=== PATIENT | male | born 1940 | race Caucasian/White ===

== ENCOUNTER → 2017-03-16 | Outpatient (CLI) | payer MEDICAID, MEDICARE ==
[~2017-03-16] MED LIST: *BLDWK1; *BLDWK2; *BLDWK8; *ECHO -; /CARB20TAB; /CARBXR20T; /ESOM40CA; /ESOM40CA OR; /PANT40TA; ACET65TA; ACET65TA OR; AMLO10TA2 PO; AMLO10TAB OR; ASPI81TAEC PO; ATEN50TA2; ATENOLOL50; ATENOLOL50 PO; ATOR1TAB21 PO; CARB1TAB20 PO; CEFT500T; COLA100C2 PO; COLACE PO; DEPA250C; DEPA250T3; DEPA250T3 OR; DEPA250T3 PO; DEPA500T; DEPA500T OR; DEPA500T PO; DEPA500T2 OR; DEPAKOT500 PO; DIOV160T5; DIOVAN160 PO; DIVA125C5 PO; DIVA250T7 PO; DIVA500T9 PO; DONETAB6 PO; ESOM1CAP5 PO; FERR325T; FERR325T PO; FERR325T3 PO; FERROUS325; FERROUS325 PO; KEPPRA PO; LISI40TA; LOPR50TA OR; MACR50CA; MACR50CA OR; MAG-TAB; METO-207 PO; METO10TA2; METO50TA4 PO; MILKSUS; NAME10TA PO; NEXI20CA OR; NEXI40CA PO; NEXI40GR PO; NEXIUM40 PO; OXYB5TAB5 OR; PERC5TAB8 OR; PROTONIX40 PO; REGLAN10 PO; SELSUN; SENN8.6T5; SLOWTAB; TEGR200T; TEGR200T OR; TEGR200T PO; TOPR25TA PO; TRAM50TA2 OR; VICO5TAB; VITA-121 PO; VITA10002 PO; VITA100027; VITA100T; VITA100T OR; VITA500C24 PO; VITA500T OR; VITAD1000T PO; VITAMIN B12; ZANTAC150 PO; [UNRECOGNIZED DRUG - CODE] PO; [UNRECOGNIZED DRUG - CODE] PO
[2017-03-16 08:34] LABS: BASO # 0.1 K/mm3 (0.0-0.2); BASO % 1.6 % (0.0-1.0); EOS # 0.5 K/mm3 (0.0-0.50); EOS % 12.5 % (0.0-3.0); LYMPH # 1.5 K/mm3 (1.5-4.5); LYMPH % 31.5 % (24.0-44.0); MEAN CORPUSCULAR HEMOGLOBIN 31.9 pg (27.0-33.0); MEAN CORPUSCULAR HGB CONC 32.5 g/dl (32.0-36.5); MEAN CORPUSCULAR VOLUME 98.3 fl (80.0-96.0); MONO # 0.3 K/mm3 (0.0-0.8); MONO % 8.2 % (0.0-5.0); NEUTROPHILS # 1.8 K/mm3 (1.8-7.7); RED CELL DISTRIBUTION WIDTH 12.6 % (11.5-14.5); WHITE BLOOD COUNT 4.2 K/mm3 (4.0-10.0)
[2017-03-16 09:16] LABS: ALBUMIN 3.3 GM/DL (3.2-5.2); ALBUMIN/GLOBULIN RATIO 0.89 (1.00-1.93); ALKALINE PHOSPHATASE 69 U/L (45-117); ALT/SGPT 21 U/L (12-78); ANION GAP 7 MEQ/L (8-16); AST/SGOT 18 U/L (15-37); BILIRUBIN,TOTAL 0.3 MG/DL (0.2-1.0); BLOOD UREA NITROGEN 31 MG/DL (7-18); CALCIUM LEVEL 8.4 MG/DL (8.8-10.2); CARBON DIOXIDE LEVEL 28 MEQ/L (21-32); CHLORIDE LEVEL 101 MEQ/L (98-107); CHOLESTEROL LEVEL 187 MG/DL (<200); CREATININE FOR GFR 1.02 MG/DL (0.70-1.30); FREE T4 0.73 NG/DL (0.76-1.46); GLOMERULAR FILTRATION RATE > 60.0 (>42); GLUCOSE, FASTING 85 MG/DL (83-110); POTASSIUM SERUM 4.5 MEQ/L (3.5-5.1); SODIUM LEVEL 136 MEQ/L (136-145); TRIGLYCERIDES LEVEL 177 MG/DL (<150)
[2017-03-16 10:16] LABS: FOLATE > 24.0 NG/ML; VITAMIN B12 LEVEL 1419 PG/ML
== END ==
LOC: M LAB 07:53
PROVIDERS: ATTEND Family Medicine
DX: I10 Essential (primary) hypertension (principal); K21.9 Gastro-esophageal reflux disease without esophagitis; G30.9 Alzheimer's disease, unspecified; G40.909 Epilepsy, unspecified, not intractable, without status epilepticus

== ENCOUNTER → 2017-03-16 | Outpatient (CLI) | payer MEDICAID, MEDICARE ==
[2017-03-16 08:32] LABS: BASO % 1.1 % (0.0-1.0); EOS # 0.6 K/mm3 (0.0-0.50); EOS % 14.2 % (0.0-3.0); LARGE UNSTAINED CELL # 0.1 K/mm3 (0.0-0.4); LARGE UNSTAINED CELL % 3.4 % (0.0-4.0); LYMPH # 1.4 K/mm3 (1.5-4.5); MEAN CORPUSCULAR HEMOGLOBIN 32.1 pg (27.0-33.0); MEAN CORPUSCULAR HGB CONC 32.8 g/dl (32.0-36.5); MONO # 0.3 K/mm3 (0.0-0.8); MONO % 7.6 % (0.0-5.0); NEUTROPHILS # 1.8 K/mm3 (1.8-7.7); NEUTROPHILS % 42.7 % (36.0-66.0); PLATELET COUNT, AUTOMATED 174 k/mm3 (150-450); RED CELL DISTRIBUTION WIDTH 12.7 % (11.5-14.5); WHITE BLOOD COUNT 4.1 K/mm3 (4.0-10.0)
[2017-03-16 08:55] LABS: ALBUMIN 3.2 GM/DL (3.2-5.2); ALBUMIN/GLOBULIN RATIO 0.82 (1.00-1.93); ALKALINE PHOSPHATASE 71 U/L (45-117); ALT/SGPT 22 U/L (12-78); ANION GAP 7 MEQ/L (8-16); AST/SGOT 19 U/L (15-37); BILIRUBIN,TOTAL 0.3 MG/DL (0.2-1.0); BLOOD UREA NITROGEN 31 MG/DL (7-18); CALCIUM LEVEL 8.8 MG/DL (8.8-10.2); CARBAMAZEPINE (TEGRETOL) LEVEL 4.6 UG/ML (4.0-10.0); CARBON DIOXIDE LEVEL 29 MEQ/L (21-32); CHLORIDE LEVEL 101 MEQ/L (98-107); CREATININE FOR GFR 1.06 MG/DL (0.70-1.30); GLOMERULAR FILTRATION RATE > 60.0 (>42); GLUCOSE, FASTING 87 MG/DL (83-110); POTASSIUM SERUM 5.1 MEQ/L (3.5-5.1); SODIUM LEVEL 137 MEQ/L (136-145); TOTAL PROTEIN 7.1 GM/DL (6.4-8.2)
== END ==
LOC: M LAB 07:56
PROVIDERS: ATTEND Psychiatry & Neurology Neurology
DX: G40.909 Epilepsy, unspecified, not intractable, without status epilepticus (principal)

== ENCOUNTER → 2017-03-17 | Outpatient (REF) | payer MEDICARE | LOC: SKLABADC 09:05 | PROVIDERS: ATTEND Family Medicine | DX: I10 Essential (primary) hypertension (principal); Z79.899 Other long term (current) drug therapy ==

== ENCOUNTER → 2017-05-27 | Outpatient (REF) | payer MEDICARE ==
[~2017-05-27] MED LIST changes: +FERR1TAB8 PO; -METO-207 PO; +METO1TAB7 PO
[2017-05-27 10:38] LABS: MEAN CORPUSCULAR HEMOGLOBIN 32.5 pg (27.0-33.0); MEAN CORPUSCULAR VOLUME 98.5 fl (80.0-96.0); RED CELL DISTRIBUTION WIDTH 12.5 % (11.5-14.5); WHITE BLOOD COUNT 3.9 K/mm3 (4.0-10.0)
[2017-05-27 11:30] LABS: ALBUMIN/GLOBULIN RATIO 0.77 (1.00-1.93); ALKALINE PHOSPHATASE 65 U/L (45-117); ALT/SGPT 21 U/L (12-78); ANION GAP 7 MEQ/L (8-16); AST/SGOT 17 U/L (15-37); BILIRUBIN,TOTAL 0.3 MG/DL (0.2-1.0); BLOOD UREA NITROGEN 21 MG/DL (7-18); CALCIUM LEVEL 8.9 MG/DL (8.8-10.2); CARBON DIOXIDE LEVEL 30 MEQ/L (21-32); CHLORIDE LEVEL 99 MEQ/L (98-107); CREATININE FOR GFR 0.91 MG/DL (0.70-1.30); FREE T4 0.76 NG/DL (0.76-1.46); GLOMERULAR FILTRATION RATE > 60.0 (>42); GLUCOSE, FASTING 77 MG/DL (83-110); SODIUM LEVEL 136 MEQ/L (136-145); TOTAL PROTEIN 6.9 GM/DL (6.4-8.2)
== END ==
LOC: SKLABADC 08:48
PROVIDERS: ATTEND Family Medicine
DX: E03.9 Hypothyroidism, unspecified (principal)

== ENCOUNTER → 2017-07-26 | Outpatient (REF) | payer MEDICARE ==
[2017-07-26 11:44] LABS: BASO # 0.1 K/mm3 (0.0-0.2); BASO % 1.4 % (0.0-1.0); EOS # 0.6 K/mm3 (0.0-0.50); EOS % 12.5 % (0.0-3.0); LYMPH # 1.6 K/mm3 (1.5-4.5); LYMPH % 31.3 % (24.0-44.0); MEAN CORPUSCULAR HEMOGLOBIN 32.8 pg (27.0-33.0); MEAN CORPUSCULAR HGB CONC 33.2 g/dl (32.0-36.5); MEAN CORPUSCULAR VOLUME 98.9 fl (80.0-96.0); MONO # 0.4 K/mm3 (0.0-0.8); MONO % 8.4 % (0.0-5.0); NEUTROPHILS # 2.1 K/mm3 (1.8-7.7); RED CELL DISTRIBUTION WIDTH 12.5 % (11.5-14.5)
== END ==
LOC: SKLABADC 08:54
PROVIDERS: ATTEND Family Medicine
DX: D64.9 Anemia, unspecified (principal)

== ENCOUNTER → 2018-01-19 | Outpatient (REF) | payer MEDICARE ==
[2018-01-19 11:08] LABS: FREE T4 0.81 NG/DL (0.76-1.46)
== END ==
LOC: SKLABADC 09:40
DX: E03.9 Hypothyroidism, unspecified (principal)
CPT/HCPCS: 84443

== ENCOUNTER 2018-01-21 14:55 | Inpatient (IN) | payer MEDICARE, MEDICAID ==
[2018-01-21 15:44] LABS: HEMATOCRIT 43.4 % (42.0-52.0); HEMOGLOBIN 14.5 g/dl (14.0-18.0); MEAN CORPUSCULAR HEMOGLOBIN 31.7 pg (27.0-33.0); MEAN CORPUSCULAR HGB CONC 33.4 g/dl (32.0-36.5); RED BLOOD COUNT 4.57 10^6/uL (4.30-6.10); RED CELL DISTRIBUTION WIDTH 12.7 % (11.5-14.5); WHITE BLOOD COUNT 5.9 10^3/uL (4.0-10.0)
[2018-01-21 15:45] LABS: BASO % 0.5 % (0.0-1.0); EOS # 0.1 10^3/uL (0.0-0.50); EOS % 1.7 % (0.0-3.0); IMMATURE GRANULOCYTE % 0.3 % (0-3.0); LYMPH # 1.2 10^3/uL (1.5-4.5); LYMPH % 19.9 % (24.0-44.0); MONO # 0.8 10^3/uL (0.0-0.8); NEUTROPHILS # 3.8 10^3/uL (1.8-7.7); NEUTROPHILS % 64.6 % (36.0-66.0); PLATELET COUNT, AUTOMATED 170 10^3/uL (150-450)
[2018-01-21 16:03] LABS: AMMONIA 23 uMOL/L (<32)
[2018-01-21 16:07] LABS: ALBUMIN 3.6 GM/DL (3.2-5.2); ALBUMIN/GLOBULIN RATIO 0.88 (1.00-1.93); ALKALINE PHOSPHATASE 110 U/L (45-117); ALT/SGPT 33 U/L (12-78); ANION GAP 7 MEQ/L (8-16); AST/SGOT 23 U/L (7-37); BILIRUBIN,TOTAL 0.3 MG/DL (0.2-1.0); BLOOD UREA NITROGEN 21 MG/DL (7-18); CALCIUM LEVEL 9.3 MG/DL (8.8-10.2); CARBON DIOXIDE LEVEL 29 MEQ/L (21-32); CHLORIDE LEVEL 96 MEQ/L (98-107); GLOMERULAR FILTRATION RATE > 60.0 (>42); GLUCOSE, FASTING 97 MG/DL (70-100); POTASSIUM SERUM 4.3 MEQ/L (3.5-5.1); SODIUM LEVEL 132 MEQ/L (136-145); TOTAL PROTEIN 7.7 GM/DL (6.4-8.2); VALPROIC ACID (DEPAKOTE) 92.1 UG/ML (50.0-100.0)
[2018-01-21 16:10] LABS: LACTIC ACID SEPSIS PROTOCOL 1.4 MMOL/L (0.4-2.0)
[2018-01-21 17:17] LABS: ABG BASE EXCESS 0.7 (-2.0-2.0); ABG HCO3 24.1 MEQ/L (22.0-26.0); ABG O2 SATURATION 95.3 % (95.0-99.0); ABG PARTIAL PRESSURE CO2 34.9 mmHg (35.0-45.0); ABG PARTIAL PRESSURE O2 74.1 mmHg (75.0-100.0); ABG STANDARD HCO3 25.1 MEQ/L (22.0-26.0); ABG TOTAL CO2 25.2 MEQ/L (23.0-31.0); ABG pH (ARTERIAL) 7.457 UNITS (7.350-7.450)
[2018-01-21 17:19] LABS: AMORPHOUS SEDIMENT RFX SMALL (NEGATIVE); KETONE, URINE AUTO RFX TRACE mg/dL (NEGATIVE); LEUKOCYTE ESTERASE UR AUTO RFX 1+ (NEGATIVE); NITRITE, URINE AUTO RFX NEGATIVE (NEGATIVE); RBC, URINE AUTO RFX 6 /HPF (0-3); SPECIFIC GRAVITY UR AUTO RFX 1.014 (1.002-1.035); SQUAM EPITHELIAL CELL UR AURFX 0 /HPF (0-6); WBC, URINE AUTO RFX 17 /HPF (0-3)
[2018-01-21 17:36] LABS: CPK CREATINE PHOSPHOKINASE 63 U/L (39-308); TROPONIN I < 0.02 NG/ML (< 0.10)
[2018-01-21 17:37] LABS: CARBAMAZEPINE (TEGRETOL) LEVEL 6.9 UG/ML (4.0-10.0)
[2018-01-21 17:37] LABS: FREE T4 0.88 NG/DL (0.76-1.46)
[2018-01-21 17:38] LABS: INFLUENZA A AMPLIFICATION NEGATIVE (NEGATIVE); INFLUENZA B AMPLIFICATION NEGATIVE (NEGATIVE)
[2018-01-21 17:42] LABS: CK-MB VALUE MASS 1.2 NG/ML (0.0-3.6)
[2018-01-21] MEDS: CEFTRIAXONE SOD 1 GM in APPROPRIATE DILUENT 1 EA IV (18:30)
[2018-01-21] MEDS: NS 1,000 ML IV (19:18)
[2018-01-21] MEDS ORDERED: ONDANSETRON 4MG/2ML VIAL (J2405) IV (19:30)
[2018-01-21] MEDS: DOCUSATE SODIUM 100 MG CAP PO (21:00)
[2018-01-22] MEDS: ACETAMINOPHEN TAB 650MG DOSE (2X325MG) PO (00:22)
[2018-01-22] MEDS: DIVALPROEX 500MG *ER* TAB PO ×2 (00:23→20:57)
[2018-01-22] MEDS: HEPARIN SOD (PORCINE) 5000 UNITS/ML VIAL SC ×4 (00:23→21:06)
[2018-01-22] MEDS: GENTAMICIN 0.3% OPHTH SOL 5 ML BTL OU ×7 (00:24→23:33)
[2018-01-22] MEDS: carBAMazepine 200 MG TAB PO ×3 (00:26→21:06)
[2018-01-22] MEDS ORDERED: LORazepam 2 MG/ML VIAL (J2060) As Ordered (02:54)
[2018-01-22] MEDS ORDERED: LORazepam 2 MG/ML VIAL (J2060) IV (03:00)
[2018-01-22 03:04] LABS: BEDSIDE GLUCOSE 122 MG/DL (83-110)
[2018-01-22] MEDS: NS 1,000 ML IV (04:10)
[2018-01-22 06:13] LABS: HEMATOCRIT 35.1 % (42.0-52.0); PLATELET COUNT, AUTOMATED 129 10^3/uL (150-450); RED BLOOD COUNT 3.62 10^6/uL (4.30-6.10); RED CELL DISTRIBUTION WIDTH 12.8 % (11.5-14.5); WHITE BLOOD COUNT 11.1 10^3/uL (4.0-10.0)
[2018-01-22] MEDS: LEVOTHYROXINE 25MCG TABLET (0.025MG) PO (06:16)
[2018-01-22 06:19] LABS: HEMOGLOBIN 11.6 g/dl (14.0-18.0)
[2018-01-22 06:46] LABS: ANION GAP 8 MEQ/L (8-16); BLOOD UREA NITROGEN 24 MG/DL (7-18); CALCIUM LEVEL 8.4 MG/DL (8.8-10.2); CARBON DIOXIDE LEVEL 26 MEQ/L (21-32); CHLORIDE LEVEL 103 MEQ/L (98-107); CREATININE FOR GFR 1.05 MG/DL (0.70-1.30); GLOMERULAR FILTRATION RATE > 60.0 (>42); GLUCOSE, FASTING 84 MG/DL (70-100); POTASSIUM SERUM 3.9 MEQ/L (3.5-5.1); SODIUM LEVEL 137 MEQ/L (136-145)
[2018-01-22] MEDS: DOCUSATE SODIUM 100 MG CAP PO ×2 (09:34→20:57)
[2018-01-22] MEDS: VITAMIN D 1,000 INTERNATIONAL UNITS TABLET PO (09:34)
[2018-01-22] MEDS: METOPROLOL SUCC (TopROL XL) 50MG **XL** TAB PO (09:34)
[2018-01-22] MEDS: FERROUS SULFATE 325MG TAB PO (09:34)
[2018-01-22] MEDS: CYANOCOBALAMIN 500 MCG TAB PO (09:35)
[2018-01-22] MEDS: DIVALPROEX 250MG *ER* TAB PO (09:35)
[2018-01-22] MEDS: ASPIRIN 81 MG ENTERIC TAB PO (09:36)
[2018-01-22] MEDS: CEFTRIAXONE SOD 1 GM in APPROPRIATE DILUENT 1 EA IV (18:17)
[2018-01-23] MEDS: GENTAMICIN 0.3% OPHTH SOL 5 ML BTL OU ×5 (04:00→20:33)
[2018-01-23 05:20] LABS: HEMATOCRIT 38.1 % (42.0-52.0); HEMOGLOBIN 12.4 g/dl (14.0-18.0); MEAN CORPUSCULAR HEMOGLOBIN 31.5 pg (27.0-33.0); MEAN CORPUSCULAR HGB CONC 32.5 g/dl (32.0-36.5); MEAN CORPUSCULAR VOLUME 96.7 fl (80.0-96.0); PLATELET COUNT, AUTOMATED 121 10^3/uL (150-450); RED BLOOD COUNT 3.94 10^6/uL (4.30-6.10); RED CELL DISTRIBUTION WIDTH 12.9 % (11.5-14.5); WHITE BLOOD COUNT 4.8 10^3/uL (4.0-10.0)
[2018-01-23 05:34] LABS: ANION GAP 8 MEQ/L (8-16); BLOOD UREA NITROGEN 22 MG/DL (7-18); CALCIUM LEVEL 8.2 MG/DL (8.8-10.2); CARBON DIOXIDE LEVEL 26 MEQ/L (21-32); CHLORIDE LEVEL 104 MEQ/L (98-107); CREATININE FOR GFR 0.89 MG/DL (0.70-1.30); GLOMERULAR FILTRATION RATE > 60.0 (>42); GLUCOSE, FASTING 82 MG/DL (70-100); POTASSIUM SERUM 3.6 MEQ/L (3.5-5.1); SODIUM LEVEL 138 MEQ/L (136-145)
[2018-01-23] MEDS: HEPARIN SOD (PORCINE) 5000 UNITS/ML VIAL SC ×3 (06:17→21:46)
[2018-01-23] MEDS: LEVOTHYROXINE 25MCG TABLET (0.025MG) PO ×2 (06:17→08:51)
[2018-01-23] MEDS: DIVALPROEX 250MG *ER* TAB PO (08:50)
[2018-01-23] MEDS: ASPIRIN 81 MG ENTERIC TAB PO (08:50)
[2018-01-23] MEDS: DOCUSATE SODIUM 100 MG CAP PO ×2 (08:50→20:33)
[2018-01-23] MEDS: METOPROLOL SUCC (TopROL XL) 50MG **XL** TAB PO (08:51)
[2018-01-23] MEDS: VITAMIN D 1,000 INTERNATIONAL UNITS TABLET PO (08:51)
[2018-01-23] MEDS: FERROUS SULFATE 325MG TAB PO (08:51)
[2018-01-23] MEDS: CYANOCOBALAMIN 500 MCG TAB PO (08:51)
[2018-01-23] MEDS: carBAMazepine 200 MG TAB PO ×2 (08:53→20:33)
[2018-01-23] MEDS ORDERED: SLF 3 ML SYR IV (14:30)
[2018-01-23] MEDS: CEFTRIAXONE SOD 1 GM in APPROPRIATE DILUENT 1 EA IV (18:17)
[2018-01-23] MEDS: DIVALPROEX 500MG *ER* TAB PO (20:33)
[2018-01-23] MEDS: SLF 3 ML SYR IV (21:46)
[2018-01-24] MEDS: GENTAMICIN 0.3% OPHTH SOL 5 ML BTL OU ×6 (04:37→20:05)
[2018-01-24 05:22] LABS: HEMATOCRIT 37.7 % (42.0-52.0); HEMOGLOBIN 12.6 g/dl (14.0-18.0); MEAN CORPUSCULAR HEMOGLOBIN 32.1 pg (27.0-33.0); MEAN CORPUSCULAR HGB CONC 33.4 g/dl (32.0-36.5); MEAN CORPUSCULAR VOLUME 96.2 fl (80.0-96.0); PLATELET COUNT, AUTOMATED 134 10^3/uL (150-450); RED BLOOD COUNT 3.92 10^6/uL (4.30-6.10); RED CELL DISTRIBUTION WIDTH 12.9 % (11.5-14.5); WHITE BLOOD COUNT 5.4 10^3/uL (4.0-10.0)
[2018-01-24 05:45] LABS: ANION GAP 7 MEQ/L (8-16); BLOOD UREA NITROGEN 25 MG/DL (7-18); CALCIUM LEVEL 8.4 MG/DL (8.8-10.2); CARBON DIOXIDE LEVEL 28 MEQ/L (21-32); CHLORIDE LEVEL 103 MEQ/L (98-107); GLOMERULAR FILTRATION RATE > 60.0 (>42); GLUCOSE, FASTING 84 MG/DL (70-100); POTASSIUM SERUM 3.7 MEQ/L (3.5-5.1); SODIUM LEVEL 138 MEQ/L (136-145)
[2018-01-24] MEDS: HEPARIN SOD (PORCINE) 5000 UNITS/ML VIAL SC ×3 (06:07→23:01)
[2018-01-24] MEDS: SLF 3 ML SYR IV ×3 (06:08→20:32)
[2018-01-24] MEDS: FERROUS SULFATE 325MG TAB PO (09:06)
[2018-01-24] MEDS: METOPROLOL SUCC (TopROL XL) 50MG **XL** TAB PO (09:06)
[2018-01-24] MEDS: DOCUSATE SODIUM 100 MG CAP PO ×2 (09:07→20:32)
[2018-01-24] MEDS: ASPIRIN 81 MG ENTERIC TAB PO (09:07)
[2018-01-24] MEDS: VITAMIN D 1,000 INTERNATIONAL UNITS TABLET PO (09:07)
[2018-01-24] MEDS: CYANOCOBALAMIN 500 MCG TAB PO (09:07)
[2018-01-24] MEDS: DIVALPROEX 250MG *ER* TAB PO (09:08)
[2018-01-24] MEDS: carBAMazepine 200 MG TAB PO ×2 (09:08→20:32)
[2018-01-24] MEDS: CEFTRIAXONE SOD 1 GM in APPROPRIATE DILUENT 1 EA IV (16:05)
[2018-01-24] MEDS: DIVALPROEX 500MG *ER* TAB PO (20:31)
[2018-01-25] MEDS: GENTAMICIN 0.3% OPHTH SOL 5 ML BTL OU ×7 (00:11→23:56)
[2018-01-25 05:16] LABS: HEMATOCRIT 38.9 % (42.0-52.0); HEMOGLOBIN 12.8 g/dl (14.0-18.0); MEAN CORPUSCULAR HEMOGLOBIN 31.3 pg (27.0-33.0); MEAN CORPUSCULAR HGB CONC 32.9 g/dl (32.0-36.5); MEAN CORPUSCULAR VOLUME 95.1 fl (80.0-96.0); PLATELET COUNT, AUTOMATED 146 10^3/uL (150-450); RED BLOOD COUNT 4.09 10^6/uL (4.30-6.10); RED CELL DISTRIBUTION WIDTH 12.7 % (11.5-14.5); WHITE BLOOD COUNT 5.2 10^3/uL (4.0-10.0)
[2018-01-25] MEDS: LEVOTHYROXINE 25MCG TABLET (0.025MG) PO (05:31)
[2018-01-25] MEDS: HEPARIN SOD (PORCINE) 5000 UNITS/ML VIAL SC ×3 (05:32→21:19)
[2018-01-25] MEDS: SLF 3 ML SYR IV ×3 (05:38→21:20)
[2018-01-25 05:42] LABS: ANION GAP 6 MEQ/L (8-16); BLOOD UREA NITROGEN 23 MG/DL (7-18); CALCIUM LEVEL 8.5 MG/DL (8.8-10.2); CARBON DIOXIDE LEVEL 29 MEQ/L (21-32); CHLORIDE LEVEL 102 MEQ/L (98-107); CREATININE FOR GFR 0.84 MG/DL (0.70-1.30); GLOMERULAR FILTRATION RATE > 60.0 (>42); GLUCOSE, FASTING 85 MG/DL (70-100); POTASSIUM SERUM 3.5 MEQ/L (3.5-5.1); SODIUM LEVEL 137 MEQ/L (136-145)
[2018-01-25] MEDS: carBAMazepine 200 MG TAB PO ×2 (08:20→21:18)
[2018-01-25] MEDS: VITAMIN D 1,000 INTERNATIONAL UNITS TABLET PO (08:20)
[2018-01-25] MEDS: DOCUSATE SODIUM 100 MG CAP PO ×2 (08:20→21:18)
[2018-01-25] MEDS: CYANOCOBALAMIN 500 MCG TAB PO (08:20)
[2018-01-25] MEDS: ASPIRIN 81 MG ENTERIC TAB PO (08:20)
[2018-01-25] MEDS: DIVALPROEX 250MG *ER* TAB PO ×2 (08:20→21:19)
[2018-01-25] MEDS: FERROUS SULFATE 325MG TAB PO (08:21)
[2018-01-25] MEDS: METOPROLOL SUCC (TopROL XL) 50MG **XL** TAB PO (08:22)
[2018-01-25] MEDS: CEFTRIAXONE SOD 1 GM in APPROPRIATE DILUENT 1 EA IV (18:39)
[2018-01-26] MEDS: GENTAMICIN 0.3% OPHTH SOL 5 ML BTL OU ×3 (04:33→11:23)
[2018-01-26] MEDS: SLF 3 ML SYR IV ×2 (05:43→13:01)
[2018-01-26] MEDS: HEPARIN SOD (PORCINE) 5000 UNITS/ML VIAL SC ×2 (05:44→13:01)
[2018-01-26] MEDS: LEVOTHYROXINE 25MCG TABLET (0.025MG) PO (05:44)
[2018-01-26 05:51] LABS: HEMATOCRIT 37.8 % (42.0-52.0); HEMOGLOBIN 12.6 g/dl (14.0-18.0); MEAN CORPUSCULAR HEMOGLOBIN 31.7 pg (27.0-33.0); MEAN CORPUSCULAR HGB CONC 33.3 g/dl (32.0-36.5); PLATELET COUNT, AUTOMATED 141 10^3/uL (150-450); RED BLOOD COUNT 3.98 10^6/uL (4.30-6.10); RED CELL DISTRIBUTION WIDTH 12.6 % (11.5-14.5); WHITE BLOOD COUNT 4.7 10^3/uL (4.0-10.0)
[2018-01-26 06:15] LABS: ANION GAP 6 MEQ/L (8-16); BLOOD UREA NITROGEN 24 MG/DL (7-18); CALCIUM LEVEL 8.5 MG/DL (8.8-10.2); CARBON DIOXIDE LEVEL 29 MEQ/L (21-32); CHLORIDE LEVEL 101 MEQ/L (98-107); CREATININE FOR GFR 0.96 MG/DL (0.70-1.30); GLOMERULAR FILTRATION RATE > 60.0 (>42); GLUCOSE, FASTING 84 MG/DL (70-100); POTASSIUM SERUM 3.9 MEQ/L (3.5-5.1); SODIUM LEVEL 136 MEQ/L (136-145)
[2018-01-26] MEDS: DOCUSATE SODIUM 100 MG CAP PO (08:52)
[2018-01-26] MEDS: DIVALPROEX 250MG *ER* TAB PO (08:53)
[2018-01-26] MEDS: CYANOCOBALAMIN 500 MCG TAB PO (08:53)
[2018-01-26] MEDS: FERROUS SULFATE 325MG TAB PO (08:53)
[2018-01-26] MEDS: carBAMazepine 200 MG TAB PO (08:54)
[2018-01-26] MEDS: METOPROLOL SUCC (TopROL XL) 50MG **XL** TAB PO (08:54)
[2018-01-26] MEDS: ASPIRIN 81 MG ENTERIC TAB PO (08:54)
[2018-01-26] MEDS: VITAMIN D 1,000 INTERNATIONAL UNITS TABLET PO (08:54)
[2018-01-26] MEDS ORDERED: SLF 3 ML SYR IV ×2 (09:15→14:00)
== END 2018-01-26 14:28 | disposition home or self-care (01) | DRG 689 ==
LOC: M PCU 01-22 21:58 → M ED 14:55 → M ED INP 19:18
DX: N39.0 Urinary tract infection, site not specified (principal); G93.41 Metabolic encephalopathy; E87.1 Hypo-osmolality and hyponatremia; Z66 Do not resuscitate; H01.009 Unspecified blepharitis unspecified eye, unspecified eyelid; H10.9 Unspecified conjunctivitis; R56.9 Unspecified convulsions; K21.9 Gastro-esophageal reflux disease without esophagitis; I10 Essential (primary) hypertension; F03.90 Unspecified dementia, unspecified severity, without behavioral disturbance, psychotic disturbance, mood disturbance, and anxiety; Z79.82 Long term (current) use of aspirin; Z79.899 Other long term (current) drug therapy

== ENCOUNTER → 2018-01-21 | Outpatient (REF) | payer MEDICARE, MEDICAID | LOC: M SFHCLERA 13:32 | DX: R41.82 Altered mental status, unspecified (principal); [UNRECOGNIZED DIAGNOSIS CODE] | CPT/HCPCS: 87086 ==

== ENCOUNTER → 2018-08-03 | Outpatient (CLI) | payer MEDICARE, MEDICAID, OTHER ==
[2018-08-03 10:09] LABS: BASO # 0.1 10^3/uL (0.0-0.2); BASO % 1.3 % (0.0-1.0); EOS # 0.4 10^3/uL (0.0-0.50); EOS % 9.6 % (0.0-3.0); HEMOGLOBIN 13.5 g/dl (13.5-17.5); IMMATURE GRANULOCYTE % 0.4 % (0-3.0); LYMPH # 1.2 10^3/uL (1.5-4.5); LYMPH % 26.8 % (24.0-44.0); MEAN CORPUSCULAR HEMOGLOBIN 31.1 pg (27.0-33.0); MEAN CORPUSCULAR HGB CONC 32.9 g/dl (32.0-36.5); MEAN CORPUSCULAR VOLUME 94.5 fl (80.0-96.0); MONO # 0.5 10^3/uL (0.0-0.8); MONO % 12.1 % (0.0-5.0); NEUTROPHILS # 2.2 10^3/uL (1.8-7.7); NEUTROPHILS % 49.8 % (36.0-66.0); PLATELET COUNT, AUTOMATED 173 10^3/uL (150-450); RED BLOOD COUNT 4.34 10^6/uL (4.30-6.10); WHITE BLOOD COUNT 4.5 10^3/uL (4.0-10.0)
[2018-08-03 10:41] LABS: ALBUMIN 3.5 GM/DL (3.2-5.2); ALBUMIN/GLOBULIN RATIO 0.97 (1.00-1.93); ALKALINE PHOSPHATASE 68 U/L (45-117); ALT/SGPT 20 U/L (12-78); ANION GAP 8 MEQ/L (8-16); AST/SGOT 17 U/L (7-37); BILIRUBIN,TOTAL 0.4 MG/DL (0.2-1.0); BLOOD UREA NITROGEN 22 MG/DL (7-18); CALCIUM LEVEL 8.8 MG/DL (8.8-10.2); CARBON DIOXIDE LEVEL 28 MEQ/L (21-32); CHLORIDE LEVEL 101 MEQ/L (98-107); GLOMERULAR FILTRATION RATE > 60.0 (>42); GLUCOSE, FASTING 89 MG/DL (70-100); POTASSIUM SERUM 4.3 MEQ/L (3.5-5.1); SODIUM LEVEL 137 MEQ/L (136-145); TOTAL PROTEIN 7.1 GM/DL (6.4-8.2); VALPROIC ACID (DEPAKOTE) 64.2 UG/ML (50.0-100.0)
== END ==
LOC: M LAB 09:35
DX: R56.9 Unspecified convulsions (principal)
CPT/HCPCS: 80156

== ENCOUNTER 2018-08-20 11:46 | Emergency (ER) | payer MEDICARE, MEDICAID ==
[2018-08-20 12:27] LABS: BASO # 0.1 10^3/uL (0.0-0.2); BASO % 0.7 % (0.0-1.0); EOS # 0.1 10^3/uL (0.0-0.50); EOS % 0.7 % (0.0-3.0); HEMATOCRIT 44.5 % (42.0-52.0); HEMOGLOBIN 14.8 g/dl (13.5-17.5); IMMATURE GRANULOCYTE % 0.1 % (0-3.0); LYMPH # 0.7 10^3/uL (1.5-4.5); LYMPH % 9.3 % (24.0-44.0); MEAN CORPUSCULAR HEMOGLOBIN 31.7 pg (27.0-33.0); MEAN CORPUSCULAR HGB CONC 33.3 g/dl (32.0-36.5); MEAN CORPUSCULAR VOLUME 95.3 fl (80.0-96.0); NEUTROPHILS # 5.5 10^3/uL (1.8-7.7); NEUTROPHILS % 76.2 % (36.0-66.0); PLATELET COUNT, AUTOMATED 176 10^3/uL (150-450); RED BLOOD COUNT 4.67 10^6/uL (4.30-6.10); RED CELL DISTRIBUTION WIDTH 13.4 % (11.5-14.5); WHITE BLOOD COUNT 7.3 10^3/uL (4.0-10.0)
[2018-08-20] MEDS: NS 1,000 ML IV (12:33)
[2018-08-20 12:56] LABS: ALBUMIN 3.4 GM/DL (3.2-5.2); ALBUMIN/GLOBULIN RATIO 0.79 (1.00-1.93); ALKALINE PHOSPHATASE 79 U/L (45-117); ALT/SGPT 22 U/L (12-78); AMYLASE 73 U/L (25-115); ANION GAP 11 MEQ/L (8-16); AST/SGOT 19 U/L (7-37); BILIRUBIN,DIRECT 0.1 MG/DL (0.0-0.2); BILIRUBIN,TOTAL 0.5 MG/DL (0.2-1.0); BLOOD UREA NITROGEN 22 MG/DL (7-18); CALCIUM LEVEL 8.7 MG/DL (8.8-10.2); CARBON DIOXIDE LEVEL 27 MEQ/L (21-32); CHLORIDE LEVEL 99 MEQ/L (98-107); CREATININE FOR GFR 1.12 MG/DL (0.70-1.30); GLOMERULAR FILTRATION RATE > 60.0 (>42); GLUCOSE, FASTING 115 MG/DL (70-100); LIPASE 143 U/L (73-393); POTASSIUM SERUM 4.1 MEQ/L (3.5-5.1); SODIUM LEVEL 137 MEQ/L (136-145); TOTAL PROTEIN 7.7 GM/DL (6.4-8.2)
[2018-08-20 13:02] LABS: LACTIC ACID SEPSIS PROTOCOL 1.4 MMOL/L (0.4-2.0)
[2018-08-20 13:05] LABS: KETONE, URINE AUTO RFX TRACE mg/dL (NEGATIVE); RBC, URINE AUTO RFX 8 /HPF (0-3); SPECIFIC GRAVITY UR AUTO RFX 1.015 (1.002-1.035); SQUAM EPITHELIAL CELL UR AURFX 0 /HPF (0-6)
[2018-08-20 13:10] LABS: LEUKOCYTE ESTERASE UR AUTO RFX 2+ (NEGATIVE); NITRITE, URINE AUTO RFX POSITIVE (NEGATIVE); WBC, URINE AUTO RFX 67 /HPF (0-3)
[2018-08-20 13:31] LABS: INFLUENZA A AMPLIFICATION NEGATIVE (NEGATIVE); INFLUENZA B AMPLIFICATION NEGATIVE (NEGATIVE); RSV AMPLIFICATION NEGATIVE (NEGATIVE)
[2018-08-20] MEDS: cefTRIAXone SOD 1 GM in D5W MINI-BAG PLUS 50 ML IV (14:09)
== END 2018-08-20 15:00 | disposition home or self-care (01) ==
LOC: M ED 11:46
DX: N39.0 Urinary tract infection, site not specified (principal); I10 Essential (primary) hypertension; G40.909 Epilepsy, unspecified, not intractable, without status epilepticus; F03.90 Unspecified dementia, unspecified severity, without behavioral disturbance, psychotic disturbance, mood disturbance, and anxiety; K21.9 Gastro-esophageal reflux disease without esophagitis; E53.8 Deficiency of other specified B group vitamins; K73.9 Chronic hepatitis, unspecified; F20.9 Schizophrenia, unspecified; Z79.899 Other long term (current) drug therapy; Z79.82 Long term (current) use of aspirin; Z79.890 Hormone replacement therapy; Z87.891 Personal history of nicotine dependence
CPT/HCPCS: J0696

== ENCOUNTER 2018-10-14 03:51 | Emergency (ER) | payer MEDICARE, MEDICAID ==
[2018-10-14] MEDS: NS 500 ML IV (04:15)
[2018-10-14 04:34] LABS: BASO # 0.1 10^3/uL (0.0-0.2); BASO % 0.8 % (0.0-1.0); EOS # 0.2 10^3/uL (0.0-0.50); EOS % 1.9 % (0.0-3.0); HEMATOCRIT 39.4 % (42.0-52.0); HEMOGLOBIN 12.8 g/dl (13.5-17.5); IMMATURE GRANULOCYTE % 0.4 % (0-3.0); LYMPH # 1.4 10^3/uL (1.5-4.5); LYMPH % 10.9 % (24.0-44.0); MEAN CORPUSCULAR HEMOGLOBIN 31.5 pg (27.0-33.0); MEAN CORPUSCULAR HGB CONC 32.5 g/dl (32.0-36.5); MONO # 1.2 10^3/uL (0.0-0.8); MONO % 9.6 % (0.0-5.0); NEUTROPHILS # 9.7 10^3/uL (1.8-7.7); NEUTROPHILS % 76.4 % (36.0-66.0); PLATELET COUNT, AUTOMATED 249 10^3/uL (150-450); RED BLOOD COUNT 4.06 10^6/uL (4.30-6.10); RED CELL DISTRIBUTION WIDTH 13.9 % (11.5-14.5); WHITE BLOOD COUNT 12.7 10^3/uL (4.0-10.0)
[2018-10-14 04:56] LABS: ANION GAP 8 MEQ/L (8-16); BLOOD UREA NITROGEN 31 MG/DL (7-18); CALCIUM LEVEL 8.5 MG/DL (8.8-10.2); CARBAMAZEPINE (TEGRETOL) LEVEL 6.8 UG/ML (4.0-10.0); CARBON DIOXIDE LEVEL 27 MEQ/L (21-32); CHLORIDE LEVEL 102 MEQ/L (98-107); GLOMERULAR FILTRATION RATE > 60.0 (>42); GLUCOSE, FASTING 88 MG/DL (70-100); POTASSIUM SERUM 4.3 MEQ/L (3.5-5.1); SODIUM LEVEL 137 MEQ/L (136-145); VALPROIC ACID (DEPAKOTE) 63.2 UG/ML (50.0-100.0)
[2018-10-14] MEDS: DIVALPROEX 250 MG TAB PO (05:15)
== END 2018-10-14 08:01 | disposition home or self-care (01) ==
LOC: M ED 03:51
DX: G40.909 Epilepsy, unspecified, not intractable, without status epilepticus (principal); E86.0 Dehydration
CPT/HCPCS: 70450

== ENCOUNTER → 2019-02-27 | Outpatient (CLI) | payer MEDICARE, MEDICAID ==
[~2019-02-27] MED LIST changes: -/CARB20TAB; -/CARBXR20T; -/ESOM40CA; -/ESOM40CA OR; -/PANT40TA; +AMLO10TA5 PO; +ASPI1TAB15 PO; +CARB1TAB20; +DEPA250T2 PO; +KEFL500C17 PO; +LEVO25TA5 PO; +METO-1 PO; +NEXI1CAP3; +NEXI1CAP3 OR; +PROT1TAB2; +TEGR1TAB; -TOPR25TA PO
[2019-02-27 08:55] LABS: BASO # 0.1 10^3/uL (0.0-0.2); BASO % 1.6 % (0.0-1.0); EOS # 0.6 10^3/uL (0.0-0.50); EOS % 9.9 % (0.0-3.0); HEMATOCRIT 42.2 % (42.0-52.0); HEMOGLOBIN 13.6 g/dl (13.5-17.5); LYMPH # 1.5 10^3/uL (1.5-4.5); LYMPH % 26.8 % (24.0-44.0); MEAN CORPUSCULAR HEMOGLOBIN 31.3 pg (27.0-33.0); MEAN CORPUSCULAR HGB CONC 32.2 g/dl (32.0-36.5); MEAN CORPUSCULAR VOLUME 97.2 fl (80.0-96.0); MONO # 0.6 10^3/uL (0.0-0.8); MONO % 10.7 % (0.0-5.0); NEUTROPHILS # 2.8 10^3/uL (1.8-7.7); NEUTROPHILS % 50.6 % (36.0-66.0); PLATELET COUNT, AUTOMATED 186 10^3/uL (150-450); RED BLOOD COUNT 4.34 10^6/uL (4.30-6.10); WHITE BLOOD COUNT 5.5 10^3/uL (4.0-10.0)
[2019-02-27 09:28] LABS: ALBUMIN 3.4 GM/DL (3.2-5.2); ALT/SGPT 23 U/L (12-78); BILIRUBIN,TOTAL 0.3 MG/DL (0.2-1.0); BLOOD UREA NITROGEN 32 MG/DL (7-18); CALCIUM LEVEL 8.8 MG/DL (8.8-10.2); CARBON DIOXIDE LEVEL 30 MEQ/L (21-32); CHLORIDE LEVEL 103 MEQ/L (98-107); CHOLESTEROL LEVEL 202 MG/DL (<200); CHOLESTEROL RISK RATIO 3.366 (<5); CREATININE FOR GFR 1.05 MG/DL (0.70-1.30); FREE T4 0.76 NG/DL (0.76-1.46); GLOMERULAR FILTRATION RATE > 60.0 (>42); GLUCOSE, FASTING 86 MG/DL (70-100); HDL CHOLESTEROL 60 MG/DL (>40); LDL CHOLESTEROL 107 MG/DL (<100); NON-HDL-C 142 MG/DL; POTASSIUM SERUM 4.4 MEQ/L (3.5-5.1); SODIUM LEVEL 138 MEQ/L (136-145); TOTAL PROTEIN 7.2 GM/DL (6.4-8.2); TRIGLYCERIDES LEVEL 176 MG/DL (<150)
== END ==
LOC: M LAB 08:11
PROVIDERS: ATTEND Family Medicine
DX: E03.9 Hypothyroidism, unspecified (principal); E78.5 Hyperlipidemia, unspecified; R56.9 Unspecified convulsions; Z51.81 Encounter for therapeutic drug level monitoring

== ENCOUNTER → 2019-02-27 | Outpatient (CLI) | payer MEDICARE, MEDICAID ==
[2019-02-27 08:54] LABS: BASO # 0.1 10^3/uL (0.0-0.2); BASO % 1.2 % (0.0-1.0); EOS # 0.5 10^3/uL (0.0-0.50); EOS % 9.3 % (0.0-3.0); HEMATOCRIT 42.4 % (42.0-52.0); HEMOGLOBIN 13.7 g/dl (13.5-17.5); LYMPH # 1.5 10^3/uL (1.5-4.5); LYMPH % 27.5 % (24.0-44.0); MEAN CORPUSCULAR HEMOGLOBIN 31.3 pg (27.0-33.0); MEAN CORPUSCULAR HGB CONC 32.3 g/dl (32.0-36.5); MEAN CORPUSCULAR VOLUME 96.8 fl (80.0-96.0); MONO # 0.6 10^3/uL (0.0-0.8); MONO % 11.4 % (0.0-5.0); NEUTROPHILS # 2.8 10^3/uL (1.8-7.7); NEUTROPHILS % 50.1 % (36.0-66.0); PLATELET COUNT, AUTOMATED 193 10^3/uL (150-450); RED BLOOD COUNT 4.38 10^6/uL (4.30-6.10); WHITE BLOOD COUNT 5.6 10^3/uL (4.0-10.0)
[2019-02-27 09:22] LABS: ALBUMIN 3.5 GM/DL (3.2-5.2); ALT/SGPT 23 U/L (12-78); BILIRUBIN,TOTAL 0.3 MG/DL (0.2-1.0); BLOOD UREA NITROGEN 31 MG/DL (7-18); CALCIUM LEVEL 8.8 MG/DL (8.8-10.2); CARBAMAZEPINE (TEGRETOL) LEVEL 6.4 UG/ML (4.0-10.0); CARBON DIOXIDE LEVEL 31 MEQ/L (21-32); CHLORIDE LEVEL 102 MEQ/L (98-107); CREATININE FOR GFR 1.08 MG/DL (0.70-1.30); GLOMERULAR FILTRATION RATE > 60.0 (>42); GLUCOSE, FASTING 86 MG/DL (70-100); POTASSIUM SERUM 4.4 MEQ/L (3.5-5.1); SODIUM LEVEL 137 MEQ/L (136-145); TOTAL PROTEIN 7.1 GM/DL (6.4-8.2); VALPROIC ACID (DEPAKOTE) 80.4 UG/ML (50.0-100.0)
== END ==
LOC: M LAB 08:20
PROVIDERS: ATTEND Psychiatry & Neurology Neurology
DX: R56.9 Unspecified convulsions (principal); Z51.81 Encounter for therapeutic drug level monitoring

== ENCOUNTER 2019-03-12 09:12 | Inpatient (IN) | payer MEDICARE, MEDICAID ==
[~2019-03-12] VITALS: Ht 177.8 cm; Wt 66.0 kg
[2019-03-12] MEDS: METOPROLOL SUCC (TopROL XL) 50MG **XL** TAB PO SCH (09:00)
[2019-03-12] MEDS ORDERED: DIVA250T7 PO (09:54)
[2019-03-12] MEDS ORDERED: VITA100014 PO (09:54)
[2019-03-12] MEDS ORDERED: METO1TAB7 PO (09:54)
[2019-03-12] MEDS ORDERED: ASPI81TA85 PO (09:54)
[2019-03-12] MEDS ORDERED: FERR1TAB8 PO (09:54)
[2019-03-12] MEDS ORDERED: VITA-122 PO (09:54)
[2019-03-12] MEDS ORDERED: CARB1TAB20 PO ×2 (09:54)
[2019-03-12] MEDS ORDERED: SYNT50TA PO (09:54)
[2019-03-12 09:57] LABS: VENOUS BASE EXCESS -0.7 (-2.0-2.0); VENOUS HCO3 23.8 MEQ/L (23.0-27.0); VENOUS O2 SATURATION 88.7 % (60.0-80.0); VENOUS PARTIAL PRESSURE CO2 39.2 mmHg (38.0-50.0); VENOUS PARTIAL PRESSURE O2 56.3 mmHg (30.0-50.0); VENOUS PH 7.402 UNITS (7.330-7.430); VENOUS STANDARD HCO3 23.7 MEQ/L
[2019-03-12 10:02] LABS: BASO % 0.2 % (0.0-1.0); HEMATOCRIT 42.4 % (42.0-52.0); HEMOGLOBIN 13.9 g/dl (13.5-17.5); LYMPH # 0.7 10^3/uL (1.5-4.5); MEAN CORPUSCULAR HEMOGLOBIN 31.7 pg (27.0-33.0); MEAN CORPUSCULAR HGB CONC 32.8 g/dl (32.0-36.5); MEAN CORPUSCULAR VOLUME 96.6 fl (80.0-96.0); MONO # 1.8 10^3/uL (0.0-0.8); MONO % 15.8 % (0.0-5.0); NEUTROPHILS # 8.9 10^3/uL (1.8-7.7); NEUTROPHILS % 77.7 % (36.0-66.0); PLATELET COUNT, AUTOMATED 177 10^3/uL (150-450); RED BLOOD COUNT 4.39 10^6/uL (4.30-6.10); WHITE BLOOD COUNT 11.5 10^3/uL (4.0-10.0)
--- NOTE | 2019-03-12 10:15 | REP ---
CT Head without contrast HISTORY: Altered mental status COMPARISON: 10/14/2018 Areas of decreased attenuation are present in the periventricular and subcortical white matter. This represents small-vessel ischemic disease. There is no intraparenchymal hemorrhage, acute infarct, mass or midline shift. The ventricular system and cortical sulci as well as subarachnoid space in the posterior fossa are dilated consistent with moderate volume loss. There is no extra cerebral collection. There is no fracture. T mucosal thickening is present in the ethmoid sinuses. IMPRESSION: 1. Small vessel ischemic disease. 2. Moderate volume loss. Electronically Signed by Kwabena Roberts MD 03/12/2019 10:06 A
--- NOTE | 2019-03-12 10:16 | REP ---
Chest one-view HISTORY: Altered mental status Comparison: 08/20/2018 There is elevation of the right hemidiaphragm. The lungs are clear. The heart is normal in size. The pulmonary vasculature is normal in appearance. Impression: No acute disease. Electronically Signed by Kwabena Roberts MD 03/12/2019 10:07 A
--- NOTE | 2019-03-12 10:21 | ECGEPIP ---
Stationary ECG Study [facility] - ED Test Date: 2019-03-12 Pat Name: LINO FAY Department: Room: - Gender: M Medical Oncology Physician: : [id number] Requested By: Diann Garrido Order Number: [id number] Reading MD: Diann Garrido Measurements Intervals Mather Rate: 88 P: 58 AK: 149 QRS: 15 QRSD: 97 T: 36 QT: 358 QTc: 435 Interpretive Statements SINUS RHYTHM SIMILAR 08/20/18 Electronically Signed On 03-12-2019 10:20:53 EDT by Diann Garrido
[2019-03-12] MEDS: NS 1,000 ML IV SCH ×2 (10:23→19:43)
[2019-03-12 10:36] LABS: ALBUMIN 3.3 GM/DL (3.2-5.2); ALT/SGPT 23 U/L (12-78); BILIRUBIN,DIRECT 0.1 MG/DL (0.0-0.2); BILIRUBIN,TOTAL 0.4 MG/DL (0.2-1.0); BLOOD UREA NITROGEN 41 MG/DL (7-18); CALCIUM LEVEL 8.4 MG/DL (8.8-10.2); CARBAMAZEPINE (TEGRETOL) LEVEL 11.2 UG/ML (4.0-10.0); CARBON DIOXIDE LEVEL 26 MEQ/L (21-32); CHLORIDE LEVEL 101 MEQ/L (98-107); CPK CREATINE PHOSPHOKINASE 135 U/L (39-308); CREATININE FOR GFR 2.63 MG/DL (0.70-1.30); GLOMERULAR FILTRATION RATE 25.3 (>42); GLUCOSE, FASTING 115 MG/DL (70-100); MB/CK RELATIVE INDEX 1.26 (< OR =4); POTASSIUM SERUM 4.1 MEQ/L (3.5-5.1); SODIUM LEVEL 136 MEQ/L (136-145); TROPONIN I < 0.02 NG/ML (< 0.10); VALPROIC ACID (DEPAKOTE) 97.2 UG/ML (50.0-100.0)
[2019-03-12 10:38] LABS: AMPHETAMINES LEVEL URINE NEGATIVE (NEGATIVE); BARBITURATES URINE NEGATIVE (NEGATIVE); BENZODIAZEPINES URINE NEGATIVE (NEGATIVE); CANNABINOIDS URINE NEGATIVE (NEGATIVE); COCAINE METABOLITE URINE NEGATIVE (NEGATIVE); METHADONE URINE NEGATIVE (NEGATIVE); OPIATES URINE NEGATIVE (NEGATIVE); PHENCYCLIDINE URINE NEGATIVE (NEGATIVE)
[2019-03-12 10:40] LABS: OSMOLALITY SERUM 302 MOSM/KG (280-301)
[2019-03-12] MEDS ORDERED: cefTRIAXone SOD 2 GM in D5W MINI-BAG PLUS 50 ML IV ONE (12:15)
--- NOTE | 2019-03-12 12:15 | REP ---
CT ABDOMEN AND PELVIS WITHOUT CONTRAST: HISTORY: Renal failure. COMPARISON: 01/23/2009 The liver, pancreas, spleen and adrenal glands are normal in appearance. Stranding is present in the perinephric fat bilaterally. This may represent inflammation or scarring. There is mild dilatation of the renal collecting systems and proximal and mid ureters. The distal ureters are not seen. There is no mass, adenopathy or free fluid. Parenchymal density is present in the right lower lobe consistent with atelectasis or scar. The patient is status post left total hip replacement. This partially obscures the inferior pelvis. The patient is status post repair of left inguinal hernia. A small amount of fat and scar tissue are present at the surgical site. The urinary bladder is normal in appearance. A large quantity of stool is present in the distal sigmoid colon and rectum. Degenerative change is present in the spine. There is an old compression fracture of the L1 vertebral body with minimal height loss. IMPRESSION: 1. There is bilateral stranding in the perinephric fat. This may represent inflammatory change or scar. There is mild dilatation of the renal collecting systems and proximal and mid ureters. 2. Right lower lobe atelectasis or infiltrate. 3. The patient is status post repair of a left inguinal hernia. A small amount of fat and scar tissue are present at the hernia site. Electronically Signed by Kwabena Roberts MD 03/12/2019 12:19 P
[2019-03-12] MEDS ORDERED: cefTRIAXone SOD 1 GM in D5W MINI-BAG PLUS 50 ML IV SCH (14:00)
[2019-03-12] MEDS: AZITHROMYCIN INJ 500 MG, VIAL MATE ADAPTER 1 EACH in D5W 250 ML IV SCH (14:51)
--- NOTE | 2019-03-12 14:59 | HPEPDOC ---
General Date of Admission Mar 12, 2019 at 13:08 Chief Complaint The patient is a 78-year-old male who was brought into the emergency room after he was found nonresponsive and febrile at home. History of Present Illness Patient is a 78-year-old male with a PMHx of HTN, Seizure disorder, Dementia, Hx of UTI (Klebsiella), GERD who presented to the emergency room after his found nonresponsive at home. Family had noted that he had been experiencing a fever. EMS was called and patient was transferred to [facility] for further evaluation Discussed with Nephew, Neel Barajas. Reported that at baseline is confused and requires several attempts before he can give a simple answer. Nephew indicated that patients mentation has been deteriorating over the last 3 or 4 days. He attributes this to the fact that he may have a urinary tract infection as this was common in the past. As per the nephew. Patient did not have any other complaints other than a mild cough , although was unable to expectorate anything. Home Medications Scheduled Aspirin (Aspir 81) 81 Mg Tablet.dr, 81 MG PO DAILY, (Reported) Carbamazepine (Carbamazepine) 200 Mg Tablet, 300 MG PO QAM, (Reported) Carbamazepine (Carbamazepine) 200 Mg Tablet, 200 MG PO QHS, (Reported) Cholecalciferol (Vitamin D3) (Vitamin D3) 1,000 Unit Tablet, 1,000 UNIT PO DAILY, (Reported) Cyanocobalamin (Vitamin B-12) (Vitamin B-12) 1,000 Mcg Tablet, 1,000 MCG PO DAILY, (Reported) Divalproex Sodium (Divalproex Sodium ER) 250 Mg Tab.er.24h, 750 MG PO BID, (Reported) Ferrous Sulfate (Ferrous Sulfate) 325 Mg Tablet, 325 MG PO DAILY, (Reported) Levothyroxine Sodium (Synthroid) 50 Mcg Tablet, 50 MCG PO DAILY, (Reported) Metoprolol Succinate (Metoprolol Succinate) 50 Mg Tab.er.24h, 50 MG PO DAILY, (Reported) Allergies Coded Allergies: No Known Allergies (Verified , 10/29/08) Past Medical History Medical History HTN, Seizure disorder, Dementia, Hx of UTI (Klebsiella), GERD Surgical History - Based on review of medical records there does not appear to be any past surgical history Family History - Unable to be obtained; however, is noncontributory Social History - Unable to be obtained as patient is very confused / demented - Lives with Nephew, Neel Barajas - No documented history of smoking, alcohol use or illicit substances Review of Systems Other systems Unable to obtain review of systems this patient is confused / demented Vital Signs - Vitals: BP 158/92, HR 82, RR 18, Sat 95%NC2L, Temp 99.1F - General: Lying in bed, No acute distress, Awake / Alert - HEENT: NC, AT, PERRLA - CVS: RRR, +S1S2, - Murmurs / rubs / gallops - Lungs: Fair air entry bilaterally, + Rhonchi appreciated at R lung base, no wheezing / crackles - Abdomen: Soft, Non-distended, Non-tender - Extremities: No lower extremity edema, No calf tenderness - Neuro: No focal motor or sensory deficit - Skin: No visible rashes Laboratory Data Labs 24H Laboratory Tests 2 03/12/19 09:35: Immature Granulocyte % (Auto) 0.3, White Blood Count 11.5H, Red Blood Count 4.39, Hemoglobin 13.9, Hematocrit 42.4, Mean Corpuscular Volume 96.6H, Mean Corpuscular Hemoglobin 31.7, Mean Corpuscular Hemoglobin Concent 32.8, Red Cell Distribution Width 13.4, Platelet Count 177, Neutrophils (%) (Auto) 77.7H, Ly mphocytes (%) (Auto) 6.0L, Monocytes (%) (Auto) 15.8H, Eosinophils (%) (Auto) 0.0, Basophils (%) (Auto) 0.2, Neutrophils # (Auto) 8.9H, Lymphocytes # (Auto) 0.7L, Monocytes # (Auto) 1.8H, Eosinophils # (Auto) 0.0, Basophils # (Auto) 0.0, Nucleated Red Blood Cells % (auto) 0.0, Urine Color YELLOW, Urine Appearance HAZY, Urine pH 5.0, Urine Specific [place] 1.014, Urine Protein NEGATIVE, Urine Glucose (UA) NEGATIVE, Urine Ketones NEGATIVE, Urine Blood 2+H, Urine Nitrite NEGATIVE, Urine Bilirubin NEGATIVE, Urine Urobilinogen 0.2, Urine Leukocyte Esterase 3+H, Urine WBC (Auto) TNTCH, Urine RBC (Auto) 5H, Urine Hyaline Casts (Auto) 0, Urine Bacteria (Auto) 1+H, Urine Squamous Epithelial Cells 0, Urine Mucus (Auto) SMALL, Urine Sperm (Auto) , Blood Gas Bicarbonate Standard 23.7, Venous Blood pH 7.402, Venous Blood Partial Pressure CO2 39.2, Venous Blood Partial Pressure O2 56.3H, Venous Blood Total Carbon Dioxide 25.0, Venous Blood HCO3 23.8, Venous Blood Oxygen Saturation 88.7H, Venous Blood Base Excess -0.7, Anion Gap 9, Glomerular Filtration Rate 25.3L, Osmolality 302H, Lactic Acid Leve l 2.4*H, Calcium Level 8.4L, Aspartate Amino Transf (AST/SGOT) 27, Alanine Aminotransferase (ALT/SGPT) 23, Alkaline Phosphatase 73, Total Bilirubin 0.4, Direct Bilirubin 0.1, Ammonia 30, Total Creatine Kinase 135, Creatine Kinase MB 2.0, Creatine Kinase MB Relative Index 1.26, Troponin I < 0.02, Total Protein 8.0, Albumin 3.3, Albumin/Globulin Ratio 0.70L, Thyroid Stimulating Hormone (TSH) 1.720, Urine Amphetamines Screen NEGATIVE, Urine Benzodiazepines Screen NEGATIVE, Urine Opiates Screen NEGATIVE, Urine Methadone Screen NEGATIVE, Urine Barbiturates Screen NEGATIVE, Valproic Acid (Depakene) Level 97.2, Carbamazepine (Tegretol) Level 11.2H, Urine Phencyclidine Screen NEGATIVE, Urine Cocaine Metabolite Screen NEGATIVE, Urine Cannabinoids Screen NEGATIVE 03/12/19 09:38: Bedside Glucose (Misc Panel) 132H 03/12/19 14:23: CBC/BMP Laboratory Tests 03/12/19 09:35 Red Blood Count 4.39, Mean Corpuscular Volume 96.6 H, Mean Corpuscular Hemoglobin 31.7, Mean Corpuscular Hemoglobin Concent 32.8, Red Cell Distribution Width 13.4, Neutrophils (%) (Auto) 77.7 H, Lymphocytes (%) (Auto) 6.0 L, Monocytes (%) (Auto) 15.8 H, Eosinophils (%) (Auto) 0.0, Basophils (%) (Auto) 0.2, Neutrophils # (Auto) 8.9 H, Lymphocytes # (Auto) 0.7 L, Monocytes # (Auto) 1.8 H, Eosinophils # (Auto) 0.0, Basophils # (Auto) 0.0 Microbiology Microbiology 03/12/19 Blood Culture, Received Pending 03/12/19 Blood Culture, Received Pending 03/12/19 Urine Culture, Received Pending Plan / VTE VTE Prophylaxis Ordered?: Yes Plan Plan Acute metabolic encephalopathy - likely 2/2 infection - Patient is arousable; can answer simple questions by shaking head - Does not appear to have any focal neurologic deficits - Leukocytosis; no significant electrolyte abnormalities - CT Head 03/12: 1. Small vessel ischemic disease. 2. Moderate volume loss. - c/w Antibiotics and IV fluids (See below) Infection - likely 2/2 Urinary tract infection and Possibly 2/2 Community acquired pneumonia - Discussed with nephNeel he; reported that patient has been experiencing deterioration in mental status over the last couple of days, reports that this usually occurs when he has a urinary tract infection - Was reported to have a fever at home - UA consistent with infection - Leukocytosis and Lactic acidosis - Blood cultures / Urine cultures / Sputum cultures pending - CXR 03/12: No acute disease. - CT abd/pelv 03/12: 1. There is bilateral stranding in the perinephric fat. This may represent inflammatory change or scar. There is mild dilatation of the renal collecting systems and proximal and mid ureters. 2. Right lower lobe atelectasis or infiltrate. 3. The patient is status post repair of a left inguinal hernia. A small amount of fat and scar tissue are present at the hernia site. - Will start IV fluid hydration; Ceftriaxone and Azithromcyin Acute kidney injury - possibly 2/2 pre-renal etiology, - Cr baseline of ~1.0 - Cr on admission of 2.63 - Will check renal US - c/w IV fluid hydration HTN - BP moderately controlled - c/w Metoprolol Hypothyroidism - TSH within normal limits - c/w Levothyroxine Seizure disorder - Last seizure was reported at >2 years ago - Valproic acid and Carbamazepine level noted - Had follow up with Neurology on Wednesday (03/10/2019) and performed an EEG; no changes in medications - c/w Valproic acid and Carbamazepine DVT prophylaxis - Will start Heparin Discussed with Neel Barajas about Code Status; currently is Full Code SHAHZAD BLAKE MD Mar 12, 2019 14:59
[2019-03-12 16:00] VITALS: BP 136/94
[2019-03-12] MEDS: carBAMazepine 200 MG TAB PO SCH (21:00)
[2019-03-12] MEDS: DIVALPROEX 250MG *ER* TAB PO SCH (21:00)
[2019-03-12] MEDS: HEPARIN SOD (PORCINE) 5000 UNITS/ML VIAL SQ SCH (21:51)
[2019-03-12 22:00] VITALS: BP 147/73
[2019-03-13] MEDS: NS 1,000 ML IV SCH (03:55)
[2019-03-13] MEDS: LEVOTHYROXINE 50MCG TABLET (0.05MG) PO SCH (05:19)
[2019-03-13] MEDS: HEPARIN SOD (PORCINE) 5000 UNITS/ML VIAL SQ SCH ×3 (05:26→23:23)
[2019-03-13 06:00] VITALS: BP 146/80
[2019-03-13 07:29] LABS: BASO % 0.3 % (0.0-1.0); EOS % 0.2 % (0.0-3.0); HEMATOCRIT 38.3 % (42.0-52.0); HEMOGLOBIN 12.6 g/dl (13.5-17.5); LYMPH # 0.9 10^3/uL (1.5-4.5); LYMPH % 8.9 % (24.0-44.0); MEAN CORPUSCULAR HEMOGLOBIN 32.1 pg (27.0-33.0); MEAN CORPUSCULAR HGB CONC 32.9 g/dl (32.0-36.5); MEAN CORPUSCULAR VOLUME 97.5 fl (80.0-96.0); MONO # 0.8 10^3/uL (0.0-0.8); MONO % 8.6 % (0.0-5.0); NEUTROPHILS % 81.6 % (36.0-66.0); PLATELET COUNT, AUTOMATED 149 10^3/uL (150-450); RED BLOOD COUNT 3.93 10^6/uL (4.30-6.10); WHITE BLOOD COUNT 9.8 10^3/uL (4.0-10.0)
[2019-03-13 07:57] LABS: CALCIUM LEVEL 7.9 MG/DL (8.8-10.2); CREATININE FOR GFR 1.33 MG/DL (0.70-1.30); GLOMERULAR FILTRATION RATE 55.7 (>42); MAGNESIUM LEVEL 2.3 MG/DL (1.8-2.4)
[2019-03-13] MEDS: METOPROLOL SUCC (TopROL XL) 50MG **XL** TAB PO SCH (08:36)
[2019-03-13] MEDS: FERROUS SULFATE 325MG TAB PO SCH (08:36)
[2019-03-13] MEDS: VITAMIN D 1,000 INTERNATIONAL UNITS TABLET PO SCH (08:37)
[2019-03-13] MEDS: ASPIRIN 81 MG ENTERIC TAB PO SCH (08:37)
[2019-03-13] MEDS: CYANOCOBALAMIN 500 MCG TAB PO SCH (08:37)
[2019-03-13] MEDS: carBAMazepine 200 MG TAB PO SCH ×2 (08:37→23:22)
[2019-03-13] MEDS: DIVALPROEX 250MG *ER* TAB PO SCH ×2 (08:37→23:22)
[2019-03-13] MEDS: cefTRIAXone SOD 1 GM in D5W MINI-BAG PLUS 50 ML IV SCH (11:38)
--- NOTE | 2019-03-13 12:01 | IPNPDOC ---
Text Note Date of Service The patient was seen on 03/13/19. NOTE Subjective: Patient is a 78-year-old male with a PMHx of HTN, Seizure disorder, Dementia, Hx of UTI (Klebsiella), GERD who presented to the emergency room after his found nonresponsive at home. Family had noted that he had been experiencing a fever. EMS was called and patient was transferred to [facility] for further evaluation. Patient was seen and examined at the bedside. Patient appears to be more awake and alert. Denies any significant pain. Is unable to answer many questions. Objective: Vitals (See below) General: Lying in bed, no acute distress, comfortable, Awake / Alert HEENT: NC, AT CVS: RRR, +S1S2 Lungs: Fair air entry b/l, auscultation is without any wheezing, rales or rhonchi Abdomen: Soft, ND, NT Extremities: No evidence of LE edema, - Calf tenderness Assessment and plan: Acute metabolic encephalopathy - likely 2/2 infection - Mentation appears to be improving - Not appear to have any focal neurologic deficits - s/p Leukocytosis; no significant electrolyte abnormalities - CT Head 03/12: 1. Small vessel ischemic disease. 2. Moderate volume loss. - c/w Antibiotics and IV fluids (See below) Infection - likely 2/2 Urinary tract infection and Possibly 2/2 Community acquired pneumonia - Discussed with nephNeel he; reported that patient has been experiencing deterioration in mental status over the last couple of days, reports that this usually occurs when he has a urinary tract infection - Was reported to have a fever at home - UA consistent with infection - s/p Leukocytosis; s/p Lactic acidosis - Blood cultures / Urine cultures / Sputum cultures pending - CXR 03/12: No acute disease. - CT abd/pelv 03/12: 1. There is bilateral stranding in the perinephric fat. This may represent inflammatory change or scar. There is mild dilatation of the renal collecting systems and proximal and mid ureters. 2. Right lower lobe atelectasis or infiltrate. 3. The patient is status post repair of a left inguinal hernia. A small amount of fat and scar tissue are present at the hernia site. - c/w IV fluid hydration; Ceftriaxone and Azithromycin (Day #2) Acute kidney injury - possibly 2/2 pre-renal etiology, - Cr baseline of ~1.0 - Cr on admission of 2.63 - c/w IV fluid hydration HTN - BP better controlled - c/w Metoprolol Hypothyroidism - TSH within normal limits - c/w Levothyroxine Seizure disorder - Last seizure was reported at >2 years ago - Valproic acid and Carbamazepine level noted - Had follow up with Neurology on Wednesday (03/10/2019) and performed an EEG; no changes in medications - c/w Seizure precautions - c/w Valproic acid and Carbamazepine DVT prophylaxis - c/w Heparin Code status: - Discussed with Neel Barajas; currently is Full Code Disposition: - Awaiting clinical improvement - Will start PT thereafter VS,Fishbone, I+O VS, Fishbone, I+O Laboratory Tests 03/13/19 07:18 Red Blood Count 3.93 L, Mean Corpuscular Volume 97.5 H, Mean Corpuscular Hemoglobin 32.1, Mean Corpuscular Hemoglobin Concent 32.9, Red Cell Distribution Width 13.6, Neutrophils (%) (Auto) 81.6 H, Lymphocytes (%) (Auto) 8.9 L, [place] cytes (%) (Auto) 8.6 H, Eosinophils (%) (Auto) 0.2, Basophils (%) (Auto) 0.3, Neutrophils # (Auto) 8.0 H, Lymphocytes # (Auto) 0.9 L, Monocytes # (Auto) 0.8, Eosinophils # (Auto) 0.0, Basophils # (Auto) 0.0, Calcium Level 7.9 L Vital Signs Date Time Temp Pulse Resp B/P (MAP) Pulse Ox O2 Delivery O2 Flow Rate FiO2 03/13/19 08:36 89 146/80 03/13/19 06:00 98.2 20 93 03/12/19 15:15 Nasal Cannula 2.0 I&O- Last 24 Hours up to 6 AM 03/13/19 06:00 Intake Total 250 ml Output Total 2600 ml Balance -2350 ml SHAHZAD BLAKE MD Mar 13, 2019 12:01
[2019-03-13 14:00] VITALS: BP 106/78
[2019-03-13] MEDS: AZITHROMYCIN INJ 500 MG, VIAL MATE ADAPTER 1 EACH in D5W 250 ML IV SCH (14:58)
[2019-03-13 22:00] VITALS: BP 128/68
[2019-03-14] MEDS: LEVOTHYROXINE 50MCG TABLET (0.05MG) PO SCH (05:46)
[2019-03-14] MEDS: HEPARIN SOD (PORCINE) 5000 UNITS/ML VIAL SQ SCH ×3 (05:46→21:29)
[2019-03-14 06:00] VITALS: BP 157/78
[2019-03-14 06:53] LABS: BASO # 0.1 10^3/uL (0.0-0.2); BASO % 0.6 % (0.0-1.0); EOS # 0.1 10^3/uL (0.0-0.50); EOS % 1.4 % (0.0-3.0); HEMATOCRIT 36.8 % (42.0-52.0); LYMPH # 1.5 10^3/uL (1.5-4.5); LYMPH % 17.6 % (24.0-44.0); MEAN CORPUSCULAR HEMOGLOBIN 31.3 pg (27.0-33.0); MEAN CORPUSCULAR HGB CONC 32.6 g/dl (32.0-36.5); MEAN CORPUSCULAR VOLUME 96.1 fl (80.0-96.0); MONO # 0.8 10^3/uL (0.0-0.8); MONO % 9.6 % (0.0-5.0); NEUTROPHILS % 70.4 % (36.0-66.0); PLATELET COUNT, AUTOMATED 154 10^3/uL (150-450); RED BLOOD COUNT 3.83 10^6/uL (4.30-6.10); WHITE BLOOD COUNT 8.6 10^3/uL (4.0-10.0)
[2019-03-14 07:17] LABS: BLOOD UREA NITROGEN 28 MG/DL (7-18); CALCIUM LEVEL 8.1 MG/DL (8.8-10.2); CARBON DIOXIDE LEVEL 28 MEQ/L (21-32); CHLORIDE LEVEL 110 MEQ/L (98-107); CREATININE FOR GFR 1.08 MG/DL (0.70-1.30); GLOMERULAR FILTRATION RATE > 60.0 (>42); GLUCOSE, FASTING 100 MG/DL (70-100); MAGNESIUM LEVEL 2.2 MG/DL (1.8-2.4); POTASSIUM SERUM 3.4 MEQ/L (3.5-5.1); SODIUM LEVEL 143 MEQ/L (136-145)
[2019-03-14] MEDS ORDERED: POTASSIUM CHLORIDE 10 MEQ SR TABLET PO ONE (07:30)
[2019-03-14] MEDS: carBAMazepine 200 MG TAB PO SCH ×2 (10:32→21:29)
[2019-03-14] MEDS: FERROUS SULFATE 325MG TAB PO SCH (10:34)
[2019-03-14] MEDS: METOPROLOL SUCC (TopROL XL) 50MG **XL** TAB PO SCH (10:34)
[2019-03-14] MEDS: DIVALPROEX 250MG *ER* TAB PO SCH ×2 (10:34→21:29)
[2019-03-14] MEDS: ASPIRIN 81 MG ENTERIC TAB PO SCH (10:36)
[2019-03-14] MEDS: VITAMIN D 1,000 INTERNATIONAL UNITS TABLET PO SCH (10:36)
[2019-03-14] MEDS: CYANOCOBALAMIN 500 MCG TAB PO SCH (10:37)
--- NOTE | 2019-03-14 11:48 | IPNPDOC ---
Text Note Date of Service The patient was seen on 03/14/19. NOTE Subjective: Patient is a 78-year-old male with a PMHx of HTN, Seizure disorder, Dementia, Hx of UTI (Klebsiella), GERD who presented to the emergency room after his found nonresponsive at home. Family had noted that he had been experiencing a fever. EMS was called and patient was transferred to [facility] for further evaluation. Patient was seen and examined at the bedside. Denies any pain. She has more awake and alert today. He is oriented 3. He is unsure of who the president is. He'll be working with physical therapy today. Unable to answer very many questions. Objective: Vitals (See below) General: Lying in bed, no acute distress, comfortable, Awake / Alert HEENT: NC, AT CVS: RRR, +S1S2 Lungs: r entry b/l is fair, without rhonchi / rales / wheezing Abdomen: No evidence of distension or tenderness and remains soft Extremities: No LE pitting edema, - Calf tenderness Assessment and plan: s/p Acute metabolic encephalopathy - likely 2/2 infection - Currently, patient appears to be at his baseline level of function - Not appear to have any focal neurologic deficits - s/p Leukocytosis; no significant electrolyte abnormalities - CT Head 03/12: 1. Small vessel ischemic disease. 2. Moderate volume loss. - c/w Antibiotics and IV fluids (See below) Infection - likely 2/2 Urinary tract infection and Possibly 2/2 Community acquired pneumonia - Discussed with nephNeel he; reported that patient has been experiencing deterioration in mental status over the last couple of days, reports that this usually occurs when he has a urinary tract infection - Was reported to have a fever at home - UA consistent with infection - s/p Leukocytosis; s/p Lactic acidosis - Blood cultures 03/12: Negative at 48 hours; Urine culture 03/12: Staphylococcus Warneri - CXR 03/12: No acute disease. - CT abd/pelv 03/12: 1. There is bilateral stranding in the perinephric fat. This may represent inflammatory change or scar. There is mild dilatation of the renal collecting systems and proximal and mid ureters. 2. Right lower lobe atelectasis or infiltrate. 3. The patient is status post repair of a left inguinal hernia. A small amount of fat and scar tissue are present at the hernia site. - c/w IV fluid hydration; Ceftriaxone and Azithromycin (Day #3) s/p Acute kidney injury - possibly 2/2 pre-renal etiology, - Cr baseline of ~1.0; Cr on admission of 2.63 - Creatinine has returned to baseline - s/p IV fluid hydration HTN - BP better controlled - c/w Metoprolol Hypothyroidism - TSH within normal limits - c/w Levothyroxine Seizure disorder - Last seizure was reported at >2 years ago - Valproic acid and Carbamazepine level noted - Had follow up with Neurology on Wednesday (03/10/2019) and performed an EEG; no changes in medications - c/w Seizure precautions - c/w Valproic acid and Carbamazepine DVT prophylaxis - c/w Heparin Code status: - Discussed with Neel Barajas; currently is Full Code Disposition: - Will be working with physical therapy today VS,Sarina, I+O VS, Sarina I+O Laboratory Tests 03/14/19 06:21 Red Blood Count 3.83 L, Mean Corpuscular Volume 96.1 H, Mean Corpuscular Hemoglobin 31.3, Mean Corpuscular Hemoglobin Concent 32.6, Red Cell Distribution Width 13.5, Neutrophils (%) (Auto) 70.4 H, Lymphocytes (%) (Auto) 17.6 L, Monocytes (%) (Auto) 9.6 H, Eosinophils (%) (Auto) 1.4, Basophils (%) (Auto) 0.6, Neutrophils # (Auto) 6.0, Lymphocytes # (Auto) 1.5, Monocytes # (Auto) 0.8, Eosinophils # (Auto) 0.1, Basophils # (Auto) 0.1, Calcium Level 8.1 L Vital Signs Date Time Temp Pulse Resp B/P (MAP) Pulse Ox O2 Delivery O2 Flow Rate FiO2 03/14/19 10:34 78 157/78 03/14/19 06:00 98.1 18 93 03/12/19 15:15 Nasal Cannula 2.0 I&O- Last 24 Hours up to 6 AM 03/14/19 06:00 Intake Total 640 ml Output Total 1550 ml Balance -910 ml SHAHZAD BLAKE MD Mar 14, 2019 11:48
[2019-03-14] MEDS: cefTRIAXone SOD 1 GM in D5W MINI-BAG PLUS 50 ML IV SCH (12:43)
[2019-03-14 14:00] VITALS: BP 170/84
[2019-03-14] MEDS: AZITHROMYCIN INJ 500 MG, VIAL MATE ADAPTER 1 EACH in D5W 250 ML IV SCH (15:23)
[2019-03-14 22:00] VITALS: BP 147/89
[2019-03-15] MEDS: LEVOTHYROXINE 50MCG TABLET (0.05MG) PO SCH (05:44)
[2019-03-15] MEDS: HEPARIN SOD (PORCINE) 5000 UNITS/ML VIAL SQ SCH ×3 (05:44→21:12)
[2019-03-15 06:00] VITALS: BP 139/80
[2019-03-15 08:30] LABS: BASO # 0.1 10^3/uL (0.0-0.2); BASO % 0.7 % (0.0-1.0); EOS # 0.4 10^3/uL (0.0-0.50); EOS % 5.1 % (0.0-3.0); HEMATOCRIT 37.5 % (42.0-52.0); HEMOGLOBIN 12.3 g/dl (13.5-17.5); LYMPH # 1.4 10^3/uL (1.5-4.5); LYMPH % 19.5 % (24.0-44.0); MEAN CORPUSCULAR HEMOGLOBIN 31.5 pg (27.0-33.0); MEAN CORPUSCULAR HGB CONC 32.8 g/dl (32.0-36.5); MEAN CORPUSCULAR VOLUME 96.2 fl (80.0-96.0); MONO # 0.7 10^3/uL (0.0-0.8); NEUTROPHILS # 4.5 10^3/uL (1.8-7.7); NEUTROPHILS % 63.3 % (36.0-66.0); PLATELET COUNT, AUTOMATED 166 10^3/uL (150-450)
[2019-03-15 08:46] LABS: BLOOD UREA NITROGEN 23 MG/DL (7-18); CALCIUM LEVEL 8.3 MG/DL (8.8-10.2); CARBON DIOXIDE LEVEL 26 MEQ/L (21-32); CHLORIDE LEVEL 106 MEQ/L (98-107); CREATININE FOR GFR 0.84 MG/DL (0.70-1.30); GLOMERULAR FILTRATION RATE > 60.0 (>42); GLUCOSE, FASTING 90 MG/DL (70-100); MAGNESIUM LEVEL 1.8 MG/DL (1.8-2.4); SODIUM LEVEL 139 MEQ/L (136-145)
[2019-03-15] MEDS: carBAMazepine 200 MG TAB PO SCH ×2 (09:33→21:11)
[2019-03-15] MEDS: ASPIRIN 81 MG ENTERIC TAB PO SCH (09:34)
[2019-03-15] MEDS: CYANOCOBALAMIN 500 MCG TAB PO SCH (09:34)
[2019-03-15] MEDS: FERROUS SULFATE 325MG TAB PO SCH (09:34)
[2019-03-15] MEDS: VITAMIN D 1,000 INTERNATIONAL UNITS TABLET PO SCH (09:34)
[2019-03-15] MEDS: DIVALPROEX 250MG *ER* TAB PO SCH ×2 (09:34→21:11)
[2019-03-15] MEDS: METOPROLOL SUCC (TopROL XL) 50MG **XL** TAB PO SCH (09:34)
--- NOTE | 2019-03-15 12:14 | IPNPDOC ---
Text Note Date of Service The patient was seen on 03/15/19. NOTE Subjective: Patient is a 78-year-old male with a PMHx of HTN, Seizure disorder, Dementia, Hx of UTI (Klebsiella), GERD who presented to the emergency room after his found nonresponsive at home. Family had noted that he had been experiencing a fever. EMS was called and patient was transferred to [facility] for further evaluation. Patient was seen and examined at the bedside. Currently, patient denies a problems overnight. He be working with physical therapy as any urinary discomfort. Denies constipation or diarrhea. Has a stretching nausea, vomiting or abdominal pain. Denies chest pain or difficulty breathing. Objective: Vitals (See below) General: Lying in bed, no acute distress, comfortable, Awake / Alert HEENT: NC, AT CVS: RRR, +S1S2 Lungs: Appears to have fair air entry bilaterally without evidence of rhonchi, wheezing or rales Abdomen: Abdomen remains soft without evidence of distention or tenderness Extremities: There is no evidence of lower extremity edema, - Calf tenderness Assessment and plan: s/p Acute metabolic encephalopathy - likely 2/2 infection - Currently, patient appears to be at his baseline level of function - Not appear to have any focal neurologic deficits - s/p Leukocytosis; no significant electrolyte abnormalities - CT Head 03/12: 1. Small vessel ischemic disease. 2. Moderate volume loss. - c/w Antibiotics and IV fluids (See below) Infection - likely 2/2 Urinary tract infection and Possibly 2/2 Community acquired pneumonia - Discussed with nephNeel he; reported that patient has been experiencing deterioration in mental status over the last couple of days, reports that this usually occurs when he has a urinary tract infection - Was reported to have a fever at home - UA consistent with infection - s/p Leukocytosis; s/p Lactic acidosis - Blood cultures 03/12: Negative at 72 hours; Urine culture 03/12: Staphylococcus Warneri - CXR 03/12: No acute disease. - CT abd/pelv 03/12: 1. There is bilateral stranding in the perinephric fat. This may represent inflammatory change or scar. There is mild dilatation of the renal collecting systems and proximal and mid ureters. 2. Right lower lobe atelectasis or infiltrate. 3. The patient is status post repair of a left inguinal hernia. A small amount of fat and scar tissue are present at the hernia site. - c/w IV fluid hydration; Ceftriaxone and Azithromycin (Day #4) - Patient continues to have clinical improvement; will complete 5 days of antibiotic therapy s/p Acute kidney injury - possibly 2/2 pre-renal etiology, - Cr baseline of ~1.0; Cr on admission of 2.63 - Creatinine has returned to baseline - s/p IV fluid hydration HTN - BP better controlled - c/w Metoprolol Hypothyroidism - TSH within normal limits - c/w Levothyroxine Seizure disorder - Last seizure was reported at >2 years ago - Valproic acid and Carbamazepine level noted - Had follow up with Neurology on Wednesday (03/10/2019) and performed an EEG; no changes in medications - c/w Seizure precautions - c/w Valproic acid and Carbamazepine DVT prophylaxis - c/w Heparin Code status: - Discussed with Neel Barajas; currently is Full Code Disposition: - Advised patient that he will need to work with physical therapy in order to be safely transition out of the hospital Sarina HICKMAN, I+O VSSarina I+O Laboratory Tests 03/15/19 07:41 Red Blood Count 3.90 L, Mean Corpuscular Volume 96.2 H, Mean Corpuscular Hemoglobin 31.5, Mean Corpuscular Hemoglobin Concent 32.8, Red Cell Distribution Width 13.3, Neutrophils (%) (Auto) 63.3, Lymphocytes (%) (Auto) 19.5 L, Monocytes (%) (Auto) 10.0 H, Eosinophils (%) (Auto) 5.1 H, Basophils (%) (Auto) 0.7, Neutrophils # (Auto) 4.5, Lymphocytes # (Auto) 1.4 L, Monocytes # (Auto) 0.7, Eosinophils # (Auto) 0.4, Basophils # (Auto) 0.1, Calcium Level 8.3 L Vital Signs Date Time Temp Pulse Resp B/P (MAP) Pulse Ox O2 Delivery O2 Flow Rate FiO2 03/15/19 09:34 72 139/80 03/15/19 06:00 99.0 19 95 03/12/19 15:15 Nasal Cannula 2.0 I&O- Last 24 Hours up to 6 AM 03/15/19 06:00 Intake Total 2400 ml Output Total 350 ml Balance 2050 ml SHAHZAD BLAKE MD March 15, 2019 12:14
[2019-03-15] MEDS: cefTRIAXone SOD 1 GM in D5W MINI-BAG PLUS 50 ML IV SCH (13:54)
[2019-03-15] MEDS: AZITHROMYCIN INJ 500 MG, VIAL MATE ADAPTER 1 EACH in D5W 250 ML IV SCH (13:58)
[2019-03-15 14:00] VITALS: BP 142/87
[2019-03-15 22:00] VITALS: BP 137/80
[2019-03-16] MEDS: LEVOTHYROXINE 50MCG TABLET (0.05MG) PO SCH (05:36)
[2019-03-16] MEDS: HEPARIN SOD (PORCINE) 5000 UNITS/ML VIAL SQ SCH ×3 (05:36→21:31)
[2019-03-16 06:00] VITALS: BP 134/78
[2019-03-16 06:39] LABS: HEMATOCRIT 37.9 % (42.0-52.0); HEMOGLOBIN 12.5 g/dl (13.5-17.5); MEAN CORPUSCULAR HEMOGLOBIN 31.6 pg (27.0-33.0); MEAN CORPUSCULAR VOLUME 95.7 fl (80.0-96.0); PLATELET COUNT, AUTOMATED 203 10^3/uL (150-450); RED BLOOD COUNT 3.96 10^6/uL (4.30-6.10); WHITE BLOOD COUNT 6.7 10^3/uL (4.0-10.0)
[2019-03-16 07:06] LABS: ATYPICAL LYMPH 1 % (0-5); BASOPHILS 3 % (0-4); EOSINOPHILS 5 % (0-5); LYMPHOCYTES 25 % (16-52); METAMYELOCYTES 2 % (0-0); MONOCYTES 10 % (0-8); NEUTROPHILS 53 % (35-75)
[2019-03-16 07:07] LABS: BLOOD UREA NITROGEN 25 MG/DL (7-18); CALCIUM LEVEL 8.4 MG/DL (8.8-10.2); CARBON DIOXIDE LEVEL 28 MEQ/L (21-32); CHLORIDE LEVEL 103 MEQ/L (98-107); CREATININE FOR GFR 0.95 MG/DL (0.70-1.30); GLOMERULAR FILTRATION RATE > 60.0 (>42); GLUCOSE, FASTING 84 MG/DL (70-100); MAGNESIUM LEVEL 1.8 MG/DL (1.8-2.4); PLATELET ESTIMATE NORMAL (NORMAL); POTASSIUM SERUM 3.7 MEQ/L (3.5-5.1); SODIUM LEVEL 138 MEQ/L (136-145)
[2019-03-16] MEDS ORDERED: AZITHROMYCIN 250 MG TAB PO SCH (09:00)
[2019-03-16] MEDS: DIVALPROEX 250MG *ER* TAB PO SCH ×2 (10:20→21:32)
[2019-03-16] MEDS: FERROUS SULFATE 325MG TAB PO SCH (10:20)
[2019-03-16] MEDS: CYANOCOBALAMIN 500 MCG TAB PO SCH (10:21)
[2019-03-16] MEDS: VITAMIN D 1,000 INTERNATIONAL UNITS TABLET PO SCH (10:21)
[2019-03-16] MEDS: carBAMazepine 200 MG TAB PO SCH ×2 (10:22→21:32)
[2019-03-16] MEDS: ASPIRIN 81 MG ENTERIC TAB PO SCH (10:22)
[2019-03-16] MEDS: METOPROLOL SUCC (TopROL XL) 50MG **XL** TAB PO SCH (10:24)
--- NOTE | 2019-03-16 11:36 | IPNPDOC ---
Text Note Date of Service The patient was seen on 03/16/19. NOTE Subjective: Patient is a 78-year-old male with a PMHx of HTN, Seizure disorder, Dementia, Hx of UTI (Klebsiella), GERD who presented to the emergency room after his found nonresponsive at home. Family had noted that he had been experiencing a fever. EMS was called and patient was transferred to [facility] for further evaluation. Patient was seen and examined at the bedside. Patient is oriented to person, place. He is unsure of the time. Denies any pain. Has been sitting in a chair yesterday, however, moves himself back to the bed. Does not answer very many questions. Objective: Vitals (See below) General: Lying in bed, no acute distress, comfortable, Awake / Alert, Oriented x 2 (not to time) HEENT: NC, AT CVS: RRR, +S1S2 Lungs: Fair b/l, without evidence of rhonchi / rales / wheezing Abdomen: No distention / tenderness and remains soft Extremities: There is no evidence of lower extremity edema, - Calf tenderness Assessment and plan: s/p Acute metabolic encephalopathy - likely 2/2 infection - Currently, patient appears to be at his baseline level of function - Not appear to have any focal neurologic deficits - s/p Leukocytosis; no significant electrolyte abnormalities - CT Head 03/12: 1. Small vessel ischemic disease. 2. Moderate volume loss. - c/w Antibiotics and IV fluids (See below) Infection - likely 2/2 Urinary tract infection and Possibly 2/2 Community acquired pneumonia - Discussed with nephewNeel; reported that patient has been experienci ng deterioration in mental status over the last couple of days, reports that this usually occurs when he has a urinary tract infection - Was reported to have a fever at home - UA consistent with infection - s/p Leukocytosis; s/p Lactic acidosis - Blood cultures 03/12: Negative at 72 hours; Urine culture 03/12: Staphylococcus Warneri - CXR 03/12: No acute disease. - CT abd/pelv 03/12: 1. There is bilateral stranding in the perinephric fat. This may represent inflammatory change or scar. There is mild dilatation of the renal collecting systems and proximal and mid ureters. 2. Right lower lobe at electasis or infiltrate. 3. The patient is status post repair of a left inguinal hernia. A small amount of fat and scar tissue are present at the hernia site. - c/w IV fluid hydration; Ceftriaxone and Azithromycin (Day #5) - completed course of Abx for UTI; will continue for 2 more days for CAP - Added incentive spirometry and acapella - Add chest PT s/p Acute kidney injury - possibly 2/2 pre-renal etiology, - Cr baseline of ~1.0; Cr on admission of 2.63 - Creatinine has returned to baseline - s/p IV fluid hydration HTN - BP better controlled - c/w Metoprolol Hypothyroidism - TSH within normal limits - c/w Levothyroxine Seizure disorder - Last seizure was reported at >2 years ago - Valproic acid and Carbamazepine level noted - Had follow up with Neurology on Wednesday (03/10/2019) and performed an EEG; no changes in medications - c/w Seizure precautions - c/w Valproic acid and Carbamazepine DVT prophylaxis - c/w Heparin Code status: - Discussed with Neel Barajas; currently is Full Code Disposition: - c/w PT - Added Mucinex / Chest PT / Acapella & Incentive Spirometry VS,Fishbone, I+O VS, Fishbone, I+O Laboratory Tests 03/16/19 06:16 Red Blood Count 3.96 L, Mean Corpuscular Volume 95.7, Mean Corpuscular Hemoglobin 31.6, Mean Corpuscular Hemoglobin Concent 33.0, Red Cell Distribution Width 12.9, Calcium Level 8.4 L Vital Signs Date Time Temp Pulse Resp B/P (MAP) Pulse Ox O2 Delivery O2 Flow Rate FiO2 03/16/19 10:24 78 134/78 03/16/19 06:00 97.6 20 98 03/12/19 15:15 Nasal Cannula 2.0 I&O- Last 24 Hours up to 6 AM 03/16/19 05:59 Intake Total 660 ml Balance 660 ml SHAHZAD BLAKE MD March 16, 2019 11:36
[2019-03-16] MEDS: cefTRIAXone SOD 1 GM in D5W MINI-BAG PLUS 50 ML IV SCH ×2 (12:00→13:39)
[2019-03-16] MEDS: guaiFENesin ER 600 MG TAB PO SCH ×2 (13:40→21:32)
[2019-03-16 14:00] VITALS: BP 178/80
[2019-03-16] MEDS: AZITHROMYCIN INJ 500 MG, VIAL MATE ADAPTER 1 EACH in D5W 250 ML IV SCH (14:28)
[2019-03-16] MEDS: CEFDINIR 300 MG CAP (OMNICEF) PO SCH (21:32)
[2019-03-16 22:00] VITALS: BP 173/74
[2019-03-17 02:15] VITALS: BP 145/79
[2019-03-17] MEDS: HEPARIN SOD (PORCINE) 5000 UNITS/ML VIAL SQ SCH ×3 (05:00→20:14)
[2019-03-17] MEDS: LEVOTHYROXINE 50MCG TABLET (0.05MG) PO SCH (05:00)
[2019-03-17 05:48] LABS: HEMATOCRIT 40.2 % (42.0-52.0); HEMOGLOBIN 13.4 g/dl (13.5-17.5); MEAN CORPUSCULAR HGB CONC 33.3 g/dl (32.0-36.5); MEAN CORPUSCULAR VOLUME 93.1 fl (80.0-96.0); PLATELET COUNT, AUTOMATED 220 10^3/uL (150-450); RED BLOOD COUNT 4.32 10^6/uL (4.30-6.10); WHITE BLOOD COUNT 6.2 10^3/uL (4.0-10.0)
[2019-03-17 06:00] VITALS: BP 154/79
[2019-03-17 06:11] LABS: BLOOD UREA NITROGEN 23 MG/DL (7-18); CALCIUM LEVEL 8.2 MG/DL (8.8-10.2); CARBON DIOXIDE LEVEL 26 MEQ/L (21-32); CHLORIDE LEVEL 102 MEQ/L (98-107); CREATININE FOR GFR 0.86 MG/DL (0.70-1.30); GLOMERULAR FILTRATION RATE > 60.0 (>42); GLUCOSE, FASTING 83 MG/DL (70-100); MAGNESIUM LEVEL 1.8 MG/DL (1.8-2.4); POTASSIUM SERUM 3.7 MEQ/L (3.5-5.1); SODIUM LEVEL 134 MEQ/L (136-145)
[2019-03-17 06:17] LABS: ATYPICAL LYMPH 2 % (0-5); EOSINOPHILS 7 % (0-5); LYMPHOCYTES 25 % (16-52); METAMYELOCYTES 5 % (0-0); MONOCYTES 5 % (0-8); NEUTROPHILS 56 % (35-75)
[2019-03-17 06:18] LABS: PLATELET ESTIMATE NORMAL (NORMAL)
[2019-03-17 08:00] VITALS: BP 144/76
[2019-03-17] MEDS: DOXYCYCLINE HYCLATE 100 MG TAB PO SCH ×2 (08:41→20:14)
[2019-03-17] MEDS: DIVALPROEX 250MG *ER* TAB PO SCH ×2 (08:41→20:14)
[2019-03-17] MEDS: VITAMIN D 1,000 INTERNATIONAL UNITS TABLET PO SCH (08:41)
[2019-03-17] MEDS: METOPROLOL SUCC (TopROL XL) 50MG **XL** TAB PO SCH (08:42)
[2019-03-17] MEDS: guaiFENesin ER 600 MG TAB PO SCH ×2 (08:43→20:14)
[2019-03-17] MEDS: CYANOCOBALAMIN 500 MCG TAB PO SCH (08:43)
[2019-03-17] MEDS: ASPIRIN 81 MG ENTERIC TAB PO SCH (08:43)
[2019-03-17] MEDS: CEFDINIR 300 MG CAP (OMNICEF) PO SCH ×2 (08:43→20:14)
[2019-03-17] MEDS: FERROUS SULFATE 325MG TAB PO SCH (08:43)
[2019-03-17] MEDS: carBAMazepine 200 MG TAB PO SCH ×2 (08:44→20:14)
--- NOTE | 2019-03-17 12:09 | IPNPDOC ---
Text Note Date of Service The patient was seen on 03/17/19. NOTE Subjective: Patient was seen and examined at the bedside. Patient is oriented to person, place. He is unsure of the time. Denies any pain. Says has not slept at night. However he is not a reliable historian due to his dementia. Does not answer very many questions. no fever or chills, no chest pain or SOB, no cough noted. No nausea or vomting, no diarrhea. Does not have any appetite. Objective: Vitals (See below) General: Lying in bed, no acute distress, comfortable, Awake / Alert, Oriented x 2 (not to time) HEENT: NC, AT CVS: RRR, +S1S2 Lungs: Fair b/l, without evidence of rhonchi / rales / wheezing Abdomen: No distention / tenderness and remains soft Extremities: There is no evidence of lower extremity edema, - Calf tenderness Labs and Radiology : reviewed Assessment and plan: Patient is a 78-year-old male with a PMHx of HTN, Seizure disorder, Dementia, Hx of UTI (Klebsiella), GERD who presented to the emergency room after his found non responsive at home. Family had noted that he had been experiencing a fever. EMS was called and patient was transferred to [facility] for further evaluation. He was found to have UTi and Metabolic encephalopathy from the infection on the back ground of dementia and admitted. s/p Acute metabolic encephalopathy - 2/2 infection Now improved Currently, patient appears to be at his baseline level of function UTI UC staph warneri will give doxycycline. Community acquired pneumonia s/p Leukocytosis; s/p Lactic acidosis Blood cultures 03/12: Negative at 72 hours; Urine culture 03/12: Staphylococcus Warneri CT abd/pelv 03/12: 1. There is bilateral stranding in the perinephric fat. This may represent inflammatory change or scar. There is mild dilatation of the renal collecting systems and proximal and mid ureters. 2. Right lower lobe atelectasis or infiltrate. 3. The patient is status post repair of a left inguinal hernia. A small amount of fat and scar tissue are present at the her itzel site. recieved 5 days of ceftriaxone and azithromycin. Continue cefdinir and doxycycline. incentive spirometry and acapella Chest PT s/p Acute kidney injury 2/2 pre-renal etiology, Cr baseline of ~1.0; Cr on admission of 2.63 Creatinine has returned to baseline s/p IV fluid hydration HTN c/w Metoprolol Hypothyroidism c/w Levothyroxine Seizure disorder - Last seizure was reported at >2 years ago - Valproic acid and Carbamazepine level noted - Had follow up with Neurology on Wednesday (03/10/2019) and performed an EEG; no changes in medications - c/w Seizure precautions - c/w Valproic acid and Carbamazepine DVT prophylaxis - c/w Heparin Code status: - Discussed with Neel Barajas; currently is Full Code Disposition: - c/w PT - Added Mucinex / Chest PT / Acapella & Incentive Spirometry A-FIB/CHADSVASC A-FIB History Current/History of A-Fib/PAF?: No VS,Fishbone, I+O VS, Fishbone, I+O Laboratory Tests 03/17/19 05:21 Red Blood Count 4.32, Mean Corpuscular Volume 93.1, Mean Corpuscular Hemoglobin 31.0, Mean Corpuscular Hemoglobin Concent 33.3, Red Cell Distribution Width 12.6, Calcium Level 8.2 L Vital Signs Date Time Temp Pulse Resp B/P (MAP) Pulse Ox O2 Delivery O2 Flow Rate FiO2 03/17/19 08:42 75 144/76 03/17/19 08:00 97.5 18 94 03/12/19 15:15 Nasal Cannula 2.0 I&O- Last 24 Hours up to 6 AM 03/17/19 06:00 Intake Total 540 ml Output Total 150 ml Balance 390 ml RENA SUAZO MD March 17, 2019 12:09
[2019-03-17 14:15] VITALS: BP 145/79
[2019-03-17 22:00] VITALS: BP 136/76
[2019-03-18] MEDS: LEVOTHYROXINE 50MCG TABLET (0.05MG) PO SCH (05:56)
[2019-03-18] MEDS: HEPARIN SOD (PORCINE) 5000 UNITS/ML VIAL SQ SCH ×3 (05:57→21:12)
[2019-03-18 06:00] VITALS: BP 147/76
[2019-03-18 06:46] LABS: HEMATOCRIT 42.7 % (42.0-52.0); HEMOGLOBIN 14.1 g/dl (13.5-17.5); MEAN CORPUSCULAR HEMOGLOBIN 31.4 pg (27.0-33.0); MEAN CORPUSCULAR VOLUME 95.1 fl (80.0-96.0); PLATELET COUNT, AUTOMATED 253 10^3/uL (150-450); RED BLOOD COUNT 4.49 10^6/uL (4.30-6.10); WHITE BLOOD COUNT 7.9 10^3/uL (4.0-10.0)
[2019-03-18 07:08] LABS: BLOOD UREA NITROGEN 24 MG/DL (7-18); CALCIUM LEVEL 8.5 MG/DL (8.8-10.2); CARBON DIOXIDE LEVEL 26 MEQ/L (21-32); CHLORIDE LEVEL 102 MEQ/L (98-107); CREATININE FOR GFR 0.91 MG/DL (0.70-1.30); GLOMERULAR FILTRATION RATE > 60.0 (>42); GLUCOSE, FASTING 77 MG/DL (70-100); MAGNESIUM LEVEL 1.7 MG/DL (1.8-2.4); POTASSIUM SERUM 3.5 MEQ/L (3.5-5.1); SODIUM LEVEL 136 MEQ/L (136-145)
[2019-03-18 08:07] LABS: ANISOCYTOSIS 1+; ATYPICAL LYMPH 1 % (0-5); BASOPHILS 1 % (0-4); EOSINOPHILS 2 % (0-5); LYMPHOCYTES 39 % (16-52); MONOCYTES 9 % (0-8); MYELOCYTES 3 % (0-0); NEUTROPHILS 43 % (35-75); PLATELET ESTIMATE NORMAL (NORMAL)
[2019-03-18] MEDS: DIVALPROEX 250MG *ER* TAB PO SCH ×2 (08:47→21:12)
[2019-03-18] MEDS: DOXYCYCLINE HYCLATE 100 MG TAB PO SCH ×2 (08:48→21:13)
[2019-03-18] MEDS: CYANOCOBALAMIN 500 MCG TAB PO SCH (08:48)
[2019-03-18] MEDS: guaiFENesin ER 600 MG TAB PO SCH ×2 (08:48→21:12)
[2019-03-18] MEDS: ASPIRIN 81 MG ENTERIC TAB PO SCH (08:48)
[2019-03-18] MEDS: FERROUS SULFATE 325MG TAB PO SCH (08:48)
[2019-03-18] MEDS: CEFDINIR 300 MG CAP (OMNICEF) PO SCH ×2 (08:49→21:12)
[2019-03-18] MEDS: carBAMazepine 200 MG TAB PO SCH ×2 (08:49→21:13)
[2019-03-18] MEDS: METOPROLOL SUCC (TopROL XL) 50MG **XL** TAB PO SCH (08:50)
[2019-03-18] MEDS: VITAMIN D 1,000 INTERNATIONAL UNITS TABLET PO SCH (08:50)
[2019-03-18 09:00] VITALS: BP 160/82
[2019-03-18 14:00] VITALS: BP 134/92
--- NOTE | 2019-03-18 14:59 | IPNPDOC ---
Text Note Date of Service The patient was seen on 03/18/19. NOTE Subjective: Patient was seen and examined at the bedside. Patient is oriented to person, place. He is unsure of the time. Denies any pain. However he is not a reliable historian due to his dementia. Does not answer very many questions. no fever or chills, no chest pain or SOB, no cough noted. No nausea or vomiting, no diarrhea. Does not have any appetite. Has been refusing to work with PT. wants to sleep all day does not want to get out of bed. Spoke with nephew Neel yesterday says he walks with a walker and cane at home and is able to walk out by himself to get into the transport to go to [facility]. He often has to be told what to do as if he is asked he would often say he does not want to do it. He is going to come today again. If Patient refuses to work with PT today will try when nephew is here. Objective: Vitals (See below) General: Lying in bed, no acute distress, comfortable, Awake / Alert, Oriented x 2 (not to time) HEENT: NC, AT, moist mucous membranes anicteric eyes. CVS: RRR, +S1S2, no rub , murmur or gallop. Lungs: Fair b/l, without evidence of rhonchi / rales / wheezing Abdomen: No distention / tenderness and remains soft Extremities: There is no evidence of lower extremity edema, - Calf tenderness Labs and Radiology : reviewed Assessment and plan: Patient is a 78-year-old male with a PMHx of HTN, Seizure disorder, Dementia, Hx of UTI (Klebsiella), GERD who presented to the emergency room after his found non responsive at home. Family had noted that he had been experiencing a fever. EMS was called and patient was transferred to [facility] for further evaluation. He was found to have UTi and Metabolic encephalopathy from the infection on the back ground of dementia and admitted. s/p Acute metabolic encephalopathy - 2/2 infection Now improved Currently, patient appears to be at his baseline level of function UTI UC staph warneri will give doxycycline. Community acquired pneumonia s/p Leukocytosis; s/p Lactic acidosis Blood cultures 03/12: Negative at 72 hours; Urine culture 03/12: Staphylococcus Warneri CT abd/pelv 03/12: 1. There is bilateral stranding in the perinephric fat. This may represent inflammatory change or scar. There is mild dilatation of the renal collecting systems and proximal and mid ureters. 2. Right lower lobe atelectasis or infiltrate. 3. The patient is status post repair of a left inguinal hernia. A small amount of fat and scar tissue are present at the hernia site. received 5 days of ceftriaxone and azithromycin. Continue cefdinir and doxycycline. incentive spirometry and acapella Chest PT s/p Acute kidney injury 2/2 pre-renal etiology, Cr baseline of ~1.0; Cr on admission of 2.63 Creatinine has returned to baseline s/p IV fluid hydration HTN c/w Metoprolol Hypothyroidism c/w Levothyroxine Seizure disorder Last seizure was reported at >2 years ago Valproic acid and Carbamazepine level noted Had follow up with Neurology on Wednesday (03/10/2019) and performed an EEG; no changes in medications c/w Seizure precautions c/w Valproic acid and Carbamazepine DVT prophylaxis c/w Heparin Code status: - Discussed with Neel Barajas; currently is Full Code Disposition: c/w PT VS,Fishbone, I+O VS, Fishbone, I+O Vital Signs Date Time Temp Pulse Resp B/P (MAP) Pulse Ox O2 Delivery O2 Flow Rate FiO2 03/18/19 06:00 97.7 82 18 147/76 (99) 95 03/12/19 15:15 Nasal Cannula 2.0 I&O- Last 24 Hours up to 6 AM 03/18/19 06:00 Intake Total 270 ml Output Total 425 ml Balance -155 ml RENA SUAZO MD March 18, 2019 06:50
[2019-03-18 22:00] VITALS: BP 141/86
[2019-03-19] MEDS: HEPARIN SOD (PORCINE) 5000 UNITS/ML VIAL SQ SCH ×3 (05:43→21:52)
[2019-03-19] MEDS: LEVOTHYROXINE 50MCG TABLET (0.05MG) PO SCH (05:43)
[2019-03-19 06:00] VITALS: BP 160/86
[2019-03-19 06:35] LABS: HEMATOCRIT 41.6 % (42.0-52.0); HEMOGLOBIN 13.6 g/dl (13.5-17.5); MEAN CORPUSCULAR HEMOGLOBIN 30.8 pg (27.0-33.0); MEAN CORPUSCULAR HGB CONC 32.7 g/dl (32.0-36.5); MEAN CORPUSCULAR VOLUME 94.3 fl (80.0-96.0); PLATELET COUNT, AUTOMATED 272 10^3/uL (150-450); RED BLOOD COUNT 4.41 10^6/uL (4.30-6.10); WHITE BLOOD COUNT 10.5 10^3/uL (4.0-10.0)
[2019-03-19 06:43] LABS: BLOOD UREA NITROGEN 29 MG/DL (7-18); CALCIUM LEVEL 8.8 MG/DL (8.8-10.2); CARBON DIOXIDE LEVEL 29 MEQ/L (21-32); CHLORIDE LEVEL 104 MEQ/L (98-107); GLOMERULAR FILTRATION RATE > 60.0 (>42); GLUCOSE, FASTING 89 MG/DL (70-100); MAGNESIUM LEVEL 1.9 MG/DL (1.8-2.4); POTASSIUM SERUM 3.8 MEQ/L (3.5-5.1); SODIUM LEVEL 138 MEQ/L (136-145)
[2019-03-19 07:26] LABS: ATYPICAL LYMPH 1 % (0-5); LYMPHOCYTES 18 % (16-52); METAMYELOCYTES 3 % (0-0); MONOCYTES 12 % (0-8); MYELOCYTES 1 % (0-0); NEUTROPHILS 64 % (35-75)
[2019-03-19 07:27] LABS: ANISOCYTOSIS 1+; PLATELET ESTIMATE NORMAL (NORMAL)
[2019-03-19] MEDS: CYANOCOBALAMIN 500 MCG TAB PO SCH (09:10)
[2019-03-19] MEDS: METOPROLOL SUCC (TopROL XL) 50MG **XL** TAB PO SCH (09:10)
[2019-03-19] MEDS: DOXYCYCLINE HYCLATE 100 MG TAB PO SCH ×2 (09:10→20:16)
[2019-03-19] MEDS: CEFDINIR 300 MG CAP (OMNICEF) PO SCH (09:11)
[2019-03-19] MEDS: guaiFENesin ER 600 MG TAB PO SCH ×2 (09:11→20:15)
[2019-03-19] MEDS: VITAMIN D 1,000 INTERNATIONAL UNITS TABLET PO SCH (09:11)
[2019-03-19] MEDS: carBAMazepine 200 MG TAB PO SCH ×2 (09:11→20:15)
[2019-03-19] MEDS: ASPIRIN 81 MG ENTERIC TAB PO SCH (09:11)
[2019-03-19] MEDS: FERROUS SULFATE 325MG TAB PO SCH (09:11)
[2019-03-19] MEDS: DIVALPROEX 250MG *ER* TAB PO SCH ×2 (09:11→20:15)
--- NOTE | 2019-03-19 09:34 | IPNPDOC ---
Text Note Date of Service The patient was seen on 03/19/19. NOTE Subjective: Patient was seen and examined at the bedside. He is noted to be sl eeping most of the day. I woke him up this morning. Does not want to get up, did not answer any questions just nodded or shook his head to questions. Has not been getting out of bed at all. Has been refusing to do anything with PT. Patient getting more deconditioned every day and i am concerned that he may not be able to go back home at this point with the amount of muscle strength he seems to have lost. Discussed with nurse that he needs to be mobilized at least out of bed to chair today. Pateint does not offer any specific complaints today Objective: Vitals (See below) General: Lying in bed, no acute distress, comfortable, Awake / Alert, Oriented x 2 (not to time) HEENT: NC, AT, moist mucous membranes anicteric eyes. Pupils are unequal. Left 4 m oval irregular, pupil is white possibly advanced cataract, No reaction to light. right 2 mm , with normal reaction to light. CVS: RRR, +S1S2, no rub , murmur or gallop. Lungs: Fair b/l, without evidence of rhonchi / rales / wheezing Abdomen: No distention / tenderness and remains soft Extremities: There is no evidence of lower extremity edema, - Calf tenderness Labs and Radiology : reviewed Assessment and plan: Patient is a 78-year-old male with a PMHx of HTN, Seizure disorder, Dementia, Hx of UTI (Klebsiella), GERD who presented to the emergency room after his found non responsive at home. Family had noted that he had been experiencing a fever. EMS was called and patient was transferred to [facility] for further evaluation. He was found to have UTi and Metabolic encephalopathy from the infection on the back ground of dementia and admitted. s/p Acute metabolic encephalopathy - 2/2 infection Now improved Currently, patient appears to be at his baseline level of function UTI UC staph warneri doxycycline. Community acquired pneumonia s/p Leukocytosis; s/p Lactic acidosis received 5 days of ceftriaxone and azithromycin. Continue doxycycline. incentive spirometry and acapella Chest PT s/p Acute kidney injury 2/2 pre-renal etiology, Cr baseline of ~1.0; Cr on admission of 2.63 Creatinine has returned to baseline s/p IV fluid hydration HTN c/w Metoprolol Hypothyroidism c/w Levothyroxine Seizure disorder Last seizure was reported at >2 years ago Valproic acid and Carbamazepine level noted Had follow up with Neurology on Wednesday (03/10/2019) and performed an EEG; no changes in medications c/w Seizure precautions c/w Valproic acid and Carbamazepine DVT prophylaxis c/w Heparin Code status: - Discussed with Neel Barajas; currently is Full Code Disposition: Home vs STR. c/w PT VS,Sarina, I+O VS, Sarina, I+O Laboratory Tests 03/19/19 06:02 Red Blood Count 4.41, Mean Corpuscular Volume 94.3, Mean Corpuscular Hemoglobin 30.8, Mean Corpuscular Hemoglobin Concent 32.7, Red Cell Distribution Width 13.1, Calcium Level 8.8 Vital Signs Date Time Temp Pulse Resp B/P (MAP) Pulse Ox O2 Delivery O2 Flow Rate FiO2 03/19/19 09:10 86 138/96 03/19/19 06:00 98.4 20 92 I&O- Last 24 Hours up to 6 AM 03/19/19 06:00 Intake Total 1620 ml Output Total 0 ml Balance 1620 ml RENA SUAZO MD March 19, 2019 09:34
[2019-03-19 14:00] VITALS: BP 127/75
[2019-03-19 22:00] VITALS: BP 138/89
[2019-03-20] MEDS: LEVOTHYROXINE 50MCG TABLET (0.05MG) PO SCH (05:32)
[2019-03-20] MEDS: HEPARIN SOD (PORCINE) 5000 UNITS/ML VIAL SQ SCH ×3 (05:33→21:16)
[2019-03-20 06:00] VITALS: BP 140/76
--- NOTE | 2019-03-20 09:08 | IPNPDOC ---
Text Note Date of Service The patient was seen on 03/20/19. NOTE Subjective: Patient was seen and examined at the bedside. He is noted to be sleeping most of the day. I woke him up this morning. Does not want to get up, did not answer any questions just nodded or shook his head to questions. Was out of bed to chair yesterday with 2 person assist in the presence of nephew Neel. Has been refusing to do anything with PT. Patient getting more deconditioned every day and i am concerned that he may not be able to go back home at this point with the amount of muscle strength he seems to have lost. Patient does not offer any specific complaints today Objective: Vitals (See below) General: Lying in bed, no acute distress, comfortable, Awake / Alert, Oriented x 2 (not to time) HEENT: NC, AT, moist mucous membranes anicteric eyes. Pupils are unequal. Left 4 m oval irregular, pupil is white possibly advanced cataract, No reaction to light. right 2 mm , with normal reaction to light. CVS: RRR, +S1S2, no rub , murmur or gallop. Lungs: Fair b/l, without evidence of rhonchi / rales / wheezing Abdomen: No distention / tenderness and remains soft Extremities: There is no evidence of lower extremity edema, - Calf tenderness Labs and Radiology : reviewed Assessment and plan: Patient is a 78-year-old male with a PMHx of HTN, Seizure disorder, Dementia, Hx of UTI (Klebsiella), GERD who presented to the emergency room after his found non responsive at home. Family had noted that he had been experiencing a fever. EMS was called and patient was transferred to [facility] for further evaluation. He was found to have UTi and Metabolic encephalopathy from the infection on the back ground of dementia and admitted. Muscle deconditioning and gait instability Patient has dementia. patient refusing to working with PT At baseline he is ambulatory with walker and cane goes to the bathroom by himself, goes out of the house by himself to get on the transport to go to day hab However at present he is needing 2 assist to get out of bed to chair he may need STR. s/p Acute metabolic encephalopathy - 2/2 infection Now improved Currently, patient appears to be at his baseline level of function UTI UC staph warneri doxycycline. Community acquired pneumonia s/p Leukocytosis; s/p Lactic acidosis received 5 days of ceftriaxone and azithromycin. Continue doxycycline. incentive spirometry and acapella Chest PT s/p Acute kidney injury 2/2 pre-renal etiology, Cr baseline of ~1.0; Cr on admission of 2.63 Creatinine has returned to baseline s/p IV fluid hydration HTN c/w Metoprolol Hypothyroidism c/w Levothyroxine Seizure disorder Last seizure was reported at >2 years ago Valproic acid and Carbamazepine level noted Had follow up with Neurology on Wednesday (03/10/2019) and performed an EEG; no changes in medications c/w Seizure precautions c/w Valproic acid and Carbamazepine DVT prophylaxis c/w Heparin Code status: - Discussed with Neel Barajas; currently is Full Code Disposition: Home vs STR. c/w PT A-FIB/CHADSVASC A-FIB History Current/History of A-Fib/PAF?: No VS,Fishbone, I+O VS, Fishbone, I+O Vital Signs Date Time Temp Pulse Resp B/P (MAP) Pulse Ox O2 Delivery O2 Flow Rate FiO2 03/20/19 06:00 97.8 82 20 140/76 (97) 96 I&O- Last 24 Hours up to 6 AM 03/20/19 05:59 Intake Total 660 ml Output Total 0 ml Balance 660 ml RENA SUAZO MD March 20, 2019 09:08
[2019-03-20] MEDS: DOXYCYCLINE HYCLATE 100 MG TAB PO SCH ×2 (09:25→21:17)
[2019-03-20] MEDS: VITAMIN D 1,000 INTERNATIONAL UNITS TABLET PO SCH (09:25)
[2019-03-20] MEDS: guaiFENesin ER 600 MG TAB PO SCH ×2 (09:25→21:17)
[2019-03-20] MEDS: FERROUS SULFATE 325MG TAB PO SCH (09:25)
[2019-03-20] MEDS: ASPIRIN 81 MG ENTERIC TAB PO SCH (09:25)
[2019-03-20] MEDS: CYANOCOBALAMIN 500 MCG TAB PO SCH (09:26)
[2019-03-20] MEDS: carBAMazepine 200 MG TAB PO SCH ×2 (09:26→21:17)
[2019-03-20] MEDS: METOPROLOL SUCC (TopROL XL) 50MG **XL** TAB PO SCH (09:26)
[2019-03-20] MEDS: DIVALPROEX 250MG *ER* TAB PO SCH ×2 (09:26→21:17)
[2019-03-20 14:00] VITALS: BP 129/76
[2019-03-20 22:00] VITALS: BP 135/80
[2019-03-21] MEDS: HEPARIN SOD (PORCINE) 5000 UNITS/ML VIAL SQ SCH (05:36)
[2019-03-21] MEDS: LEVOTHYROXINE 50MCG TABLET (0.05MG) PO SCH (05:36)
[2019-03-21 06:00] VITALS: BP 136/80
[2019-03-21 08:25] VITALS: BP 136/80
[2019-03-21] MEDS: DIVALPROEX 250MG *ER* TAB PO SCH (08:25)
[2019-03-21] MEDS: FERROUS SULFATE 325MG TAB PO SCH (08:25)
[2019-03-21] MEDS: METOPROLOL SUCC (TopROL XL) 50MG **XL** TAB PO SCH (08:25)
[2019-03-21] MEDS: CYANOCOBALAMIN 500 MCG TAB PO SCH (08:25)
[2019-03-21] MEDS: VITAMIN D 1,000 INTERNATIONAL UNITS TABLET PO SCH (08:25)
[2019-03-21] MEDS: ASPIRIN 81 MG ENTERIC TAB PO SCH (08:26)
[2019-03-21] MEDS: guaiFENesin ER 600 MG TAB PO SCH (08:26)
[2019-03-21] MEDS: DOXYCYCLINE HYCLATE 100 MG TAB PO SCH (08:26)
[2019-03-21] MEDS: carBAMazepine 200 MG TAB PO SCH (09:00)
[2019-03-21] MEDS ORDERED: DOXY100T PO (11:28)
[2019-03-21] MEDS ORDERED: MUCI600T31 PO (11:28)
--- NOTE | 2019-03-21 11:35 | DS.PDOC ---
Discharge Summary General Date of Admission Mar 12, 2019 at 13:08 Date of Discharge 03/21/19 Discharge Summary PROCEDURES PERFORMED DURING STAY: [None]. DISCHARGE DIAGNOSES: Metabolic encephalopathy UTI Pneumonia Dementia JESI Hypothyroid Hypertension Seizure disorder COMPLICATIONS/CHIEF COMPLAINT: Altered Mental Status,Uti. HISTORY OF PRESENT ILLNESS: see history and physical HOSPITAL COURSE: Patient is a 78-year-old male with a PMHx of HTN, Seizure disorder, Dementia, Hx of UTI (Klebsiella), GERD who presented to the emergency room after his found non responsive at home. Family had noted that he had been experiencing a fever. EMS was called and patient was transferred to [facility] for further evaluation. He was found to have UTi and Metabolic encephalopathy from the infection on the back ground of dementia and admitted. Muscle deconditioning and gait instability Patient has dementia. patient refusing to working with PT At baseline he is ambulatory with walker and cane goes to the bathroom by himself, goes out of the house by himself to get on the transport to go to day hab However at present he is needing 2 assist to get out of bed to chair. Though this varies from session to session. AAs per Nursing aids he can walk to the bathroom by himself though often refuses to get out of bed to chair. s/p Acute metabolic encephalopathy - 2/2 infection Now improved Currently, patient appears to be at his baseline level of function UTI UC staph warneri doxycycline. Community acquired pneumonia s/p Leukocytosis; s/p Lactic acidosis received 5 days of ceftriaxone and azithromycin. Continue doxycycline for 2 more days incentive spirometry and acapella s/p Acute kidney injury 2/2 pre-renal etiology, Cr baseline of ~1.0; Cr on admission of 2.63 Creatinine has returned to baseline s/p IV fluid hydration HTN c/w Metoprolol Hypothyroidism c/w Levothyroxine Seizure disorder Last seizure was reported at >2 years ago Valproic acid and Carbamazepine level noted Had follow up with Neurology on Wednesday (03/10/2019) and performed an EEG; no changes in medications c/w Valproic acid and Carbamazepine Code status: Discussed with Neel Barajas; currently is Full Code DISCHARGE MEDICATIONS: Please see below. ALLERGIES: Please see below. PHYSICAL EXAMINATION ON DISCHARGE: VITAL SIGNS: Please see below. General: Lying in bed, no acute distress, comfortable, Awake / Alert, oriented to place and person HEENT: NC, AT, moist mucous membranes anicteric eyes. Pupils are unequal. Left 4 m oval irregular, pupil is white possibly advanced cataract, No reaction to light. right 2 mm , with normal reaction to light. CVS: RRR, +S1S2, no rub , No rub, murmur or gallop. Lungs: Fair b/l, without evidence of rhonchi / rales / wheezing Abdomen: No distention / tenderness and remains soft Extremities: There is no evidence of lower extremity edema LABORATORY DATA: Please see below. ACTIVITY: [As tolerated]. DIET: Pureed DISCHARGE PLAN: [facility] DISPOSITION: STR DISCHARGE INSTRUCTIONS: Follow up with MD in [place] DISCHARGE CONDITION: [Stable]. TIME SPENT ON DISCHARGE: Greater than 30 minutes. Vital Signs/I&Os Vital Signs Date Time Temp Pulse Resp B/P (MAP) Pulse Ox O2 Delivery O2 Flow Rate FiO2 03/21/19 08:25 87 136/80 03/21/19 06:00 97.2 18 97 I&O- Last 24 Hours up to 6 AM 03/21/19 06:00 Intake Total 860 ml Output Total 0 ml Balance 860 ml Microbiology Microbiology 03/12/19 Blood Culture - Final, Complete NO GROWTH AFTER 5 DAYS 03/12/19 Blood Culture - Final, Complete NO GROWTH AFTER 5 DAYS 03/12/19 Urine Culture - Final, Complete Staphylococcus Warneri Discharge Medications Scheduled Aspirin (Aspir 81) 81 Mg Tablet.dr, 81 MG PO DAILY, (Reported) Carbamazepine (Carbamazepine) 200 Mg Tablet, 300 MG PO QAM, (Reported) Carbamazepine (Carbamazepine) 200 Mg Tablet, 200 MG PO QHS, (Reported) Cholecalciferol (Vitamin D3) (Vitamin D3) 1,000 Unit Tablet, 1,000 UNIT PO DAILY, (Reported) Cyanocobalamin (Vitamin B-12) (Vitamin B-12) 1,000 Mcg Tablet, 1,000 MCG PO DAILY, (Reported) Divalproex Sodium (Divalproex Sodium ER) 250 Mg Tab.er.24h, 750 MG PO BID, (Repo rted) Doxycycline Hyclate (Doxycycline Hyclate) 100 Mg Tablet, 100 MG PO BID for 2 more days Ferrous Sulfate (Ferrous Sulfate) 325 Mg Tablet, 325 MG PO DAILY, (Reported) Guaifenesin (Mucinex) 600 Mg Tab.er.12h, 600 MG PO BID Levothyroxine Sodium (Synthroid) 50 Mcg Tablet, 50 MCG PO DAILY, (Reported) Metoprolol Succinate (Metoprolol Succinate) 50 Mg Tab.er.24h, 50 MG PO DAILY, (Reported) Allergies Coded Allergies: No Known Allergies (Verified , 10/29/08) RENA SUAZO MD March 21, 2019 11:35
== END 2019-03-21 13:40 | DRG 193 ==
LOC: EDBD 09:12 → M ED 09:12 → M ED INP 13:08 → M MS5PR 15:25
PROVIDERS: ADMIT Internal Medicine; ATTEND Internal Medicine Nephrology
DX: J18.9 Pneumonia, unspecified organism (principal); G93.41 Metabolic encephalopathy; N39.0 Urinary tract infection, site not specified; N17.9 Acute kidney failure, unspecified; E87.2 Acidosis; E03.9 Hypothyroidism, unspecified; G40.909 Epilepsy, unspecified, not intractable, without status epilepticus; I10 Essential (primary) hypertension; B95.5 Unspecified streptococcus as the cause of diseases classified elsewhere; F03.90 Unspecified dementia, unspecified severity, without behavioral disturbance, psychotic disturbance, mood disturbance, and anxiety; K21.9 Gastro-esophageal reflux disease without esophagitis; Z79.82 Long term (current) use of aspirin; Z79.899 Other long term (current) drug therapy

== ENCOUNTER → 2019-04-18 | Outpatient (CLI) | payer MEDICARE, MEDICAID ==
[~2019-04-18] MED LIST changes: +ASPI81TA85 PO; +DOXY100T PO; +MUCI600T31 PO; +SYNT50TA PO; +VITA-122 PO; +VITA100014 PO
--- NOTE | 2019-04-18 09:37 | REP ---
Chest two views HISTORY: Pneumonia Comparison: 03/12/2019 There is elevation of the right hemidiaphragm. The lungs are clear. The heart is normal in size. The pulmonary vasculature is normal in appearance. There is an old compression fracture of a mid thoracic vertebral body. There are old right rib fractures. IMPRESSION: No acute disease. Electronically Signed by Kwabena Roberts MD 04/18/2019 09:29 A
== END ==
LOC: M RAD 09:09
PROVIDERS: ATTEND Family Medicine
DX: J18.9 Pneumonia, unspecified organism (principal)

== ENCOUNTER → 2019-04-19 | Outpatient (REF) | payer MEDICARE, MEDICAID ==
[2019-04-19 12:25] LABS: BASO # 0.1 10^3/uL (0.0-0.2); BASO % 1.2 % (0.0-1.0); EOS # 0.5 10^3/uL (0.0-0.50); HEMOGLOBIN 12.7 g/dl (13.5-17.5); LYMPH # 1.5 10^3/uL (1.5-4.5); LYMPH % 23.2 % (24.0-44.0); MEAN CORPUSCULAR HEMOGLOBIN 31.4 pg (27.0-33.0); MEAN CORPUSCULAR HGB CONC 31.8 g/dl (32.0-36.5); MEAN CORPUSCULAR VOLUME 98.8 fl (80.0-96.0); MONO # 0.7 10^3/uL (0.0-0.8); MONO % 10.9 % (0.0-5.0); NEUTROPHILS # 3.7 10^3/uL (1.8-7.7); NEUTROPHILS % 57.1 % (36.0-66.0); PLATELET COUNT, AUTOMATED 190 10^3/uL (150-450); RED BLOOD COUNT 4.05 10^6/uL (4.30-6.10); WHITE BLOOD COUNT 6.4 10^3/uL (4.0-10.0)
[2019-04-19 13:14] LABS: ALBUMIN 3.1 GM/DL (3.2-5.2); ALT/SGPT 21 U/L (12-78); BILIRUBIN,TOTAL 0.2 MG/DL (0.2-1.0); BLOOD UREA NITROGEN 27 MG/DL (7-18); CALCIUM LEVEL 8.4 MG/DL (8.8-10.2); CARBON DIOXIDE LEVEL 28 MEQ/L (21-32); CHLORIDE LEVEL 102 MEQ/L (98-107); CHOLESTEROL LEVEL 200 MG/DL (<200); CHOLESTEROL RISK RATIO 3.703 (<5); CREATININE FOR GFR 1.04 MG/DL (0.70-1.30); FREE T4 0.73 NG/DL (0.76-1.46); GLOMERULAR FILTRATION RATE > 60.0 (>42); GLUCOSE, FASTING 82 MG/DL (70-100); HDL CHOLESTEROL 54 MG/DL (>40); LDL CHOLESTEROL 93 MG/DL (<100); NON-HDL-C 146 MG/DL; POTASSIUM SERUM 4.5 MEQ/L (3.5-5.1); SODIUM LEVEL 138 MEQ/L (136-145); TOTAL PROTEIN 7.2 GM/DL (6.4-8.2); TRIGLYCERIDES LEVEL 265 MG/DL (<150)
== END ==
LOC: SKLABADC 11:19
PROVIDERS: ATTEND Family Medicine
DX: E03.9 Hypothyroidism, unspecified (principal); E78.5 Hyperlipidemia, unspecified

== ENCOUNTER → 2019-12-19 | Outpatient (REF) | payer MEDICARE, MEDICAID ==
[~2019-12-19] MED LIST changes: +CYAN100049 PO; +CYAN100050 PO; -VITA100014 PO
[2019-12-19 10:29] LABS: BASO # 0.1 10^3/uL (0.0-0.2); BASO % 1.6 % (0.0-1.0); EOS # 0.6 10^3/uL (0.0-0.5); HEMATOCRIT 44.4 % (42.0-52.0); HEMOGLOBIN 14.2 g/dl (13.5-17.5); LYMPH # 1.5 10^3/uL (1.5-5.0); LYMPH % 29.3 % (24.0-44.0); MEAN CORPUSCULAR HEMOGLOBIN 31.8 pg (27.0-33.0); MEAN CORPUSCULAR VOLUME 99.6 fl (80.0-96.0); MONO # 0.6 10^3/uL (0.0-0.8); MONO % 11.6 % (0.0-5.0); NEUTROPHILS # 2.3 10^3/uL (1.5-8.5); NEUTROPHILS % 46.3 % (36.0-66.0); PLATELET COUNT, AUTOMATED 203 10^3/uL (150-450); RED BLOOD COUNT 4.46 10^6/uL (4.30-6.10)
[2019-12-19 11:01] LABS: ALBUMIN 3.5 GM/DL (3.2-5.2); ALT/SGPT 25 U/L (12-78); BILIRUBIN,TOTAL < 0.1 MG/DL (0.2-1.0); BLOOD UREA NITROGEN 31 MG/DL (7-18); CALCIUM LEVEL 9.2 MG/DL (8.8-10.2); CARBON DIOXIDE LEVEL 32 MEQ/L (21-32); CHLORIDE LEVEL 104 MEQ/L (98-107); CHOLESTEROL LEVEL 212 MG/DL (<200); CHOLESTEROL RISK RATIO 3.785 (<5); CREATININE FOR GFR 1.03 MG/DL (0.70-1.30); FREE T4 0.94 NG/DL (0.76-1.46); GLOMERULAR FILTRATION RATE > 60.0 (>42); GLUCOSE, FASTING 61 MG/DL (70-100); HDL CHOLESTEROL 56 MG/DL (>40); LDL CHOLESTEROL 118 MG/DL (<100); NON-HDL-C 156 MG/DL; POTASSIUM SERUM 4.2 MEQ/L (3.5-5.1); SODIUM LEVEL 140 MEQ/L (136-145); TOTAL PROTEIN 7.3 GM/DL (6.4-8.2); TRIGLYCERIDES LEVEL 190 MG/DL (<150)
== END ==
LOC: SKLABADC 09:25
PROVIDERS: ATTEND Family Medicine
DX: E03.9 Hypothyroidism, unspecified (principal); E78.5 Hyperlipidemia, unspecified; D64.9 Anemia, unspecified

== ENCOUNTER → 2019-12-21 | Outpatient (REF) | payer MEDICARE, MEDICAID | LOC: SKLABADC 09:46 | PROVIDERS: ATTEND Family Medicine | DX: D64.9 Anemia, unspecified (principal); E03.9 Hypothyroidism, unspecified; E78.5 Hyperlipidemia, unspecified; Z79.82 Long term (current) use of aspirin; Z79.899 Other long term (current) drug therapy ==

== ENCOUNTER → 2019-12-25 | Outpatient (POV) | payer MEDICARE, MEDICAID | LOC: SKLABADC 13:04 | PROVIDERS: ATTEND Family Medicine | DX: D64.9 Anemia, unspecified (principal) ==

== ENCOUNTER → 2019-12-27 | Outpatient (POV) | payer MEDICARE, MEDICAID | LOC: SKLABADC 10:10 | PROVIDERS: ATTEND Family Medicine | DX: Z12.12 Encounter for screening for malignant neoplasm of rectum (principal); Z53.8 Procedure and treatment not carried out for other reasons ==

== ENCOUNTER → 2019-12-28 | Outpatient (POV) | payer MEDICARE, MEDICAID | LOC: SKLABADC 13:22 | PROVIDERS: ATTEND Family Medicine | DX: Z12.12 Encounter for screening for malignant neoplasm of rectum (principal) ==

== ENCOUNTER 2021-09-04 14:15 | Inpatient (IN) | payer MEDICARE, MEDICAID ==
[~2021-09-04] VITALS: Ht 170.2 cm; Wt 63.5 kg
[~2021-09-04 14:15] MED LIST changes: -AMLO10TA5 PO; +AMLO1TAB25 PO; +ASPI-546 PO; +ASPI-569 PO; -ASPI1TAB15 PO; -ASPI81TA85 PO; +ASPI81TA86 PO; -ASPI81TAEC PO
--- OUTSIDE RECORDS SUMMARY | 2021-09-04 15:37 | CCD | Continuity of Care Document ---
Author Author Serjio SORENSON M.D. Organization Unknown Address [address] [place] [id number] Phone [phone] Care Team Providers Care Marketing Traffic Coordinator Name Role Phone Israel Smith M.D. AUTM [phone] Problems Active Problems Provider Date Dementia Ariel Sorenson M.D. Onset: 06/07/2014 Social History Type Date Description Comments Sex Unknown Tobacco Use Start: Unknown End: Unknown Patient is a former smoker Allergies, Adverse Reactions, Alerts Description No Known Drug Allergies Medications Active Medications SIG Qnty Indications Ordering Provide r Date Tegretol 200mg Tablets take 1.5 tabs in the morning, and 1 tab pm. 225audrey Sorenson M.D. 03/05/2016 Depakote ER 250mg Tablets ER 24HR take three tablets by mouth in the morning and night. 540audrey Sorenson M.D. 03/07/2015 Immunizations Description No Information Available Vital Signs Date Vital Result Comment 08/18/2021 12:52pm Respiratory Rate 12 /min Height 69 inches 5'9" Weight 140.00 lb BMI (Body Mass Index) 20.7 kg/m2 [place] Body Weight 160 lb 05/06/2021 2:46pm Respiratory Rate 12 /min Height 69 inches 5'9" Weight 140.00 lb BMI (Body Mass Index) 20.7 kg/m2 [place] Body Weight 160 lb Results Description No Information Available Procedures Date Code Description Status 05/06/2021 57576 Phone Evaluation/Management Phys ician 11-20 Mins Completed Medical Devices Description No Information Available Encounters Type Date Location Provider Dx Diagnosis Office Visit 05/06/2021 2:00p [place] 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 08/18/2021 F02.80 Dementia in other diseases class ified elsewhere without beha Ariel Sorenson M.D. 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 05/06/2021 F02.80 Dementia in other diseases class ified elsewhere without beha Ariel Sorenson M.D. 05/06/2021 R55 Syncope and collapse Ariel mendenhall M.D. 05/06/2021 R26.81 Unsteadiness on feet Ariel mendenhall M.D. Plan of Treatment No Information Available Functional Status Description No Information Available Mental Status Description No Information Available Referrals Description No Information Available
--- OUTSIDE RECORDS SUMMARY | 2021-09-04 15:37 | CCD | Continuity of Care Document ---
Author Author Serjio SORENSON M.D. Organization Unknown Address [address] [place] [id number] Phone [phone] Care Team Providers Care Internet Sourcer Name Role Phone Israel Smith M.D. AUTM [phone] Problems Active Problems Provider Date Dementia Ariel Sorenson M.D. Onset: 06/07/2014 Social History Type Date Description Comments Sex Unknown Tobacco Use Start: Unknown End: Unknown Patient is a former smoker Allergies and adverse reactions Description No Known Drug Allergies Medications Active Medications SIG Qnty Indications Ordering Provide r Date Tegretol 200mg Tablets take 1.5 tabs in the morning, and 1 tab pm. 225tamimi Sorenson M.D. 03/05/2016 Depakote ER 250mg Tablets ER 24HR take three tablets by mouth in the morning and night. 540tabs Ariel Sorenson M.D. 03/07/2015 Immunizations Description No Information Available Vital Signs Date Vital Result Comment 08/18/2021 12:52pm Respiratory Rate 12 /min Height 69 inches 5'9" Weight 140.00 lb BMI (Body Mass Index) 20.7 kg/m2 [place] Body Weight 160 lb 05/06/2021 2:46pm Respiratory Rate 12 /min Height 69 inches 5'9" Weight 140.00 lb BMI (Body Mass Index) 20.7 kg/m2 [place] Body Weight 160 lb Results Description No Information Available Procedures Date Code Description Status 08/18/2021 [id number] Phone Evaluation/Management Phys ician 11-20 Mins Completed 05/06/2021 [id number] Phone Evaluation/Management Phys ician 11-20 Mins Completed Medical Devices Description No Information Available Encounters Type Date Location Provider Dx Diagnosis Office Visit 08/18/2021 12:30p Main office - [place] Ariel hernandez M.D. 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 G40.309 Gen idiopathic epilepsy, not [...] feet Ariel mendenhall M.D. Plan of Treatment Future Appointment(s):* 12/18/2021 11:15 am - Ariel Sorenson M.D. at [facility] Functional Status Description No Information Available Mental Status Description No Information Available Referrals Description No Information Available
--- OUTSIDE RECORDS SUMMARY | 2021-09-04 15:38 | CCD ---
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 Name Role Phone NELLY BLAKE MD Unavailable Unavailable NELLY BLAKE MD Unavailable Unavailable NELLY BLAKE MD Unavailable Unavailable NELLY BLAKE MD Unavailable Unavailable NELLY BLAKE MD Unavailable Unavailable NELLY BLAKE MD Unavailable Unavailable NELLY BLAKE MD Unavailable Unavailable NELLY BLAKE MD Unavailable Unavailable NELLY BLAKE MD Unavailable Unavailable NELLY BLAKE MD Unavailable Unavailable NELLY BLAKE MD Unavailable Unavailable NELLY BLAKE MD Unavailable Unavailable NELLY BLAKE MD Unavailable Unavailable NELLY BLAKE MD Unavailable Unavailable NELLY BLAKE MD Unavailable Unavailable NELLY BLAKE MD Unavailable Unavailable NELLY BLAKE MD Unavailable Unavailable NELLY BLAKE MD Unavailable Unavailable NELLY BLAKE MD Unavailable Unavailable NELLY BLAKE MD Unavailable Unavailable NELLY BLAKE MD Unavailable Unavailable NELLY BLAKE MD Unavailable Unavailable NELLY BLAKE MD Unavailable Unavailable NELLY BLAKE MD Unavailable Unavailable NELLY BLAKE MD Unavailable Unavailable NELLY BLAKE MD Unavailable Unavailable NLELY BLAKE MD Unavailable Unavailable NELLY BLAKE MD Unavailable Unavailable NELLY BLAKE MD Unavailable Unavailable NELLY BLAKE MD Unavailable Unavailable NELLY BLAKE MD Unavailable Unavailable NELLY BLAKE MD Unavailable Unavailable BLAKE, NELLY MD Unavailable Unavailable BLAKE, NELLY MD Unavailable Unavailable BLAKE, NELLY MD Unavailable Unavailable BLAKE, NELLY MD Unavailable Unavailable BLAKE, NELLY MD Unavailable Unavailable BLAKE, NELLY MD Unavailable Unavailable BLAKE, NELLY MD Unavailable Unavailable BLAKE, NELLY MD Unavailable Unavailable BLAKE, NELLY MD Unavailable Unavailable BLAKE, NELLY MD Unavailable Unavailable BLAKE, NELLY MD Unavailable Unavailable BLAKE, NELLY MD Unavailable Unavailable BLAKE, NELLY MD Unavailable Unavailable BLAKE, NELLY MD Unavailable Unavailable BLAKE, NELLY MD Unavailable Unavailable BLAKE, NELLY MD Unavailable Unavailable BLAKE, NELLY MD Unavailable Unavailable BLAKE, NELLY MD Unavailable Unavailable BLAKE, NELLY MD Unavailable Unavailable BLAKE, NELLY MD Unavailable Unavailable BLAKE, NELLY MD Unavailable Unavailable BLAKE, NELLY MD Unavailable Unavailable BLAKE, NELLY MD Unavailable Unavailable BLAKE, NELLY MD Unavailable Unavailable BLAKE, NELLY MD Unavailable Unavailable BLAKE, NELLY MD Unavailable Unavailable BLAKE, NELLY MD Unavailable Unavailable BLAKE, NELLY MD Unavailable Unavailable BLAKE, NELLY MD Unavailable Unavailable BLAKE, NELLY MD Unavailable Unavailable BLAKE, NELLY MD Unavailable Unavailable BLAKE, NELLY MD Unavailable Unavailable BLAKE, NELLY MD Unavailable Unavailable BLAKE, NELLY MD Unavailable Unavailable BLAKE, NELLY MD Unavailable Unavailable BLAKE, NELLY MD Unavailable Unavailable BLAKE, NELLY MD Unavailable Unavailable BLAKE, NELLY MD Unavailable Unavailable BLAKE, NELLY MD Unavailable Unavailable BLAKE, NELLY MD Unavailable Unavailable BLAKE, NELLY MD Unavailable Unavailable BLAKE, NELLY MD Unavailable Unavailable BLAKE, NELLY MD Unavailable Unavailable BLAKE, NELLY MD Unavailable Unavailable BLAKE, NELLY MD Unavailable Unavailable BLAKE, NELLY MD Unavailable Unavailable BLAKE, NELLY MD Unavailable Unavailable BLAKE, NELLY MD Unavailable Unavailable BLAKE, NELLY MD Unavailable Unavailable BLAKE, NELLY MD Unavailable Unavailable BLAKE, NELLY MD Unavailable Unavailable BLAKE, NELLY MD Unavailable Unavailable BLAKE, NELLY MD Unavailable Unavailable BLAKE, NELLY MD Unavailable Unavailable BLAKE, NELLY MD Unavailable Unavailable BLAKE, NELLY MD Unavailable Unavailable BLAKE, NELLY MD Unavailable Unavailable BLAKE, NELLY MD Unavailable Unavailable BLAKE, NELLY MD Unavailable Unavailable BLAKE, NELLY MD Unavailable Unavailable BLAKE, NELLY MD Unavailable Unavailable BLAKE, NELLY MD Unavailable Unavailable BLAKE, NELLY MD Unavailable Unavailable BLAKE, NELLY MD Unavailable Unavailable BLAKE, NELLY MD Unavailable Unavailable BLAKE, NELLY MD Unavailable Unavailable BLAKE, NELLY MD Unavailable Unavailable BLAKE, NELLY MD Unavailable Unavailable BLAKE, NELLY MD Unavailable Unavailable BLAKE, NELLY MD Unavailable Unavailable BLAKE, NELLY MD Unavailable Unavailable BLAKE, NELLY MD Unavailable Unavailable BLAKE, NELLY MD Unavailable Unavailable BLAKE, NELLY MD Unavailable Unavailable BLAKE, NELLY MD Unavailable Unavailable BLAKE, NELLY MD Unavailable Unavailable BLAKE, NELLY MD Unavailable Unavailable BLAKE, NELLY MD Unavailable Unavailable BLAKE, NELLY MD Unavailable Unavailable BLAKE, NELLY MD Unavailable Unavailable BLAKE, NELLY MD Unavailable Unavailable BLAKE, NELLY MD Unavailable Unavailable BLAKE, NELLY MD Unavailable Unavailable BLAKE, NELLY MD Unavailable Unavailable BLAKE, NELLY MD Unavailable Unavailable BLAKE, NELLY MD Unavailable Unavailable BLAKE, NELLY MD Unavailable Unavailable BLAKE, NELLY MD Unavailable Unavailable BLAKE, NELLY MD Unavailable Unavailable BLAKE, NELLY MD Unavailable Unavailable BLAKE, NELLY MD Unavailable Unavailable BLAKE, NELLY MD Unavailable Unavailable BLAKE, NELLY MD Unavailable Unavailable BLAKE, NELLY MD Unavailable Unavailable BLAKE, NELLY MD Unavailable Unavailable BLAKE, NELLY MD Unavailable Unavailable BLAKE, NELLY MD Unavailable Unavailable BLAKE, NELLY MD Unavailable Unavailable BLAKE, NELLY MD Unavailable Unavailable BLAKE, NELLY MD Unavailable Unavailable BLAKE, NELLY MD Unavailable Unavailable BLAKE, NELLY MD Unavailable Unavailable BLAKE, NELLY MD Unavailable Unavailable BLAKE, NELLY MD Unavailable Unavailable BLAKE, NELLY MD Unavailable Unavailable BLAKE NELLY MD Unavailable Unavailable BLAKE NELLY MD Unavailable Unavailable BLAKE, NELLY MD Unavailable Unavailable Jarvis Galeas MD Unavailable Unavailable Jarvis Galeas MD Unavailable Unavailable Jarvis Galeas MD Unavailable Unavailable Jarvis Galeas MD Unavailable Unavailable Jarvis Galeas MD Unavailable Unavailable Jarvis Galeas MD Unavailable Unavailable Jarvis Galeas MD Unavailable Unavailable Jarvis Galeas MD Unavailable Unavailable Jarvis Galeas MD Unavailable Unavailable Jarvis Galeas MD Unavailable Unavailable Jarvis Galeas MD Unavailable Unavailable Jarvis Galeas MD Unavailable Unavailable Jarvis Galeas MD Unavailable Unavailable Jarvis Galeas MD Unavailable Unavailable Jarvis Galeas MD Unavailable Unavailable Jarvis Galeas MD Unavailable Unavailable Jarvis Galeas MD Unavailable Unavailable Jarvis Galeas MD Unavailable Unavailable Jarvis Galeas MD Unavailable Unavailable Jarvis Galeas MD Unavailable Unavailable Jarvis Galeas MD Unavailable Unavailable Jarvis Galeas MD Unavailable Unavailable Jarvis Galeas MD Unavailable Unavailable Jarvis Galeas MD Unavailable Unavailable Jarvis Galeas MD Unavailable Unavailable Jarvis Galeas MD Unavailable Unavailable Jarvis Galeas MD Unavailable Unavailable Jarvis Galeas MD Unavailable Unavailable Jarvis Galeas MD Unavailable Unavailable Jarvis Galeas MD Unavailable Unavailable Jarvis Galeas MD Unavailable Unavailable Jarvis Galeas MD Unavailable Unavailable Jarvis Galeas MD Unavailable Unavailable Jarvis Galeas MD Unavailable Unavailable Jarvis Galeas MD Unavailable Unavailable Jarvis Galeas MD Unavailable Unavailable Jarvis Galeas MD Unavailable Unavailable Jarvis Galeas MD Unavailable Unavailable Jarvis Galeas MD Unavailable Unavailable Jarvis Galeas MD Unavailable Unavailable Jarvis Galeas MD Unavailable Unavailable Jarvis Galeas MD Unavailable Unavailable Jarvis Galeas MD Unavailable Unavailable Jarvis Galeas MD Unavailable Unavailable Jarvis Galeas MD Unavailable Unavailable Jarvis Galeas MD Unavailable Unavailable Jarvis Galeas MD Unavailable Unavailable Jarvis Galeas MD Unavailable Unavailable Jarvis Galeas MD Unavailable Unavailable Jarvis Galeas MD Unavailable Unavailable Jarvis Galeas MD Unavailable Unavailable Jarvis Galeas MD Unavailable Unavailable Jarvis Galeas MD Unavailable Unavailable Jarvis Galeas MD Unavailable Unavailable Jarvis Galeas MD Unavailable Unavailable Jarvis Galeas MD Unavailable Unavailable Jarvis Galeas MD Unavailable Unavailable Jarvis Galeas MD Unavailable Unavailable Adal, O Samah MD Unavailable Unavailable Adal, O Samah MD Unavailable Unavailable Adal, O Samah MD Unavailable Unavailable Adal, O Samah MD Unavailable Unavailable Adal, O Samah MD Unavailable Unavailable Adal, O Samah MD Unavailable Unavailable Adal, O Samah MD Unavailable Unavailable Adal, O Samah MD Unavailable Unavailable Adal, O Samah MD Unavailable Unavailable Adal, O Samah MD Unavailable Unavailable Adal, O Samah MD Unavailable Unavailable Adal, O Samah MD Unavailable Unavailable Adal, O Samah MD Unavailable Unavailable Adal, O Samah MD Unavailable Unavailable Adal, O Samah MD Unavailable Unavailable Adal, O Samah MD Unavailable Unavailable Adal, O Samah MD Unavailable Unavailable Adal, O Samah MD Unavailable Unavailable Adal, O Samah MD Unavailable Unavailable Adal, O Samah MD Unavailable Unavailable Adal, O Samah MD Unavailable Unavailable Re-disclosure Warning The records that you are about to access may contain information from federally-assisted alcohol or drug abuse programs. If such information is present, then the following federally mandated warning applies: This information has been disclosed to you from records protected by federal confidentiality rules (42 CFR part 2). The federal rules prohibit you from making any further disclosure of this information unless further disclosure is expressly permitted by the written consent of the person to whom it pertains or as otherwise permitted by 42 CFR part 2. A general authorization for the release of medical or other information is NOT sufficient for this purpose. The Federal rules restrict any use of the information to criminally investigate or prosecute any alcohol or drug abuse patient.The records that you are about to access may contain highly sensitive health information, the redisclosure of which is protected by Article 27-F of the [facility] Public Health law. If you continue you may have access to information: Regarding HIV / AIDS; Provided by facilities licensed or operated by the [facility] Office of Mental Health; or Provided by the [facility] Office for People With Developmental Disabilities. If such information is present, then the following [facility] mandated warning applies: This information has been disclosed to you from confidential records which are protected by state law. State law prohibits you from making any further disclosure of this information without the specific written consent of the person to whom it pertains, or as otherwise permitted by law. Any unauthorized further disclosure in violation of state law may result in a fine or skilled nursing sentence or both. A general authorization for the release of medical or other information is NOT sufficient authorization for further disc losure. Allergies and Adverse Reactions Type Description Substance Reaction Status Data Source(s ) No Known Allergies No Known Allergies Family History Family Member Name Family Member Gender Family Member Status Date o f Status Description Data Source(s) Unknown Female Problem [facility] ([facility]) Encounters Encounter Providers Location Date Indications Data Source(s ) Office Visit Attender: Ariel Galeas MD [facility] 08/18/2021 12:30:00 PM EDT [facility] ([facility]) Office Visit Attender: Ariel Galeas MD [facility] 05/06/2021 02:00:00 PM EDT [facility] ([facility]) Outpatient Attender: NELLY BLAKE MDConsultant: NELLY Marcial MD 04/15/2021 08:04:00 AM EDT - 04/15/2021 08:04:00 AM EDT Outpatient Attender: NELLY BLAKE MD [facility] 04/15/2021 0 8:00:00 AM EDT [facility] ( Clinics) Office Visit Attender: Ariel Galeas MD [facility] 01/20/2021 09:30:00 AM EST [facility] ([facility]) Office Visit Attender: Ariel Galeas MD [facility] 10/18/2020 10:45:00 AM EST [facility] ([facility]) Office Visit Attender: Ariel Galeas MD [facility] 07/09/2020 12:45:00 PM EDT [facility] ([facility]) Outpatient Attender: NELLY BLAKE MDConsultant: NELLY Marcial MD 07/04/2020 02:07:00 PM EDT - 07/04/2020 02:07:00 PM EDT Medications Medication Brand Name Start Date Product Form Dose Route Admi nistrative Instructions Pharmacy Instructions Status Indications Reaction Description Data Source(s) 25 mcg (1,000 unit) 08/11/2021 12:00:00 AM EDT tablet 90 TAKE ONE TABLET BY MOUTH EVERY DAY TAKE ONE TABLET BY MOUTH EVERY DAY SOLD: 08/11/2021 [facility] 1,000 mcg 08/11/2021 12:00:00 AM EDT tablet 90 TAKE ONE TABLET BY MOUTH EVERY DAY TAKE ONE TABLET BY MOUTH EVERY DAY SOLD: 08/11/2021 [facility] 250 mg 05/07/2021 12:00:00 AM EDT tablet extended release 24 hr 540 TAKE 3 TABLETS BY MOUTH 2 TIMES A DAY (MORNING & NIGHT) TAKE 3 TABLETS BY MOUTH 2 TIMES A DAY (MORNING & NIGHT) SOLD: 05/07/2021 [facility] 200 mg 05/07/2021 12:00:00 AM EDT tablet 225 TAKE ONE AND ONE-HALF TABLETS BY MOUTH EVERY MORNING & 1 TABLET EVERY EVENING TAKE ONE AND ONE-HALF TABLETS BY MOUTH EVERY MORNING & 1 TABLET EVERY EVENING SOLD: 05/07/2021 [facility] 200 mg 05/07/2021 12:00:00 AM EDT tablet 225 TAKE ONE AND ONE-HALF TABLETS BY MOUTH EVERY MORNING & 1 TABLET EVERY EVENING TAKE ONE AND ONE-HALF TABLETS BY MOUTH EVERY MORNING & 1 TABLET EVERY EVENING SOLD: 08/05/2021 [facility] 250 mg 05/07/2021 12:00:00 AM EDT tablet extended release 24 hr 540 TAKE 3 TABLETS BY MOUTH 2 TIMES A DAY (MORNING & NIGHT) TAKE 3 TABLETS BY MOUTH 2 TIMES A DAY (MORNING & NIGHT) SOLD: 08/05/2021 [facility] 75 mcg 04/17/2021 12:00:00 AM EDT tablet 90 TAKE ONE TABLET BY MOUTH EVERY DAY TAKE ONE TABLET BY MOUTH EVERY DAY SOLD: 08/11/2021 [facility] 75 mcg 04/17/2021 12:00:00 AM EDT tablet 90 TAKE ONE TABLET BY MOUTH EVERY DAY TAKE ONE TABLET BY MOUTH EVERY DAY SOLD: 05/04/2021 [facility] Levothyroxine Sodium 0.075 MG Oral Tablet Levothyroxine Sodi um 04/17/2021 12:00:00 AM EDT ORAL active M [facility]ENT ([facility]) 25 mcg (1,000 unit) 04/16/2021 12:00:00 AM EDT tablet 90 TAKE ONE TABLET BY MOUTH EVERY DAY TAKE ONE TABLET BY MOUTH EVERY DAY SOLD: 04/17/2021 [facility] 8.6-50 mg 04/15/2021 12:00:00 AM EDT tablet 90 TAKE ONE TABLET BY MOUTH EVERY DAY TAKE ONE TABLET BY MOUTH EVERY DAY SOLD: 04/17/2021 [facility] 25 mg 02/28/2021 12:00:00 AM EDT tablet 180 TAKE ONE TABLET BY MOUTH TWICE A DAY TAKE ONE TABLET BY MOUTH TWICE A DAY SOLD: 08/30/2021 [facility] 25 mg 02/28/2021 12:00:00 AM EDT tablet 180 TAKE ONE TABLET BY MOUTH TWICE A DAY TAKE ONE TABLET BY MOUTH TWICE A DAY SOLD: 05/31/2021 [facility] 25 mg 02/28/2021 12:00:00 AM EDT tablet 180 TAKE ONE TABLET BY MOUTH TWICE A DAY TAKE ONE TABLET BY MOUTH TWICE A DAY SOLD: 03/02/2021 [facility] 50 mcg 01/30/2021 12:00:00 AM EDT tablet 90 TAKE ONE TABLET BY MOUTH EVERY DAY TAKE ONE TABLET BY MOUTH EVERY DAY SOLD: 02/03/2021 [facility] 4 Wheel Walker With Seat 09/30/2020 12:00:00 AM EST active [facility] ([facility]) 4 Wheeled Walker 09/27/2020 12:00:00 AM EST c ompleted [facility] ([facility]) 50 mcg 07/29/2020 12:00:00 AM EDT tablet 90 TAKE ONE TABLET BY MOUTH EVERY DAY TAKE ONE TABLET BY MOUTH EVERY DAY SOLD: 11/03/2020 [facility] 50 mcg 07/29/2020 12:00:00 AM EDT tablet 90 TAKE ONE TABLET BY MOUTH EVERY DAY TAKE ONE TABLET BY MOUTH EVERY DAY SOLD: 08/01/2020 [facility] 25 mg 05/27/2020 12:00:00 AM EDT tablet 180 TAKE ONE TABLET BY MOUTH TWICE A DAY TAKE ONE TABLET BY MOUTH TWICE A DAY SOLD: 12/02/2020 [facility] 25 mg 05/27/2020 12:00:00 AM EDT tablet 180 TAKE ONE TABLET BY MOUTH TWICE A DAY TAKE ONE TABLET BY MOUTH TWICE A DAY SOLD: 09/01/2020 [facility] 200 mg 05/04/2020 12:00:00 AM EDT tablet 225 TAKE 1 AND 1/2 TABLETS BY MOUTH IN THE MORNING AND 1 TABLET IN THE EVENING TAKE 1 AND 1/2 TABLETS BY MOUTH IN THE MORNING AND 1 TABLET IN THE EVENING SOLD: 02/03/2021 [facility] 250 mg 05/04/2020 12:00:00 AM EDT tablet extended release 24 hr 540 TAKE 3 TABLETS BY MOUTH IN THE MORNING AND 3 TABLETS AT NIGHT TAKE 3 TABLETS BY MOUTH IN THE MORNING AND 3 TABLETS AT NIGHT SOLD: 11/03/2020 [facility] 200 mg 05/04/2020 12:00:00 AM EDT tablet 225 TAKE 1 AND 1/2 TABLETS BY MOUTH IN THE MORNING AND 1 TABLET IN THE EVENING TAKE 1 AND 1/2 TABLETS BY MOUTH IN THE MORNING AND 1 TABLET IN THE EVENING SOLD: 11/03/2020 [facility] 200 mg 05/04/2020 12:00:00 AM EDT tablet 225 TAKE 1 AND 1/2 TABLETS BY MOUTH IN THE MORNING AND 1 TABLET IN THE EVENING TAKE 1 AND 1/2 TABLETS BY MOUTH IN THE MORNING AND 1 TABLET IN THE EVENING SOLD: 08/01/2020 [facility] 250 mg 05/04/2020 12:00:00 AM EDT tablet extended release 24 hr 540 TAKE 3 TABLETS BY MOUTH IN THE MORNING AND 3 TABLETS AT NIGHT TAKE 3 TABLETS BY MOUTH IN THE MORNING AND 3 TABLETS AT NIGHT SOLD: 02/03/2021 [facility] 250 mg 05/04/2020 12:00:00 AM EDT tablet extended release 24 hr 540 TAKE 3 TABLETS BY MOUTH IN THE MORNING AND 3 TABLETS AT NIGHT TAKE 3 TABLETS BY MOUTH IN THE MORNING AND 3 TABLETS AT NIGHT SOLD: 08/01/2020 [facility] 1,000 mcg 03/13/2020 12:00:00 AM EDT tablet 90 TAKE ONE TABLET BY MOUTH EVERY DAY TAKE ONE TABLET BY MOUTH EVERY DAY SOLD: 04/17/2021 [facility] 25 mcg (1,000 unit) 03/13/2020 12:00:00 AM EDT tablet 90 TAKE ONE TABLET BY MOUTH EVERY DAY TAKE ONE TABLET BY MOUTH EVERY DAY SOLD: 10/02/2020 [facility] 1,000 mcg 03/13/2020 12:00:00 AM EDT tablet 90 TAKE ONE TABLET BY MOUTH EVERY DAY TAKE ONE TABLET BY MOUTH EVERY DAY SOLD: 10/02/2020 [facility] 25 mcg (1,000 unit) 03/13/2020 12:00:00 AM EDT tablet 90 TAKE ONE TABLET BY MOUTH EVERY DAY TAKE ONE TABLET BY MOUTH EVERY DAY SOLD: 04/17/2021 [facility] 25 mcg (1,000 unit) 03/13/2020 12:00:00 AM EDT tablet 90 TAKE ONE TABLET BY MOUTH EVERY DAY TAKE ONE TABLET BY MOUTH EVERY DAY SOLD: 01/08/2021 [facility] 1,000 mcg 03/13/2020 12:00:00 AM EDT tablet 90 TAKE ONE TABLET BY MOUTH EVERY DAY TAKE ONE TABLET BY MOUTH EVERY DAY SOLD: 01/08/2021 [facility] Insurance Providers Payer name Policy type / Coverage type Policy ID Covered democrat ID Covered democrat's relationship to monsivais Policy Monsivais Plan Information [facility] MEDICAID [id number] SP [id number] MEDICARE [id number] SP [id number] MEDICARE PART A [facility] [id number] 18 [id number] MEDICAID [id number] SP [id number] [facility] [id number] SP [id number] VNA HOMECARE OPTIONS [id number] SP [id number] MEDICARE C [id number] S [id number] MEDICAID [id number] S [id number] VNA HOMECARE OPTIONS [id number] SP [id number] Medicare Part A [place] Primary [id number] Self [id number] VNA HOMECARE OPTIONS [id number] SP [id number] [facility] PART B C [id number] S [id number] Medicare Part A [place] Primary [id number] Self [id number] MEDICARE [id number] SP [id number] A Medicare Part A [place] Medicare Primary [id number] Self [id number] Medicare Part [place] Medicare Primary [id number] Self [id number] MEDICARE PART A [facility] [id number] Medicare Part A [place] Medicare Primary [id number] Self [id number] Medicare Part [place] Medicare Primary [id number] Self [id number] Medicare Part [place] Medicare Primary [id number] Self [id number] Medicare Part [place] Medicare Primary [id number] Self [id number] Medicaid [facility] Medicaid [id number] Self [id number] Medicare Part A [place] Medicare Primary [id number] Self [id number] MEDICAID [facility] [id number] MEDICAID [id number] SP [id number] Medicaid [facility] Medicaid [id number] Self Medicare Part A [place] Medicare Primary [id number] Self MEDICARE C [id number] S [id number] MEDICAID -CLINIC [id number] MEDICARE PART A-CLINIC [id number] 18 [id number] MEDICAID-PHYSICIAN [id number] MEDICAID-O/P RAD [id number] MEDICARE PART B-PHYSICIAN [id number] 18 [id number] MEDICAID-O/P [id number] MEDICARE -O/P [id number] 18 [id number] MEDICARE PART A-CLINIC [id number] 18 [id number] A Problems, Conditions, and Diagnoses Code Display Name Description Problem Type Effective Dates Data Source(s) Z125 Encounter for screening for malignant ne oplasm of prostate Encounter for screening for malignant neoplasm of prostate Diagnosis 08:04:00 AM EDT A50338 Personal history of nicotine dependence Personal history of nicotine dependence Diagnosis 04/15/2021 08:04:00 AM EDT G309 Alzheimer's disease, unspecified Alzheimer's dis ease, unspecified Diagnosis 04/15/2021 08:04:00 AM EDT D649 Anemia, unspecified Anemia, unspecified Diagnosis 0 04/15/2021 08:04:00 AM EDT E559 Vitamin D deficiency, unspecified Vitamin D defi ciency, unspecified Diagnosis 04/15/2021 08:04:00 AM EDT K219 Gastro-esophageal reflux disease without esophagitis Gastro-esophageal reflux disease without esophagitis Diagnosis 04/15/2021 08:04:00 AM ED T I10 Essential (primary) hypertension Essential (primary) h ypertension Diagnosis 04/15/2021 08:04:00 AM EDT E785 Hyperlipidemia, unspecified Hyperlipidemia, unspecifie d Diagnosis 04/15/2021 08:04:00 AM EDT E039 Hypothyroidism, unspecified Hypothyroidism, unspecifie d Diagnosis 04/15/2021 08:04:00 AM T Z0000 Encounter for general adult medical exam ination without abnormal findings Encounter for general adult medical examination without abnormal findings Diagnosis 04/15/2021 08:04:00 AM [facility] Surgeries/Procedures Procedure Description Date Indications Data Source(s) PHYSICIAN TELEPHONE EVALUATION 11-20 MIN 08/18/2021 12 :00:00 AM EDT [facility] ([facility]) PHYSICIAN TELEPHONE EVALUATION 11-20 MIN 05/06/2021 12 :00:00 AM EDT [facility] ([facility]) Brief Emotional/Behav Assessment W/ Scoring Doc Per Standard Inst 04/15/2021 12:00:00 AM EDT [facility] ([facility]) Admin Patient Focused Health Risk Assessment Instrument 04/15/2021 12:00:00 AM [facility] PHYSICIAN TELEPHONE EVALUATION 11-20 MIN 01/20/2021 12 :00:00 AM EST [facility] ([facility] ELECTROENCEPHALOGRAM W/REC AWAKE&ASLEEP 08/22/2020 12: 00:00 AM EDT [facility] ([facility] ELECTROENCEPHALOGRAM W/REC AWAKE&ASLEEP 08/22/2020 12: 00:00 AM EDT [facility] ([facility] MRI BRAIN BRAIN STEM W/O CONTRAST MATERIAL 07/20/2020 12:00:00 AM EDT [facility] ([facility] MRI BRAIN BRAIN STEM W/O CONTRAST MATERIAL 07/20/2020 12:00:00 AM EDT [facility] ([facility] Results ID Date Data Source [id number] 04/15/2021 08:39:00 AM EDT [facility] ([facility]) Name Value Range Interpretation Code Description Data Rufina rce(s) Supporting Document(s) Prostate specific Ag [Mass/volume] in Serum or Plasma 0.52 ng/mL 0.00 -4.00 [facility] ([facility]) Is patient fasting? N ID Date Data Source [id number] 04/15/2021 08:39:00 AM EDT [facility] ([facility]) Name Value Range Interpretation Code Description Data Rufina rce(s) Supporting Document(s) [facility] test result [facility] ([facility]) Is patient fasting? N Potassium 4.4 meq/L 3.6-5.0 [facility] ([facility]) Is patient fasting? N Sodium 136 meq/L 134-153 [facility] ([facility]) Is patient fasting? N Chloride 97 meq/L 98-107 Below low normal [facility] ( [facility]) Is patient fasting? N Glucose 73 mg/dL 70-99 [facility] ([facility]) Is patient fasting? N Co2 27 meq/L 22-30 [facility] ([facility]) Is patient fasting? N Creatinine 0.9 mg/dL 0.7-1.5 [facility] ([facility]) Is patient fasting? N BUN/Creat 36 8-27 Above high normal [facility] ([facility]) Is patient fasting? N BUN 32 mg/dL 7-21 Above high normal [facility] ([facility]) Is patient fasting? N Total Protein 7.3 g/dL 6.3-8.2 [facility] ([facility]) Is patient fasting? N Albumin 4.2 g/dL 3.9-5.0 [facility] ([facility]) Is patient fasting? N A/G Ratio 1.4 0.8-2.0 [facility] ([facility]) Is patient fasting? N Calcium 9.8 mg/dL 8.4-10.2 [facility] ([facility]) Is patient fasting? N Globulin 3.1 GM/DL 2.4-3.2 [facility] ([facility]) Is patient fasting? N Alkaline Phos 73 U/L 38-126 [facility] ([facility]) Is patient fasting? N Total Bili Laboratory test result 0.2-1.3 ME D[facility] ([facility]) Is patient fasting? N SGPT/Alt 14 U/L 7-56 [facility] ([facility]) Is patient fasting? N Sgot/Ast 19 U/L 5-40 [facility] ([facility]) Is patient fasting? N Age 80 yrs [facility] ([facility]) Is patient fasting? N Anion Gap 12.0 mmol/L 8.0-16.0 [facility] ([facility]) Is patient fasting? N Non-Aa GFR Laboratory test result [facility] ([facility]) Is patient fasting? N Afr Amer GFR Laboratory test result [facility] ([facility]) Is patient fasting? N ID Date Data Source [id number] 04/15/2021 08:39:00 AM EDT [facility] ([facility]) Name Value Range Interpretation Code Description Data Rufina rce(s) Supporting Document(s) Thyroxine (T4) free [Mass/volume] in Serum or Plasma 0.85 ng/dL 0.93-1.70 Below low normal [facility] ([facility]) Is patient fasting? N Thyrotropin [Units/volume] in Serum or Plasma 5.46 uIU/mL 0. 47-5.01 Above high normal [facility] ([facility]) Is patient fasting? N ID Date Data Source [id number] 04/15/2021 08:39:00 AM EDT [facility] ([facility]) Name Value Range Interpretation Code Description Data Rufina rce(s) Supporting Document(s) CBC W/Automated Diff Laboratory test result [facility] ([facility]) Is patient fasting? N WBC 7.7 10^3/uL 4.2-11.0 [facility] ([facility]) Is patient fasting? N RBC 4.43 10^6/uL 4.50-6.30 Below low normal [facility] ([facility]) Is patient fasting? N Hemoglobin 14.1 g/dL 14.0-16.0 [facility] ([facility]) Is patient fasting? N MCH 31.8 pg 27.0-34.0 [facility] ([facility]) Is patient fasting? N Hematocrit 44.0 % 41.0-51.0 [facility] ([facility]) Is patient fasting? N MCV 99.3 fL 80.0-94.0 Above high normal [facility] ([facility]) Is patient fasting? N RDW 13.2 % 11.5-14.8 [facility] ([facility]) Is patient fasting? N MCHC 32.0 g/dL 31.0-36.0 [facility] ([facility]) Is patient fasting? N Platelets 229 10^3/uL 150-450 [facility] ([facility]) Is patient fasting? N Neut 61.6 % 37.0-80.0 [facility] ([facility]) Is patient fasting? N MPV 11.7 fL 7.4-10.4 Above high normal [facility] ([facility]) Is patient fasting? N [place] 10.2 % 3.0-8.0 Above high normal [facility] ([facility]) Is patient fasting? N Lymph 19.1 % 25.0-40.0 Below low normal [facility] ( [facility]) Is patient fasting? N Eos 7.7 % 0.0-7.0 Above high normal [facility] ([facility]) Is patient fasting? N Baso 0.9 % 0.0-2.0 [facility] ([facility]) Is patient fasting? N %Ig 0.5 % 0.0-0.0 Above high normal [facility] ([facility]) Is patient fasting? N #Neut 4.71 10^3/uL 2.00-6.90 [facility] ([facility]) Is patient fasting? N %NRBC 0.0 % 0.0-0.0 [facility] ([facility]) Is patient fasting? N #[place] 0.78 10^3/uL 0.00-0.90 [facility] ([facility]) Is patient fasting? N #Lymph 1.46 10^3/uL 0.60-3.40 [facility] ([facility]) Is patient fasting? N #Eos 0.59 10^3/uL 0.00-0.70 [facility] ([facility]) Is patient fasting? N #Ig 0.04 10^3/uL 0.00-0.10 [facility] ([facility]) Is patient fasting? N #Baso 0.07 10^3/uL 0.00-0.20 [facility] ([facility]) Is patient fasting? N #NRBC 0.00 10^3/uL 0.00-0.00 [facility] ([facility]) Is patient fasting? N Manual Diff Laboratory test result M [facility] ([facility]) Is patient fasting? N RBC Morph Laboratory test result [facility] ([facility]) Is patient fasting? N ID Date Data Source [id number] 04/15/2021 08:39:00 AM EDT [facility] ([facility]) Name Value Range Interpretation Code Description Data Rufina rce(s) Supporting Document(s) Cholesterol 196 mg/dL 131-200 [facility] ([facility]) Is patient fasting? N Cve Panel Laboratory test result [facility] ([facility]) Is patient fasting? N LDL 112 mg/dL 65-175 [facility] ([facility]) Is patient fasting? N Triglycerides 173 mg/dL 35-160 Above high normal [facility] ([facility]) Is patient fasting? N HDL 57 mg/dL 29-86 [facility] ([facility]) Is patient fasting? N LDL/HDL 1.96 1.00-3.55 [facility] ([facility]) Is patient fasting? N Risk Factor 3.4 3.4-4.9 Below low normal [facility] ([facility]) Is patient fasting? N ID Date Data Source [id number] 04/16/2021 03:56:00 PM EDT Name Value Range Interpretation Code Description Data Rufina rce(s) Supporting Document(s) Prostate specific Ag [Mass/volume] in Serum or Plasma 0.52 ng/mL 0.00 - 4.00 \\BLDo\\PSA INTERPRETA TION\\BLDx\\ The PSA assay should not be used alone for a screening test or diagnosis for presence or absence of malignant disease. Predictions of disease recurrence should not be based solely on values obtained from serial patient serum values. The PSA result was determined by "[employer]", on the [employer] EVETTE 6000. Values obtained with different assay methods or kits cannot be used interchangeably. ID Date Data Source [id number] 04/15/2021 10:07:00 PM EDT Name Value Range Interpretation Code Description Data Rufina rce(s) Supporting Document(s) COMPREHENSIVE METABOLIC PANEL COMPREHENSIVE METABOLIC PANEL Sodium [Moles/volume] in Serum or Plasma 136 mEq/L 134 - 153 Potassium [Moles/volume] in Serum or Plasma 4.4 mEq/L 3.6 - 5.0 Chloride [Moles/volume] in Serum or Plasma 97 mEq/L 98 - 107 L Carbon dioxide, total [Moles/volume] in Serum or Plasma 27 MEQ/L 22 - 30 Glucose [Mass/volume] in Serum or Plasma 73 MG/DL 70 - 99 BUN 32 MG/DL 7 - 21 [facility] Creatinine [Mass/volume] in Serum or Plasma 0.9 MG/DL 0.7 - 1.5 BUN/CREAT 36 8 - 27 H [facility] Protein [Mass/volume] in Serum or Plasma 7.3 G/DL 6.3 - 8.2 Albumin [Mass/volume] in Serum or Plasma 4.2 G/DL 3.9 - 5.0 Globulin [Mass/volume] in Serum by calculation 3.1 GM/DL 2.4 - 3.2 A/G RATIO 1.4 0.8 - 2.0 [facility] Calcium [Mass/volume] in Serum or Plasma 9.8 MG/DL 8.4 - 10.2 Bilirubin.total [Mass/volume] in Serum or Plasma <0.7 MG/DL 0.2 - 1.3 Alkaline phosphatase [Enzymatic activity/volume] in Serum or Plasma 73 U/L 38 - 126 Aspartate aminotransferase [Enzymatic activity/volume] in Serum or Plasma 19 U/L 5 - 40 Alanine aminotransferase [Enzymatic activity/volume] in Seru m or Plasma 14 U/L 7 - 56 Anion gap 3 in Serum or Plasma 12.0 mmol/L 8.0 - 16.0 AGE 80 yrs [facility] al NON-AA GFR >60 mL/min [facility] ital AFR AMER GFR >60 mL/min [facility] Male GFR In terprentation 20-49 yrs >60 mL/min Normal 50-59 yrs >56 mL/min Normal 60-69 yrs >49 mL/min Normal 70-79yrs >42 mL/min Normal 80 and above >35 mL/min Normal Female GFR Interpretation 20-39 yrs >60 mL/min Normal 40-49 yrs >58 mL/min Normal 50-59 yrs >51 mL/min Normal 60-69 yrs >45 mL/min Normal 70-79 yrs >39 mL/min Normal 80 and above >32 mL/min Normal ID Date Data Source [id number] 04/15/2021 10:07:00 PM EDT Name Value Range Interpretation Code Description Data Rufina rce(s) Supporting Document(s) CVE PANEL [facility] LIPID PANEL Cholesterol [Mass/volume] in Serum or Plasma 196 MG/DL 131 - 200 Deprecated Triglyceride [Mass/volume] in Serum or Plasma 173 MG/DL 3 5 - 160 H HDL 57 MG/DL 29 - 86 [facility] Cholesterol in LDL [Mass/volume] in Serum or Plasma by Direc t assay 112 mg/dL 65 - 175 Cholesterol.total/Cholesterol in HDL [Mass Ratio] in Serum o r Plasma 3.4 3.4 - 4.9 L LDL/HDL 1.96 1.00 - 3.55 [facility] ital CVE RISK CHOL/HDL LDL/HDLMEN: 1/2 AVERAGE 3.43 1.00 AVERAGE 4.97 3.55 2X AVERAGE 9.55 6.25 3X AVERAGE 23.99 7.99WOMEN: 1/2 AVERAGE 3.27 1.47 AVERAGE 4.44 3.22 2X AVERAGE 7.05 5.03 3X AVERAGE 11.04 6.14 ID Date Data Source [id number] 04/15/2021 09:33:00 PM EDT Name Value Range Interpretation Code Description Data Rufina rce(s) Supporting Document(s) Thyrotropin [Units/volume] in Serum or Plasma by Detec tion limit <= 0.05 mIU/L 5.46 uIU/mL 0.47 - 5.01 H ID Date Data Source [id number] 04/15/2021 09:33:00 PM T Name Value Range Interpretation Code Description Data Rufina rce(s) Supporting Document(s) Thyroxine (T4) free index in Serum or Plasma by calculation 0.85 NG/DL 0.93 - 1.70 L ID Date Data Source [id number] 04/15/2021 03:14:00 PM EDT Name Value Range Interpretation Code Description Data Rufina rce(s) Supporting Document(s) CBC W/AUTOMATED DIFF COMPLETE BLOOD COUNT Leukocytes [#/volume] in Blood by Automated count 7.7 10^3/uL 4.2 - 1 1.0 Erythrocytes [#/volume] in Blood by Automated count 4.43 10^6/uL 4. 50 - 6.30 L Hemoglobin [Mass/volume] in Blood 14.1 g/dL 14.0 - 16.0 Hematocrit [Volume Fraction] of Blood by Automated count 44.0 % 4 1.0 - 51.0 Erythrocyte mean corpuscular volume [Entitic volume] by Auto mated count 99.3 fL 80.0 - 94.0 H Erythrocyte mean corpuscular hemoglobin [Entitic mass] by Automated count 31.8 pg 27.0 - 34.0 Erythrocyte mean corpuscular hemoglobin concentration [Mass/volume] by Automated count 32.0 g/dL 31.0 - 36.0 Erythrocyte distribution width [Ratio] by Automated count 13.2 % 11.5 - 14.8 Platelets [#/volume] in Blood by Automated count 229 10^3/uL 150 - 45 0 Platelet mean volume [Entitic volume] in Blood by Automated count 11.7 fL 7.4 - 10.4 H Neutrophils/100 leukocytes in Blood by Automated count 61.6 % 37. 0 - 80.0 Lymphocytes/100 leukocytes in Blood by Manual count 19.1 % 25.0 - 40.0 L Monocytes/100 leukocytes in Blood by Automated count 10.2 % 3.0 - 8.0 H Eosinophils/100 leukocytes in Blood by Automated count 7.7 % 0.0 - 7.0 H Basophils/100 leukocytes in Blood by Automated count 0.9 % 0.0 - 2.0 %IG 0.5 % 0.0 - 0.0 [facility] %NRBC 0.0 % 0.0 - 0.0 [facility] al Neutrophils [#/volume] in Blood by Automated count 4.71 10^3/uL 2.00 - 6.90 Lymphocytes [#/volume] in Blood by Automated count 1.46 10^3/uL 0.60 - 3.40 Monocytes [#/volume] in Blood by Automated count 0.78 10^3/uL 0.00 - 0.90 Eosinophils [#/volume] in Blood by Automated count 0.59 10^3/uL 0.00 - 0.70 Basophils [#/volume] in Blood by Automated count 0.07 10^3/uL 0.00 - 0.20 #IG 0.04 10^3/uL 0.00 - 0.10 [facility] #NRBC 0.00 10^3/uL 0.00 - 0.00 [facility] MANUAL DIFF NOT INDICATED RBC MORPH NOT INDICATED [facility] Procedure Social History No Information Vital Signs ID Date Data Source UNK Name Value Range Interpretation Code Description Data Source(s) Respiratory rate 12 /min 12 /min [facility] Body height 69 [in_i] 69 [in_i] [facility] ([facility]) 5'9" Body weight 140.00 [lb_av] 140.00 [lb_av] [facility] T ([facility]) Body mass index (BMI) [Ratio] 20.7 kg/m2 20.7 k g/m2 [facility] ([facility]) [place] body weight 160 [lb_av] 160 [lb_av] [facility] T ([facility]) Body weight 140.00 [lb_av] 140.00 [lb_av] [facility] ([facility]) Body mass index (BMI) [Ratio] 20.7 kg/m2 20.7 k g/m2 [facility] ([facility]) [place] body weight 160 [lb_av] 160 [lb_av] [facility] ([facility]) Respiratory rate 12 /min 12 /min [facility] ( [facility]) Body height 69 [in_i] 69 [in_i] [facility] ([facility]) 5'9" Systolic blood pressure 108 mm[Hg] 108 mm[Hg] [facility] ([facility]) Diastolic blood pressure 60 mm[Hg] 60 mm[Hg] [facility] ([facility]) Heart rate 68 /min 68 /min [facility] ([facility]) Body temperature 96.2 [degF] 96.2 [degF] [facility] Respiratory rate 18 /min 18 /min [facility] ( [facility]) Oxygen saturation in Arterial blood by Pulse oximetry 99 % 99 % [facility] ([facility]) Body weight 141.00 [lb_av] 141.00 [lb_av] [facility] T ([facility]) Body weight 63.958 kg 63.958 kg [facility] ([facility]) Respiratory rate 12 /min 12 /min [facility] ( [facility]) Body height 69 [in_i] 69 [in_i] [facility] ([facility]) 5'9" Body weight 140.00 [lb_av] 140.00 [lb_av] [facility] T ([facility]) Body mass index (BMI) [Ratio] 20.7 kg/m2 20.7 k g/m2 [facility] ([facility]) [place] body weight 160 [lb_av] 160 [lb_av] [facility] ([facility], ) Respiratory rate 12 /min 12 /min [facility] ( [facility], ) Body height 69 [in_i] 69 [in_i] [facility] ([facility]) 5'9" Body weight 140.00 [lb_av] 140.00 [lb_av] [facility] ([facility]) Body mass index (BMI) [Ratio] 20.7 kg/m2 20.7 k g/m2 [facility] ([facility]) [place] body weight 160 [lb_av] 160 [lb_av] [facility] ([facility]) Body mass index (BMI) [Ratio] 20.7 kg/m2 20.7 k g/m2 [facility] ([facility]) Respiratory rate 12 /min 12 /min [facility] ( [facility]) Body height 69 [in_i] 69 [in_i] [facility] ([facility]) 5'9" Body weight 140.00 [lb_av] 140.00 [lb_av] [facility] T ([facility]) [place] body weight 160 [lb_av] 160 [lb_av] [facility] T ([facility])
[2021-09-04] MEDS ORDERED: METO1TAB87 PO (16:09)
[2021-09-04 18:24] LABS: BASO % 0.4 % (0.0-1.0); EOS # 0.1 10^3/uL (0.0-0.5); EOS % 0.8 % (0.0-3.0); HEMATOCRIT 40.8 % (42.0-52.0); HEMOGLOBIN 13.3 g/dl (13.5-17.5); LYMPH # 1.1 10^3/uL (1.5-5.0); LYMPH % 14.9 % (24.0-44.0); MEAN CORPUSCULAR HEMOGLOBIN 31.9 pg (27.0-33.0); MEAN CORPUSCULAR HGB CONC 32.6 g/dl (32.0-36.5); MEAN CORPUSCULAR VOLUME 97.8 fl (80.0-96.0); MONO # 0.8 10^3/uL (0.0-0.8); MONO % 11.2 % (2.0-8.0); NEUTROPHILS # 5.3 10^3/uL (1.5-8.5); NEUTROPHILS % 72.3 % (36.0-66.0); PLATELET COUNT, AUTOMATED 166 10^3/uL (150-450); RED BLOOD COUNT 4.17 10^6/uL (4.30-6.10); WHITE BLOOD COUNT 7.3 10^3/uL (4.0-10.0)
[2021-09-04 18:54] LABS: CARBAMAZEPINE (TEGRETOL) LEVEL 7.5 UG/ML (4.0-10.0); VALPROIC ACID (DEPAKOTE) 51.5 UG/ML (50.0-100.0)
--- NOTE | 2021-09-04 18:55 | REPVR ---
PROCEDURE INFORMATION: Exam: CT Head Without Contrast Exam date and time: 09/04/2021 6:22 PM Age: 81 years old Clinical indication: Injury or trauma; Fall; Blunt trauma (contusions or hematomas) TECHNIQUE: Imaging protocol: Computed tomography of the head without contrast. Radiation optimization: All CT scans at this facility use at least one of these dose optimization techniques: automated exposure control; mA and/or kV adjustment per patient size (includes targeted exams where dose is matched to clinical indication); or iterative reconstruction. COMPARISON: CT Head without contrast 03/12/2019 9:45 AM FINDINGS: Brain: There is no acute intracranial hemorrhage, cerebral edema, or midline shift. Chronic microvascular ischemic changes are seen in the periventricular white matter. Severe cerebral and mild cerebellar volume loss is present. Cerebral ventricles: Moderate ex vacuo dilation of the lateral and third ventricles is noted. Superimposed normal pressure hydrocephalus may be present. Ventricular size appears similar to the prior exam. Paranasal sinuses: There is no acute sinusitis. Mastoid air cells: The mastoid air cells are clear. Orbital cavity: The included orbital structures are unremarkable. Vasculature: Atherosclerotic calcifications are seen involving the cavernous carotid arteries. Bones/joints: A chronic left zygomatic arch fracture is noted. Soft tissues: Unremarkable. IMPRESSION: 1. No acute intracranial abnormality. 2. Chronic findings as discussed above. Electronically signed by: Oli Rm On 09/04/2021 18:55:25 PM
--- NOTE | 2021-09-04 18:56 | REP ---
INDICATION: trauma. COMPARISON: Left hip of 11/01/2015 TECHNIQUE: AP pelvis two views left hip FINDINGS: The left hip prosthesis is unchanged in alignment and position. No definite abnormal periprosthetic lucency seem to have developed. Degenerative changes are seen involving the right hip. There is no evidence of an acute fracture, dislocation, or subluxation. The small lucencies seen in the greater trochanter of the left femur region but is seen only on one view and incompletely. IMPRESSION: Findings on the left as described above. No definite acute fracture, however, the patient has severe pain consider CT. <Electronically signed by Mika Ruffin > 09/04/21 [id number]
--- NOTE | 2021-09-04 18:58 | REP ---
INDICATION: CHEST PAIN. COMPARISON: 04/18/2019 TECHNIQUE: Portable FINDINGS: The technique utilized in obtaining the radiograph has magnified the cardiac silhouette and accentuated the interstitial markings. The cardiomediastinal silhouette is unchanged. There is mild cardiomegaly accentuated by technique. There is no chest significant change in appearance of the lung sparks. Mild fibrotic changes are noted status quo. No definite acute patchy parenchymal opacities or pleural effusions seem to have developed on this portable exam. There is no significant change in appearance of the osseous structures. IMPRESSION: Stable appearing chronic changes. <Electronically signed by Mika Ruffin > 09/04/21 [id number]
--- NOTE | 2021-09-04 18:59 | REP ---
INDICATION: trauma. COMPARISON: None. TECHNIQUE: Four views FINDINGS: No acute fracture or destructive osseous lesion. The mortise is intact. IMPRESSION: No evidence of an acute osseous abnormality. <Electronically signed by Mika Ruffin > 09/04/21 [id number]
--- NOTE | 2021-09-04 18:59 | REPVR ---
PROCEDURE INFORMATION: Exam: CT Cervical Spine Without Contrast Exam date and time: 09/04/2021 6:22 PM Age: 81 years old Clinical indication: Injury or trauma; Fall; Blunt trauma TECHNIQUE: Imaging protocol: Computed tomography images of the cervical spine without contrast. Radiation optimization: All CT scans at this facility use at least one of these dose optimization techniques: automated exposure control; mA and/or kV adjustment per patient size (includes targeted exams where dose is matched to clinical indication); or iterative reconstruction. COMPARISON: CT Head without contrast 03/12/2019 9:45 AM FINDINGS: Bones/joints: There is reversal of the normal cervical lordosis. Minor anterolisthesis of C2 on C3 and C3 on C4 is present due to facet arthropathy. There is minor retrolisthesis of C5 on C6 and C6 on C7. No acute fracture is identified. Discs/Spinal canal/Neural foramina: Severe degenerative changes of the cervical spine are present. There is moderate/severe spinal canal stenosis is present at C3-C4 and C5-C6. Multilevel neural foraminal narrowing from uncinate spurring and facet arthropathy is noted. Lungs: Lung apices are clear. Vasculature: Atherosclerotic calcifications are present at the carotid bifurcations. Soft tissues: Unremarkable. IMPRESSION: 1. No acute abnormality. 2. Chronic findings as discussed above. Electronically signed by: Oli Rm On 09/04/2021 18:59:03 PM
[2021-09-04 19:01] LABS: ALT/SGPT 27 U/L (12-78); BILIRUBIN,DIRECT 0.1 MG/DL (0.0-0.2); BILIRUBIN,TOTAL 0.3 MG/DL (0.2-1.0); BLOOD UREA NITROGEN 22 MG/DL (7-18); CARBON DIOXIDE LEVEL 30 MEQ/L (21-32); CHLORIDE LEVEL 103 MEQ/L (98-107); CK-MB VALUE MASS 1.1 NG/ML (<3.6); CPK CREATINE PHOSPHOKINASE 57 U/L (39-308); CREATININE FOR GFR 0.93 MG/DL (0.70-1.30); FREE T4 0.91 NG/DL (0.76-1.46); GLOMERULAR FILTRATION RATE > 60.0 (>42); GLUCOSE, FASTING 98 MG/DL (70-100); MB/CK RELATIVE INDEX 1.93 (< OR =4); POTASSIUM SERUM 4.8 MEQ/L (3.5-5.1); SODIUM LEVEL 138 MEQ/L (136-145); TOTAL PROTEIN 6.7 GM/DL (6.4-8.2); TROPONIN I < 0.02 NG/ML (< 0.10)
--- NOTE | 2021-09-04 19:14 | ECGEPIP ---
[facility] - ED Test Date: 2021-09-04 Pat Name: LINO FAY Department: Room: - Gender: Male Telehealth Nurse: JULITO : 1940 Requested By: MONISHA Gan Order Number: [id number] Reading MD: Diann Garrido Measurements Intervals [place] Rate: 84 P: 70 NV: 158 QRS: 70 QRSD: 82 T: 65 QT: 378 QTc: 446 Interpretive Statements Normal sinus rhythm similar 03/12/19 Electronically Signed on 09-04-2021 19:13:51 EDT by Diann Garrido
[2021-09-04] MEDS ORDERED: carBAMazepine 200MG TABLET PO SCH (21:00)
[2021-09-04 21:53] LABS: RSV AMPLIFICATION NEGATIVE (NEGATIVE)
--- NOTE | 2021-09-04 22:19 | REPVR ---
PROCEDURE INFORMATION: Exam: CT Left Lower Extremity Without Contrast, Hip Exam date and time: 09/04/2021 8:07 PM Age: 81 years old Clinical indication: Injury or trauma; Fall; Blunt trauma; Hip; Left TECHNIQUE: Imaging protocol: CT of the Left lower extremity without contrast was performed. Exam focused on the hip. Radiation optimization: All CT scans at this facility use at least one of these dose optimization techniques: automated exposure control; mA and/or kV adjustment per patient size (includes targeted exams where dose is matched to clinical indication); or iterative reconstruction. 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 A partially united fragment is noted along the anterior aspect of the proximal femur. There is no evidence of acute fracture. Soft tissues: Normal. Bowel: There is constipation with an impaction of solid stool in the rectum. IMPRESSION: 1. 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 2. Constipation and impaction with solid stool. 3. No evidence of acute fracture. Electronically signed by: Ranulfo Salinas On 09/04/2021 22:19:27 PM
--- OUTSIDE RECORDS SUMMARY | 2021-09-04 22:49 | CCD ---
Author Author [facility] Organization [facility] Address Unknown Phone Unavailable Care Team Providers Care Wood Scaler Name Role Phone NELLY BLAKE MD Unavailable [...] Unavailable BLAKE, NELLY MD Unavailable Unavailable BLAKE, ENLLY MD Unavailable Unavailable BLAKE, NELYL MD Unavailable Unavailable BLAKE, NELLY MD Unavailable Unavailable BLAKE, NELLY MD Unavailable Unavailable BALKE, NELLY MD Unavailable Unavailable BLAKE, NELLY MD Unavailable Unavailable BLAKE, NELLY MD Unavailable Unavailable BLAKE, NELLY MD Unavailable Unavailable BLAKE, NELLY MD Unavailable Unavailable BLAKE, NELLY MD Unavailable Unavailable BLAKE, NELLY MD Unavailable Unavailable BLAKE, NELLY MD Unavailable Unavailable BLAKE, NELLY MD Unavailable Unavailable BALKE, NELLY MD Unavailable Unavailable BLAKE, NELLY MD Unavailable Unavailable BLAKE, NELLY MD Unavailable Unavailable BLAKE, NELLY MD Unavailable Unavailable BLAKE, NELLY MD Unavailable Unavailable BLAKE, NELLY MD Unavailable Unavailable BLAKE, NELLY MD Unavailable Unavailable BLAKE, NELLY MD Unavailable Unavailable BLAKE, NELLY MD Unavailable Unavailable BALKE, NELLY MD Unavailable Unavailable BLAKE, NELLY MD [...] Unavailable Unavailable Jarvis Galeas MD Unavailable Unavailable Jarvsi Galeas MD Unavailable Unavailable Jarvis Galeas MD [...] Unavailable Unavailable Jarvis Galeas MD Unavailable Unavailable Jravis Galeas MD Unavailable Unavailable Jarvis Galeas MD [...] is protected by Article 27-F of the [facility] Public Health law. If you continue you may have access to information: Regarding HIV / AIDS; Provided by facilities licensed or operated by the [facility] Office of Mental Health; or Provided by the [facility] Office for People With Developmental Disabilities. If such information is present, then the following [facility] mandated warning applies: This information has [...] law may result in a fine or senior care sentence or both. A general authorization for the release of medical or other information is NOT sufficient authorization for further disc losure. Allergies and Adverse Reactions Type Description Substance Reaction Status Data Source(s ) No Known Allergies No Known Allergies [facility] Family History Family Member Name Family Member Gender Family Member Status Date o f Status Description Data Source(s) Unknown Female Problem [facility] ([facility]) Encounters Encounter Providers Location Date Indications Data Source(s ) Office Visit Attender: Ariel Galeas MD [facility] 08/18/2021 12:30:00 PM EDT [facility] ([facility] Office Visit Attender: Ariel Galeas MD [facility] 05/06/2021 02:00:00 PM EDT [facility] ([facility]) Outpatient Attender: NELLY BLAKE MDConsultant: NELLY Marcial MD 04/15/2021 08:04:00 AM EDT - 04/15/2021 08:04:00 AM EDT [facility] Outpatient Attender: NELLY BLAKE MD [facility] 04/15/2021 0 8:00:00 AM EDT [facility] ([facility]) Office Visit Attender: Ariel Galeas MD [facility] 01/20/2021 09:30:00 AM EST [facility] ([facility]) Office Visit Attender: Ariel Galeas MD [facility] 10/18/2020 10:45:00 AM EST [facility] ([facility]) Office Visit Attender: Ariel Galeas MD [facility] 07/09/2020 12:45:00 PM EDT [facility] ([facility]) Outpatient Attender: NELLY BLAKE MDConsultant: NELLY Marcial MD 07/04/2020 02:07:00 PM EDT - 07/04/2020 02:07:00 PM EDT [facility] Medications Medication Brand Name Start Date Product [...] 12:00:00 AM EDT ORAL active M [facility]ENT ([facility]) 25 mcg (1,000 unit) 04/16/2021 12:00:00 AM [...] Seat 09/30/2020 12:00:00 AM EST active [facility] ([facility]) 4 Wheeled Walker 09/27/2020 12:00:00 AM EST c ompleted [facility] ([facility]) 50 mcg 07/29/2020 12:00:00 AM EDT tablet [...] type / Coverage type Policy ID Covered republican ID Covered republican's relationship to monsivais Policy Monsivais Plan Information [facility] MEDICAID [id number] SP [id number] K MEDICARE [id number] SP [id number] MEDICARE PART A [facility] [id number] 18 [id number] MEDICAID [id number] SP [id number] [facility] [id number] SP [id number] VNA HOMECARE OPTIONS [id number] SP [id number] MEDICARE C [id number] S [id number] MEDICAID M [id number] S [id number] VNA HOMECARE OPTIONS [id number] SP [id number] Medicare Part A [place] Medicare Primary [id number] Self [id number] VNA HOMECARE OPTIONS [id number] SP [id number] [facility] PART B C [id number] S [id number] Medicare Part A [place] Medicare Primary [id number] Self [id number] MEDICARE [id number] SP [id number] A Medicare Part A [place] Medicare Primary [id number] Self [id number] Medicare Part A [place] Medicare Primary [id number] Self 11 [id number] MEDICARE PART A [facility] [id number] 18 [id number] Medicare Part A [place] Medicare Primary [id number] Self 11 [id number] Medicare Part A [place] Medicare Primary [id number] Self 11 [id number] Medicare Part A [place] Medicare Primary [id number] Self 11 [id number] Medicare Part A [place] Medicare Primary [id number] Self 11 [id number] Medicaid [facility] Medicaid [id number] Self [id number] Medicare Part A [place] Medicare Primary [id number] Self 11 [id number] MEDICAID [facility] [id number] C [id number] MEDICAID [id number] SP [id number] Medicaid [facility] Medicaid [id number] Self Medicare Part A [place] Medicare Primary [id number] Self MEDICARE C [id number] S [id number] A MEDICAID -CLINIC [id number] 18 [id number] MEDICARE PART A-CLINIC [id number] 18 [id number] MEDICAID-PHYSICIAN [id number] 18 C [id number] MEDICAID-O/P RAD [id number] MEDICARE PART B-PHYSICIAN [id number] 18 [id number] MEDICAID-O/P [id number] 18 [id number] MEDICARE -O/P [id number] 18 [id number] MEDICARE PART A-CLINIC [id number] 18 [id number] A Problems, Conditions, and Diagnoses Code Display Name Description Problem Type Effective Dates Data Source(s) Z125 Encounter for screening for malignant ne oplasm of prostate Encounter for screening for malignant neoplasm of prostate Diagnosis 08:04:00 AM EDT [facility] L12061 Personal history of nicotine dependence Personal history of nicotine dependence Diagnosis 04/15/2021 08:04:00 AM EDT [facility] G309 Alzheimer's disease, unspecified Alzheimer's dis ease, unspecified Diagnosis 04/15/2021 08:04:00 AM EDT [facility] D649 Anemia, unspecified Anemia, unspecified Diagnosis 0 04/15/2021 08:04:00 AM EDT [facility] E559 Vitamin D deficiency, unspecified Vitamin D defi ciency, unspecified Diagnosis 04/15/2021 08:04:00 AM EDT [facility] K219 Gastro-esophageal reflux disease without esophagitis Gastro-esophageal reflux disease without esophagitis Diagnosis 04/15/2021 08:04:00 AM ED T [facility] I10 Essential (primary) hypertension Essential (primary) h ypertension Diagnosis 04/15/2021 08:04:00 AM EDT [facility] E785 Hyperlipidemia, unspecified Hyperlipidemia, unspecifie d Diagnosis 04/15/2021 08:04:00 AM EDT [facility] E039 Hypothyroidism, unspecified Hypothyroidism, unspecifie d Diagnosis 04/15/2021 08:04:00 AM T [facility] Z0000 Encounter for general adult medical exam ination without abnormal findings Encounter for general adult medical examination without abnormal findings Diagnosis 04/15/2021 08:04:[address] [facility] Surgeries/Procedures Procedure Description Date Indications Data Source(s) PHYSICIAN TELEPHONE EVALUATION 11-20 MIN 08/18/2021 12 :00:00 AM EDT [facility] ([facility]) PHYSICIAN TELEPHONE EVALUATION 11-20 MIN 05/06/2021 12 :00:00 AM EDT [facility] ([facility]) Brief Emotional/Behav Assessment W/ Scoring Doc Per Standard Inst 04/15/2021 12:00:00 AM EDT [facility] ([facility]) Admin Patient Focused Health Risk Assessment Instrument 04/15/2021 12:00:00 AM ED[facility] PHYSICIAN TELEPHONE EVALUATION 11-20 MIN 01/20/2021 12 :00:00 AM EST [facility] ([facility] ELECTROENCEPHALOGRAM W/REC AWAKE&ASLEEP 08/22/2020 12: 00:00 AM EDT [facility] ([facility] ELECTROENCEPHALOGRAM W/REC AWAKE&ASLEEP 08/22/2020 12: 00:00 AM EDT [facility] ([facility] MRI BRAIN BRAIN STEM W/O CONTRAST MATERIAL 07/20/2020 12:00:00 AM EDT [facility] ([facility] MRI BRAIN BRAIN STEM W/O CONTRAST MATERIAL 07/20/2020 12:00:00 AM EDT [facility] ([facility] Results ID Date Data Source [id number] 04/15/2021 08:39:00 AM EDT [facility] ([facility]) Name Value Range Interpretation Code Description Data Rufina rce(s) Supporting Document(s) Prostate specific Ag [Mass/volume] in Serum or Plasma 0.52 ng/mL 0.00 -4.00 [facility] ([facility]) Is patient fasting? N ID Date Data Source [id number] 04/15/2021 08:39:00 AM EDT [facility] ([facility]) Name Value Range Interpretation Code Description Data Rufina rce(s) Supporting Document(s) Comprehensive Metabo Laboratory test result [facility] ([facility]) Is patient fasting? N Potassium 4.4 meq/L 3.6-5.0 [facility] ([facility]) Is patient fasting? N Sodium 136 meq/L 134-153 [facility] ([facility]) Is patient fasting? N Chloride 97 meq/L 98-107 Below low normal [facility] ( [facility]) Is patient fasting? N Glucose 73 mg/dL 70-99 [facility] ([facility]) Is patient fasting? N Co2 27 meq/L 22-30 [facility] ([facility]) Is patient fasting? N Creatinine 0.9 mg/dL 0.7-1.5 [facility] ([facility]) Is patient fasting? N BUN/Creat 36 8-27 Above high normal [facility] ([facility]) Is patient fasting? N BUN 32 mg/dL 7-21 Above high normal [facility] ([facility]) Is patient fasting? N Total Protein 7.3 g/dL 6.3-8.2 [facility] ([facility]) Is patient fasting? N Albumin 4.2 g/dL 3.9-5.0 [facility] ([facility]) Is patient fasting? N A/G Ratio 1.4 0.8-2.0 [facility] ([facility]) Is patient fasting? N Calcium 9.8 mg/dL 8.4-10.2 [facility] ([facility]) Is patient fasting? N Globulin 3.1 GM/DL 2.4-3.2 [facility] ([facility]) Is patient fasting? N Alkaline Phos 73 U/L 38-126 [facility] ([facility]) Is patient fasting? N Total Bili Laboratory test result 0.2-1.3 ME DENT ([facility]) Is patient fasting? N SGPT/Alt 14 U/L 7-56 [facility] ([facility]) Is patient fasting? N Sgot/Ast 19 U/L 5-40 [facility] ([facility]) Is patient fasting? N Age 80 yrs [facility] ([facility]) Is patient fasting? N Anion Gap 12.0 mmol/L 8.0-16.0 [facility] ([facility]) Is patient fasting? N Non-Aa GFR Laboratory test result [facility] ([facility]) Is patient fasting? N Afr Amer GFR Laboratory test result [facility] ([facility]) Is patient fasting? N ID Date Data Source [id number] 04/15/2021 08:39:00 AM EDT [facility] ([facility]) Name Value Range Interpretation Code Description Data Rufina rce(s) Supporting Document(s) Thyroxine (T4) free [Mass/volume] in Serum or Plasma 0.85 ng/dL 0.93-1.70 Below low normal [facility] ([facility]) Is patient fasting? N Thyrotropin [Units/volume] in Serum or Plasma 5.46 uIU/mL 0. 47-5.01 Above high normal [facility] ([facility]) Is patient fasting? N ID Date Data Source [id number] 04/15/2021 08:39:00 AM EDT [facility] ([facility]) Name Value Range Interpretation Code Description Data Rufina rce(s) Supporting Document(s) CBC W/Automated Diff Laboratory test result [facility] ([facility]) Is patient fasting? N WBC 7.7 10^3/uL 4.2-11.0 [facility] ([facility]) Is patient fasting? N RBC 4.43 10^6/uL 4.50-6.30 Below low normal [facility] ([facility]) Is patient fasting? N Hemoglobin 14.1 g/dL 14.0-16.0 [facility] ([facility]) Is patient fasting? N MCH 31.8 pg 27.0-34.0 [facility] ([facility]) Is patient fasting? N Hematocrit 44.0 % 41.0-51.0 [facility] ([facility]) Is patient fasting? N MCV 99.3 fL 80.0-94.0 Above high normal [facility] ([facility]) Is patient fasting? N RDW 13.2 % 11.5-14.8 [facility] ([facility]) Is patient fasting? N MCHC 32.0 g/dL 31.0-36.0 [facility] ([facility]) Is patient fasting? N Platelets 229 10^3/uL 150-450 [facility] ([facility]) Is patient fasting? N Neut 61.6 % 37.0-80.0 [facility] ([facility]) Is patient fasting? N MPV 11.7 fL 7.4-10.4 Above high normal [facility] ([facility]) Is patient fasting? N Gentry 10.2 % 3.0-8.0 Above high normal [facility] ([facility]) Is patient fasting? N Lymph 19.1 % 25.0-40.0 Below low normal [facility] ( [facility]) Is patient fasting? N Eos 7.7 % 0.0-7.0 Above high normal [facility] ([facility]) Is patient fasting? N Baso 0.9 % 0.0-2.0 [facility] ([facility]) Is patient fasting? N %Ig 0.5 % 0.0-0.0 Above high normal [facility] ([facility]) Is patient fasting? N #Neut 4.71 10^3/uL 2.00-6.90 [facility] ([facility]) Is patient fasting? N %NRBC 0.0 % 0.0-0.0 [facility] ([facility]) Is patient fasting? N #Gentry 0.78 10^3/uL 0.00-0.90 [facility] ([facility]) Is patient fasting? N #Lymph 1.46 10^3/uL 0.60-3.40 [facility] ([facility]) Is patient fasting? N #Eos 0.59 10^3/uL 0.00-0.70 [facility] ([facility]) Is patient fasting? N #Ig 0.04 10^3/uL 0.00-0.10 [facility] ([facility]) Is patient fasting? N #Baso 0.07 10^3/uL 0.00-0.20 [facility] ([facility]) Is patient fasting? N #NRBC 0.00 10^3/uL 0.00-0.00 [facility] ([facility]) Is patient fasting? N Manual Diff Laboratory test result M EDENT ([facility]) Is patient fasting? N RBC Morph Laboratory test result [facility] ([facility]) Is patient fasting? N ID Date Data Source [id number] 04/15/2021 08:39:00 AM EDT [facility] ([facility]) Name Value Range Interpretation Code Description Data Rufina rce(s) Supporting Document(s) Cholesterol 196 mg/dL 131-200 [facility] ([facility]) Is patient fasting? N Cve Panel Laboratory test result [facility] ([facility]) Is patient fasting? N LDL 112 mg/dL 65-175 [facility] ([facility]) Is patient fasting? N Triglycerides 173 mg/dL 35-160 Above high normal MEDE NT ([facility]) Is patient fasting? N HDL 57 mg/dL 29-86 [facility] ([facility]) Is patient fasting? N LDL/HDL 1.96 1.00-3.55 [facility] ([facility]) Is patient fasting? N Risk Factor 3.4 3.4-4.9 Below low normal [facility] ([facility]) Is patient fasting? N ID Date Data Source [id number] 04/16/2021 03:56:00 PM EDT [facility] Name Value Range Interpretation Code Description Data Rufina rce(s) Supporting Document(s) Prostate specific Ag [Mass/volume] in Serum or Plasma 0.52 ng/mL 0.00 - 4.00 [facility] \\BLDo\\PSA INTERPRETA TION\\BLDx\\ The PSA assay should not be used alone for a screening test or diagnosis for presence or absence of malignant disease. Predictions of disease recurrence should not be based solely on values obtained from serial patient serum values. The PSA result was determined by "[employer]", on the [employer] EVETTE 6000. Values obtained with different assay methods or kits cannot be used interchangeably. ID Date Data Source [id number] 04/15/2021 10:07:00 PM EDT [facility] Name Value Range Interpretation Code Description Data Rufina rce(s) Supporting Document(s) COMPREHENSIVE METABOLIC PANEL [facility] COMPREHENSIVE METABOLIC PANEL Sodium [Moles/volume] in Serum or Plasma 136 mEq/L 134 - 153 [facility] Potassium [Moles/volume] in Serum or Plasma 4.4 mEq/L 3.6 - 5.0 [facility] Chloride [Moles/volume] in Serum or Plasma 97 mEq/L 98 - 107 L [facility] Carbon dioxide, total [Moles/volume] in Serum or Plasma 27 MEQ/L 22 - 30 [facility] Glucose [Mass/volume] in Serum or Plasma 73 MG/DL 70 - 99 [facility] BUN 32 MG/DL 7 - 21 [facility] Creatinine [Mass/volume] in Serum or Plasma 0.9 MG/DL 0.7 - 1.5 [facility] BUN/CREAT 36 8 - 27 H [facility] Protein [Mass/volume] in Serum or Plasma 7.3 G/DL 6.3 - 8.2 [facility] Albumin [Mass/volume] in Serum or Plasma 4.2 G/DL 3.9 - 5.0 [facility] Globulin [Mass/volume] in Serum by calculation 3.1 GM/DL 2.4 - 3.2 [facility] A/G RATIO 1.4 0.8 - 2.0 [facility] Calcium [Mass/volume] in Serum or Plasma 9.8 MG/DL 8.4 - 10.2 [facility] Bilirubin.total [Mass/volume] in Serum or Plasma <0.7 MG/DL 0.2 - 1.3 [facility] Alkaline phosphatase [Enzymatic activity/volume] in Serum or Plasma 73 U/L 38 - 126 [facility] Aspartate aminotransferase [Enzymatic activity/volume] in Serum or Plasma 19 U/L 5 - 40 [facility] Alanine aminotransferase [Enzymatic activity/volume] in Seru m or Plasma 14 U/L 7 - 56 [facility] Anion gap 3 in Serum or Plasma 12.0 mmol/L 8.0 - 16.0 [facility] AGE 80 yrs [facility] al NON-AA GFR >60 mL/min [facility] ital AFR AMER GFR >60 mL/min [facility] Male GFR In terprentation 20-49 [...] >32 mL/min Normal ID Date Data Source [id number] 04/15/2021 10:07:00 PM EDT [facility] Name Value Range Interpretation Code Description Data Rufina rce(s) Supporting Document(s) CVE PANEL [facility] LIPID PANEL Cholesterol [Mass/volume] in Serum or Plasma 196 MG/DL 131 - 200 [facility] Deprecated Triglyceride [Mass/volume] in Serum or Plasma 173 MG/DL 3 5 - 160 H [facility] HDL 57 MG/DL 29 - 86 [facility] Cholesterol in LDL [Mass/volume] in Serum or Plasma by Direc t assay 112 mg/dL 65 - 175 [facility] Cholesterol.total/Cholesterol in HDL [Mass Ratio] in Serum o r Plasma 3.4 3.4 - 4.9 L [facility] LDL/HDL 1.96 1.00 - 3.55 [facility] ital CVE RISK CHOL/HDL LDL/HDLMEN: 1/2 AVERAGE 3.43 1.00 AVERAGE 4.97 3.55 2X AVERAGE 9.55 6.25 3X AVERAGE 23.99 7.99WOMEN: 1/2 AVERAGE 3.27 1.47 AVERAGE 4.44 3.22 2X AVERAGE 7.05 5.03 3X AVERAGE 11.04 6.14 ID Date Data Source [id number] 04/15/2021 09:33:00 PM EDT [facility] Name Value Range Interpretation Code Description Data Rufina rce(s) Supporting Document(s) Thyrotropin [Units/volume] in Serum or Plasma by Detec tion limit <= 0.05 mIU/L 5.46 uIU/mL 0.47 - 5.01 H [facility] ID Date Data Source [id number] 04/15/2021 09:33:00 PM T [facility] Name Value Range Interpretation Code Description Data Rufnia rce(s) Supporting Document(s) Thyroxine (T4) free index in Serum or Plasma by calculation 0.85 NG/DL 0.93 - 1.70 L [facility] ID Date Data Source [id number] 04/15/2021 03:14:00 PM EDT [facility] Name Value Range Interpretation Code Description Data Rufina rce(s) Supporting Document(s) CBC W/AUTOMATED DIFF [facility] COMPLETE BLOOD COUNT Leukocytes [#/volume] in Blood by Automated count 7.7 10^3/uL 4.2 - 1 1.0 [facility] Erythrocytes [#/volume] in Blood by Automated count 4.43 10^6/uL 4. 50 - 6.30 L [facility] Hemoglobin [Mass/volume] in Blood 14.1 g/dL 14.0 - 16.0 [facility] Hematocrit [Volume Fraction] of Blood by Automated count 44.0 % 4 1.0 - 51.0 [facility] Erythrocyte mean corpuscular volume [Entitic volume] by Auto mated count 99.3 fL 80.0 - 94.0 H [facility] Erythrocyte mean corpuscular hemoglobin [Entitic mass] by Automated count 31.8 pg 27.0 - 34.0 [facility] Erythrocyte mean corpuscular hemoglobin concentration [Mass/volume] by Automated count 32.0 g/dL 31.0 - 36.0 [facility] Erythrocyte distribution width [Ratio] by Automated count 13.2 % 11.5 - 14.8 [facility] Platelets [#/volume] in Blood by Automated count 229 10^3/uL 150 - 45 0 [facility] Platelet mean volume [Entitic volume] in Blood by Automated count 11.7 fL 7.4 - 10.4 H [facility] Neutrophils/100 leukocytes in Blood by Automated count 61.6 % 37. 0 - 80.0 [facility] Lymphocytes/100 leukocytes in Blood by Manual count 19.1 % 25.0 - 40.0 L [facility] Monocytes/100 leukocytes in Blood by Automated count 10.2 % 3.0 - 8.0 H [facility] Eosinophils/100 leukocytes in Blood by Automated count 7.7 % 0.0 - 7.0 H [facility] Basophils/100 leukocytes in Blood by Automated count 0.9 % 0.0 - 2.0 [facility] %IG 0.5 % 0.0 - 0.0 [facility] %NRBC 0.0 % 0.0 - 0.0 [facility] al Neutrophils [#/volume] in Blood by Automated count 4.71 10^3/uL 2.00 - 6.90 [facility] Lymphocytes [#/volume] in Blood by Automated count 1.46 10^3/uL 0.60 - 3.40 [facility] Monocytes [#/volume] in Blood by Automated count 0.78 10^3/uL 0.00 - 0.90 [facility] Eosinophils [#/volume] in Blood by Automated count 0.59 10^3/uL 0.00 - 0.70 [facility] Basophils [#/volume] in Blood by Automated count 0.07 10^3/uL 0.00 - 0.20 [facility] #IG 0.04 10^3/uL 0.00 - 0.10 [facility] #NRBC 0.00 10^3/uL 0.00 - 0.00 [facility] MANUAL DIFF NOT INDICATED [facility] RBC MORPH NOT INDICATED [facility] Procedure Social History No Information Vital Signs ID Date Data Source UNK Name Value Range Interpretation Code Description Data Source(s) Respiratory rate 12 /min 12 /min [facility] Body height 69 [in_i] 69 [in_i] [facility] ([facility]) 5'9" Body weight 140.00 [lb_av] 140.00 [lb_av] [facility] T ([facility]) Body mass index (BMI) [Ratio] 20.7 kg/m2 20.7 k g/m2 [facility] ([facility]) [place] body weight 160 [lb_av] 160 [lb_av] [facility] T ([facility]) Body weight 140.00 [lb_av] 140.00 [lb_av] [facility] T ([facility]) Body mass index (BMI) [Ratio] 20.7 kg/m2 20.7 k g/m2 [facility] ([facility]) [place] body weight 160 [lb_av] 160 [lb_av] [facility] T ([facility]) Respiratory rate 12 /min 12 /min [facility] ( [facility]) Body height 69 [in_i] 69 [in_i] [facility] ([facility]) 5'9" Systolic blood pressure 108 mm[Hg] 108 mm[Hg] M [facility] ([facility]) Diastolic blood pressure 60 mm[Hg] 60 mm[Hg] [facility] ([facility]) Heart rate 68 /min 68 /min [facility] ([facility]) Body temperature 96.2 [degF] 96.2 [degF] [facility] System) Respiratory rate 18 /min 18 /min MED[facility] ( [facility]) Oxygen saturation in Arterial blood by Pulse oximetry 99 % 99 % [facility] ([facility]) Body weight 141.00 [lb_av] 141.00 [lb_av] MEDEN T ([facility]) Body weight 63.958 kg 63.958 kg [facility] ([facility]) Respiratory rate 12 /min 12 /min [facility] ( [facility]) Body height 69 [in_i] 69 [in_i] [facility] ([facility]) 5'9" Body weight 140.00 [lb_av] 140.00 [lb_av] MEDEN T ([facility]) Body mass index (BMI) [Ratio] 20.7 kg/m2 20.7 k g/m2 [facility] ([facility]) [place] body weight 160 [lb_av] 160 [lb_av] MEDEN T ([facility]) Respiratory rate 12 /min 12 /min [facility] ( [facility], ) Body height 69 [in_i] 69 [in_i] MED[facility] ([facility]) 5'9" Body weight 140.00 [lb_av] 140.00 [lb_av] MEDEN T ([facility]) Body mass index (BMI) [Ratio] 20.7 kg/m2 20.7 k g/m2 [facility] ([facility]) [place] body weight 160 [lb_av] 160 [lb_av] MEDEN T ([facility]) Body mass index (BMI) [Ratio] 20.7 kg/m2 20.7 k g/m2 [facility] ([facility]) Body height 69 [in_i] 69 [in_i] MED[facility] ([facility]) 5'9" Body weight 140.00 [lb_av] 140.00 [lb_av] MEDEN T ([facility]) Respiratory rate 12 /min 12 /min MED[facility] ( [facility]) [place] body weight 160 [lb_av] 160 [lb_av] MEDEN T ([facility])
[2021-09-04] MEDS ORDERED: ASPI-161 PO (23:16)
[2021-09-04] MEDS ORDERED: D31000TA2 PO (23:16)
[2021-09-04] MEDS ORDERED: ACETAMINOPHEN TAB 650MG DOSE (2X325MG) PO PRN (23:35)
[2021-09-04] MEDS ORDERED: MAALOX 30 ML SUSP *UDC PO PRN (23:35)
[2021-09-04] MEDS ORDERED: MOM 30ML SUSPENSION UDC PO PRN (23:35)
--- NOTE | 2021-09-04 23:59 | HPEPDOC ---
General Date of Admission Sep 04, 2021 at 22:42 Date of Service: Sep 04, 2021 Attending Physician: CHICO DOSS MD Chief Complaint The patient is a 81-year-old male admitted with a reason for visit of Contusion Of Left Hip, Fall, Gait Disturbance. History of Present Illness History of present illness: Mr. Barajas is a 81 year old male with advanced dementia who presented to the emergency department after a witnessed fall at home this afternoon. 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 A home health worker was in the home at the time of the fall but the circumstances of the fall are not known as the nephew was not present at the time. The patient is wheelchair bound and only able to pivot and walk a few steps with assistance. It is not known whether the patient can eat solid foods or is on a pureed diet. The emergency room physician spoke to the nephew, Neel Barajas, who reported that at baseline the patient is confused and requires several attempts before he can give a simple answer. The nephew indicated that patients mentation has been deteriorating over time. While in the ED, the patient was found to have a left hip contusion without fracture. Past medical history: Advanced Dementia Seizure Disorder Hypothyroidism Hypertension Deconditioning GERD Past surgical history: Left total hip replacement Social history: Patient is a former smoker Patient does not drink alcohol or use illicit drugs Patient lives with his nephew Neel Barajas Family history: noncontributory Allergies: No known drug allergies Review of Systems: Unable to assess secondary to patient's advanced dementia Physical examination: General: A frail appearing elderly male lying in bed covered in multiple blankets. He acknowledges me when I enter the room by looking at me but is unable to answer any of my questions and tends to look at the ceiling during my evaluation. HEENT: Unable to assess EOMI. PERRLA, mucous membranes are moist and pink, no lymphadenopathy noted Cardiovascular: Regular rate and rhythm, no murmurs were appreciated, pulses 2+ throughout, capillary refill <2 seconds Pulmonary: lungs clear to auscultation, patient unable to inhale deeply when I ask him, no rhonchi or wheezes appreciated Abdomen: soft, normal bowel sounds, nontender to palpation in all four quadrants Extremities: non tender to palpation along the lateral aspect of either hip, no edema noted, hair loss visible. Patient yells out in pain when I attempt to assess ROM of left hip. The exam is limited by patient cognition. Psych: the patient is alert and oriented x 0. He does make eye contact occasionally but does not speak. Imaging 09/04/21: Ankle x ray: IMPRESSION: No evidence of an acute osseous abnormality. Cervical spine CT: IMPRESSION: No acute abnormality. Chest x-ray: Impression: Stable appearing chronic changes Head CT: No acute intracranial abnormality. Hip/pelvis x-ray: No definite acute fracture, however, the patient has severe pain consider CT. Extremity CT: There is a total left hip prosthesis in alignment. Constipation and impaction with solid stool. No evidence of acute fracture. Assessment: Mr. 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 He is being admitted for physical therapy and occupational therapy evaluation as well as possible chcf care placement. Plan: Left hip contusion -patient fell while at home, this was witnessed by at home caregivers -imaging results as above, no signs of acute fracture -hx of left total hip replacement -patient yells out in pain when his left leg is moved. Fall -secondary to gait and mobility disorder due to deconditioning -Physical therapy and occupational therapy consults placed -Patient needs to be evaluated for possible placement into a chcf care facility -The fall was not witnessed by the patient's nephew, it is unclear if the fall was witnessed by a home health worker Dementia -Patient appears to have advanced dementia as he is unable to answer my questions or provide any history -Alert and oriented x 0 -bedside swallow evaluation needed to determine proper diet -full liquid diet started -Patient may need sitter if he becomes restless Seizure disorder -continue depakote and caramazepine -current serum levels are wnl Hypothyroidism -continue levothyroxine Hypertension -patient is normotensive -continue metoprolol GERD DVT prophylaxis: Continue heparin Disposition: Patient is currently a full code. In his last hospital note from 03/23/21 it was noted that patient filled out a MOLST form in 2018 indicating he would like to be a full code. Will need to speak to patient's nephew, Neel wood [phone], to discuss current code status. Patient will be evaluated by PT/OT in the AM. He will likely need placement in a director long term care care facility. Home Medications Scheduled Aspirin (Aspirin EC) 81 Mg Tablet.dr, 81 MG PO DAILY, (Reported) Bisacodyl (Dulcolax) 10 Mg Supp.rect, 1 SUP AL DAILY for constipation Carbamazepine (Carbamazepine) 200 Mg Tablet, 300 MG PO QAM, (Reported) Carbamazepine (Carbamazepine) 200 Mg Tablet, 200 MG PO QHS, (Reported) Cholecalciferol (Vitamin D3) (Vitamin D3) 1,000 Unit Tablet, 1,000 UNIT PO DAILY, (Reported) Cyanocobalamin (Vitamin B-12) (Vitamin B-12) 1,000 Mcg Tablet, 1,000 MCG PO DAILY, (Reported) Divalproex Sodium (Divalproex Sodium ER) 250 Mg Tab.er.24h, 750 MG PO BID, (Reported) Levothyroxine Sodium (Synthroid) 75 Mcg Tablet, 75 MCG PO DAILY, (Reported) Metoprolol Tartrate (Metoprolol Tartrate) 25 Mg Tablet, 25 MG PO BID, (Reported) Allergies Coded Allergies: No Known Allergies (Verified , 10/29/08) A-FIB/CHADSVASC A-FIB History Current/History of A-Fib/PAF?: No Current PO Anticoag Therapy: No Vital Signs Vital Signs Date Time Temp Pulse Resp B/P (MAP) Pulse Ox O2 Delivery O2 Flow Rate FiO2 09/04/21 22:45 89 17 134/86 (102) 09/04/21 22:00 91 09/04/21 21:45 Room Air 09/04/21 14:31 98.0 Laboratory Data Labs 24H Laboratory Tests 2 09/04/21 17:52: Immature Granulocyte % (Auto) 0.4, Neutrophils (%) (Auto) 72.3H, Lymphocytes (%) (Auto) 14.9L, Monocytes (%) (Auto) 11.2H, Eosinophils (%) (Auto) 0.8, Basophils (%) (Auto) 0.4, Neutrophils # (Auto) 5.3, Lymphocytes # (Auto) 1.1L, Monocytes # (Auto) 0.8, Eosinophils # (Auto) 0.1, Basophils # (Auto) 0.0, Nucleated Red Blood Cells % (auto) 0.0, Anion Gap 5L, Glomerular Filtration Rate > 60.0, Calcium Level 9.0, Total Bilirubin 0.3, Direct Bilirubin 0.1, Aspartate Amino Transf (AST/SGOT) 19, Alanine Aminotransferase (ALT/SGPT) 27, Alkaline Archie sphatase 75, Total Creatine Kinase 57, Creatine Kinase MB 1.1, Creatine Kinase MB Relative Index 1.93, Troponin I < 0.02, Total Protein 6.7, Albumin 3.0L, Albumin/Globulin Ratio 0.8, Thyroid Stimulating Hormone (TSH) 2.230, Free Thyroxine 0.91, Valproic Acid (Depakene) Level 51.5, Carbamazepine (Tegretol) Level 7.5 09/04/21 21:10: Coronavirus (COVID-19)(PCR) NEGATIVE, Influenza Type A (RT-PCR) NEGATIVE, Influenza Type B (RT-PCR) NEGATIVE, Respiratory Syncytial Virus (PCR) NEGATIVE CBC/BMP Laboratory Tests 09/04/21 17:52 Plan / VTE VTE Prophylaxis Ordered?: Yes GME ATTESTATION GME ATTESTATION My faculty preceptor for this patient encounter was physically present during the encounter and was fully available. All aspects of the patient interview, examination, medical decision making process, and medical care plan development were reviewed and approved by the faculty preceptor. The faculty preceptor is aware and concurs with the plan as stated in the body of this note and will attest to such by his/her cosignature. ATTENDING NOTE IJes, have independently examined this patient and performed my own physical exam, as well as reviewed the documentation and edited where necessary. I have discussed in detail with the resident / student the findings and plan of treatment as documented by the resident / student and edited their note. I agree with their findings and treatment plan and have edited their documentation. I will continue to follow the patient during this hospital stay. JAMIL ROBISON DO Sep 04, 2021 23:59 CHICO DOSS MD Sep 10, 2021 04:24
[2021-09-05 02:27] VITALS: BP 146/79
[2021-09-05] MEDS: DIVALPROEX 250MG *ER* TAB PO SCH ×2 (04:39→10:13)
[2021-09-05] MEDS: DOCUSATE SODIUM 100MG CAPSULE PO SCH ×2 (04:39→10:13)
[2021-09-05] MEDS: METOPROLOL TART 25 MG TABLET PO SCH ×2 (04:40→10:16)
[2021-09-05 05:59] VITALS: BP 150/80
[2021-09-05] MEDS ORDERED: BISACODYL 10 MG SUPP PR ONE (07:45)
[2021-09-05] MEDS ORDERED: FLEET ENEMA PR PRN (07:45)
[2021-09-05] MEDS ORDERED: ASPIRIN 81MG ENTERIC TABLET PO SCH (09:00)
[2021-09-05] MEDS ORDERED: HEPARIN SOD (PORCINE) 5000UNITS/ML 1ML VIAL/SYRINGE SC SCH (09:00)
[2021-09-05] MEDS ORDERED: VITAMIN D 1,000 INTERNATIONAL UNITS TABLET PO SCH (09:00)
[2021-09-05] MEDS ORDERED: MOM 30ML SUSPENSION UDC PO SCH (09:00)
[2021-09-05] MEDS ORDERED: carBAMazepine 100MG *1/2* TABLET PO SCH (09:00)
[2021-09-05] MEDS ORDERED: LEVOTHYROXINE 50MCG TABLET (0.05MG) PO SCH (09:00)
[2021-09-05 10:16] VITALS: BP 150/80
[2021-09-05] MEDS ORDERED: SYNT75TA PO (13:26)
[2021-09-05] MEDS ORDERED: DULC10SU2 PR (15:27)
--- NOTE | 2021-09-05 19:03 | DS.PDOC ---
Discharge Summary General Date of Admission Sep 04, 2021 at 22:42 Date of Discharge 09/05/21 Discharge Summary PROCEDURES PERFORMED DURING STAY: [None]. DISCHARGE DIAGNOSES: Mechanical fall and left hip contusion Fecal impaction and constipation. SECONDARY DIAGNOSIS: Advanced Dementia with total care at home Seizure Disorder Hypothyroidism Hypertension GERD Mostly Wheel chair bound, only stand and pivot. Left Hip prosthetic hip COMPLICATIONS/CHIEF COMPLAINT: Contusion Of Left Hip, Fall, Gait Disturbance. HOSPITAL COURSE: History of present illness: Mr. Barajas is a 81 year old male with advanced dementia who presented to the emergency department after a witness ed fall at home this afternoon. 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 A home health worker was in the home at the time of the fall but the circumstances of the fall are not known as the nephew was not present at the time. The patient is wheelchair bound and only able to pivot and walk a few steps with assistance. It is not known whether the patient can eat solid foods or is on a pureed diet. The emergency room physician spoke to the nephew, Neel Barajas, who reported that at baseline the patient is confused and requires several attempts before he can give a simple answer. The nephew indicated that patients mentation has been deteriorating over time. While in the ED, the patient was found to have a left hip contusion without fracture. CT of the Hip was done also which did not show any fracture. It did show fecal impaction and large amount of solid stool. Patient was given a bowel regimen with enema and dulcolax supp. After suppository patient had very good results. Prosthesis was in good alignment. Patient's family was contacted by [facility] and it was verified that they are able to provide care for the patient and wanted to take him home. kenna was discharged home in a stable condition. DISCHARGE MEDICATIONS: Please see below. ALLERGIES: Please see below. PHYSICAL EXAMINATION ON DISCHARGE: VITAL SIGNS: Please see below. General: A frail appearing elderly male lying in bed in no distress , opens eyes when called but unable to answer any questions. HEENT: PERRLA, mucous membranes are moist and pink, no lymphadenopathy noted Cardiovascular: Regular rate and rhythm, no murmurs were appreciated, pulses 2+ throughout Pulmonary: lungs clear to auscultation, no added sounds heard. Abdomen: soft, normal bowel sounds, nontender to palpation in all four quadrants Extremities: non tender to palpation along the lateral aspect of either hip, no edema noted. Left hip movement is painfull. Psych: the patient is alert and oriented x 0. He does make eye contact occasion ally but does not speak. LABORATORY DATA: Please see below. IMAGING: CT of left hip: Imaging protocol: CT of the Left lower extremity without contrast was performed. Exam focused on the hip. Radiation optimization: All CT scans at this facility use at least one of these dose optimization techniques: automated exposure control; mA and/or kV adjustment per patient size (includes targeted exams where dose is matched to clinical indication); or iterative reconstruction. 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 A partially united fragment is noted along the anterior aspect of the proximal femur. There is no evidence of acute fracture. Soft tissues: Normal. Bowel: There is constipation with an impaction of solid stool in the rectum. IMPRESSION: 1. 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 2. Constipation and impaction with solid stool. 3. No evidence of acute fracture. ACTIVITY: [As tolerated]. DIET: As tolerated DISPOSITION: 01 Home, with services DISCHARGE INSTRUCTIONS: Follow up with PMD in 2 weeks DISCHARGE CONDITION: [Stable]. TIME SPENT ON DISCHARGE: 35 minutes. Vital Signs/I&Os Vital Signs Date Time Temp Pulse Resp B/P (MAP) Pulse Ox O2 Delivery O2 Flow Rate FiO2 09/05/21 10:16 79 150/80 09/05/21 05:59 99.5 18 98 Room Air I&O- Last 24 Hours up to 6 AM 09/05/21 06:00 Intake Total 0 ml Balance 0 ml Laboratory Data Labs 24H Laboratory Tests 2 09/04/21 21:10: Coronavirus (COVID-19)(PCR) NEGATIVE, Influenza Type A (RT-PCR) NEGATIVE, Influenza Type B (RT-PCR) NEGATIVE, Respiratory Syncytial Virus (PCR) NEGATIVE Discharge Medications Scheduled Aspirin (Aspirin EC) 81 Mg Tablet.dr, 81 MG PO DAILY, (Reported) Bisacodyl (Dulcolax) 10 Mg Supp.rect, 1 SUP AR DAILY for constipation Carbamazepine (Carbamazepine) 200 Mg Tablet, 300 MG PO QAM, (Reported) Carbamazepine (Carbamazepine) 200 Mg Tablet, 200 MG PO QHS, (Reported) Cholecalciferol (Vitamin D3) (Vitamin D3) 1,000 Unit Tablet, 1,000 UNIT PO DAILY, (Reported) Cyanocobalamin (Vitamin B-12) (Vitamin B-12) 1,000 Mcg Tablet, 1,000 MCG PO DAILY, (Reported) Divalproex Sodium (Divalproex Sodium ER) 250 Mg Tab.er.24h, 750 MG PO BID, (Reported) Levothyroxine Sodium (Synthroid) 75 Mcg Tablet, 75 MCG PO DAILY, (Reported) Metoprolol Tartrate (Metoprolol Tartrate) 25 Mg Tablet, 25 MG PO BID, (Reported) Allergies Coded Allergies: No Known Allergies (Verified , 10/29/08) Daniela Tim MD Sep 05, 2021 19:03
== END 2021-09-05 16:25 | disposition home or self-care (01) | DRG 605 ==
LOC: EDBD 14:15 → M ED 14:15 → M ED INP 22:42 → M MS5PR 09-05 02:08
PROVIDERS: ADMIT Family Medicine; ATTEND Internal Medicine Nephrology
DX: S70.02XA Contusion of left hip, initial encounter (principal); W19.XXXA Unspecified fall, initial encounter; Y92.009 Unspecified place in unspecified non-institutional (private) residence as the place of occurrence of the external cause; Y93.9 Activity, unspecified; Y99.8 Other external cause status; F03.90 Unspecified dementia, unspecified severity, without behavioral disturbance, psychotic disturbance, mood disturbance, and anxiety; G40.909 Epilepsy, unspecified, not intractable, without status epilepticus; E03.9 Hypothyroidism, unspecified; I10 Essential (primary) hypertension; K56.41 Fecal impaction; R26.89 Other abnormalities of gait and mobility; K21.9 Gastro-esophageal reflux disease without esophagitis; Z96.642 Presence of left artificial hip joint; Z87.891 Personal history of nicotine dependence; Z74.09 Other reduced mobility; Z79.82 Long term (current) use of aspirin; Z79.899 Other long term (current) drug therapy; Z20.822 Contact with and (suspected) exposure to COVID-19; Z99.3 Dependence on wheelchair